=== PATIENT | female | born 1955 | race Caucasian/White ===

== ENCOUNTER 2019-10-03 23:58 | Inpatient (IN) | payer OTHER, SELFPAY ==
[2019-10-04] MEDS ORDERED: NA CHLORIDE 0.9% 1,000 ML ONE ×2 (00:26→01:47)
[2019-10-04 00:40] LABS: Absolute Lymphocytes (CBC) 2.6 K/uL (0.7-4.9); Basophils % 0.9 % (0-1.3); Hematocrit 42.3 % (36.0-45.0); Lymphocytes % 32.1 % (15.3-44.8); MPV 10.4 fL (7.6-11.3); RBC Red Blood Cell Count 4.58 M/uL (3.86-4.86)
[2019-10-04 00:43] LABS: Urine Glucose NEGATIVE (NEG); Urine Specific Gravity >1.030 (1.005-1.030)
[2019-10-04 00:44] LABS: Urine Blood NEGATIVE (NEG); Urine Protein TRACE (NEG)
[2019-10-04 00:52] LABS: Albumin 4.2 g/dL (3.4-5.0); Bilirubin Direct 0.1 mg/dL (0-0.2); Bilirubin Total 0.4 mg/dL (0.2-1.0); Potassium 3.7 mmol/L (3.5-5.1); Protein, Total 7.9 g/dL (6.4-8.2)
[2019-10-04] MEDS ORDERED: NACHLORIDE 0.45% 0 ML IV ONE (01:44)
[2019-10-04] MEDS ORDERED: CIPROFLOXACIN 400mg IV 400 MG/200 ML BAG IV ONE (01:45)
[2019-10-04] MEDS ORDERED: METRONIDAZOLE 500mg IVPB 500 MG/100 ML BAG IV ONE (01:45)
[2019-10-04] MEDS ORDERED: DIPHENHYDRAMINE 50 MG/ML VIAL ONE (01:47)
--- NOTE | 2019-10-04 02:06 | ER ---
Nurse's Notes [facility] Name: Claribel Clayton Age: 63 yrs Sex: Female : 1955 Arrival Date: 10/04/2019 Time: 00:00 Bed 19 Private MD: Diagnosis: Unspecified intestinal obstruction-secondary to mass Presentation: 10/04 00:10 Presenting complaint: Patient states: C/O abdominal pain and cramping for a week now wh associated with nausea and vomiting. Pt states she has an appointment with PCP next week but came to ER because she cant take the pain anymore. Transition of care: patient was not received from another setting of care. Onset of symptoms was October 04, 2019. Risk Assessment: Do you want to hurt yourself or someone else? Patient reports no desire to harm self or others. Initial Sepsis Screen: Does the patient meet any 2 criteria? No. Patient's initial sepsis screen is negative. Does the patient have a suspected source of infection? Yes: Acute abdominal pain. Care prior to arrival: None. 00:10 Method Of Arrival: Ambulatory 00:10 Acuity: MARIANNE 3 Historical: - Allergies: 00:42 Codeine; 00:42 PENICILLINS; wh - Home Meds: 00:42 lisinopril 20 mg Oral tab 1 tab twice a day [Active]; levothyroxine 25 mcg tab 1 tab wh once daily [Active]; - PMHx: 00:42 CVA; Hypertension; Hypothyroidism; wh - Immunization history:: Adult Immunizations not up to date. - Social history:: Smoking status: Patient uses tobacco products, denies chronic smoking, but will smoke occasionally. - Ebola Screening: : Patient negative for fever greater than or equal to 101.5 degrees Fahrenheit, and additional compatible Ebola Virus Disease symptoms Patient denies exposure to infectious person. Screenin:40 Abuse screen: Denies threats or abuse. Denies injuries from another. Nutritional screening: No deficits noted. Tuberculosis screening: No symptoms or risk factors identified. Fall Risk None identified. Assessment: 00:42 General: Appears in no apparent distress. Behavior is calm, cooperative, appropriate wh for age. Pain: Complains of pain in right lower quadrant and left lower quadrant Pain does not radiate. Pain currently is 5 out of 10 on a pain scale. Quality of pain is described as crampy, Pain began a week ago. Pain: Is intermittent. Neuro: Level of Consciousness is awake, alert, obeys commands, Oriented to person, place, time, situation, Appropriate for age. Cardiovascular: Heart tones S1 S2. Respiratory: Airway is patent Respiratory effort is even, unlabored, Respiratory pattern is regular, symmetrical, Breath sounds are clear bilaterally. GI: Abdomen is flat, non-distended, Bowel sounds present X 4 quads. Abd is soft and non tender X 4 quads. Reports cramping, nausea, vomiting. : No signs and/or symptoms were reported regarding the genitourinary system. EENT: No signs and/or symptoms were reported regarding the EENT system. Derm: Skin is intact, is healthy with good turgor, Skin is pink, warm \T\ dry. normal. Musculoskeletal: Circulation, motion, and sensation intact. 00:46 Reassessment: PT BP elevated notified Provider, Pt requesting to take her own BP pill wh from home meds, Provider agreaable. 02:05 Reassessment: Patient appears in no apparent distress at this time. No changes from previously documented assessment. Patient and/or family updated on plan of care and expected duration. Pain level reassessed. Patient is alert, oriented x 3, equal unlabored respirations, skin warm/dry/pink. 03:17 Reassessment: Patient appears in no apparent distress at this time. No changes from previously documented assessment. Patient and/or family updated on plan of care and expected duration. Pain level reassessed. Patient is alert, oriented x 3, equal unlabored respirations, skin warm/dry/pink. Vital Signs: 00:44 BP 192 / 98; Pulse 76; Resp 18; Temp 98.2; Pulse Ox 100% ; Weight 61.23 kg; Height 5 wh ft. 4 in. (162.56 cm); 01:30 BP 172 / 92; Pulse 76; Resp 18; Pulse Ox 97% on R/A; oe 03:00 BP 184 / 93; Pulse 89; Resp 18; Pulse Ox 99% on R/A; oe 00:44 Body Mass Index 23.17 (61.23 kg, 162.56 cm) ED Course: 00:00 Patient arrived in ED. cf2 00:07 Carolyne Montanez FNP-C is PHCP. kb 00:07 Braulio Bellamy MD is Attending Physician. kb 00:27 eFrmin Paiz is Primary Nurse. wh 00:40 Triage completed. wh 00:42 Patient has correct armband on for positive identification. Placed in gown. Bed in low wh position. Call light in reach. Side rails up X 1. Pulse ox on. NIBP on. 00:44 Arm band placed on. wh 00:44 Inserted saline lock: 22 gauge in right forearm, using aseptic technique. Blood wh collected. By Eduardo Landa RN. 00:45 Radiology exam delayed due to lab results not completed at this time. (BUN/Creatinine). kw1 01:17 Abdomen In Process Unspecified. EDMS 02:04 Gustavo Carson MD is Hospitalizing Provider. kb 03:17 No provider procedures requiring assistance completed. Patient admitted, IV remains in wh place. Administered Medications: 00:27 Drug: NS 0.9% 1000 ml Route: IV; Rate: 1000 ml; Site: right forearm; 02:02 Follow up: Response: No adverse reaction; IV Status: Completed infusion wh 01:44 CANCELLED (Other Intervention Used): NS 0.45 % 1000 ml IV at 125 ml/hr continuous kb 01:55 Drug: NS 0.9% 1000 ml Route: IV; Rate: 125 ml/hr; Site: right forearm; 03:05 Follow up: Response: No adverse reaction; IV Status: Infusion continued upon admission wh 01:58 Drug: Benadryl 12.5 mg Route: IVP; Site: right forearm; 02:23 Follow up: Response: No adverse reaction 02:00 Drug: Flagyl 500 mg Volume: 100 ml; Route: IVPB; Rate: 200 ml/hr; Infused Over: 30 wh mins; Site: right forearm; 02:23 Follow up: Response: No adverse reaction; IV Status: Completed infusion 02:18 Drug: Zofran 4 mg Route: IVP; Site: right forearm; 03:04 Follow up: Response: No adverse reaction; Nausea is decreased 02:20 Drug: fentaNYL (PF) 25 mcg {Note: RASS 0.} Route: IVP; Site: right forearm; 03:04 Follow up: Response: No adverse reaction; Pain is decreased; RASS: Alert and Calm (0) 02:22 Drug: Cipro 400 mg Volume: 200 ml; Route: IVPB; Infused Over: 60 mins; Site: right wh forearm; 03:05 Follow up: Response: No adverse reaction; IV Status: Completed infusion 03:03 Drug: hydrALAZINE 5 mg Route: IV; Rate: calculated rate; Site: right forearm; 03:19 Follow up: Response: No adverse reaction; IV Status: Completed infusion Outcome: 02:04 Decision to Hospitalize by Provider. kb 03:17 Admitted to Med/surg accompanied by tech, via wheelchair, room 206. 03:17 Admitted to Med/surg Report called to Reuben Trejo RN 03:17 Condition: stable 03:17 Instructed on the need for admit. 03:20 Patient left the ED. Signatures: Dispatcher [employer] EDCarolyne Gomez, REGLA-Marty SALES ACTIVITY MANAGER-CkEduardo Aguayo Winsy Nina Emanuel kw1 Yuli Waggoner2
--- NOTE | 2019-10-04 02:06 | EDPHYS ---
Physician Documentation [facility] Name: Claribel Clayton Age: 63 yrs Sex: Female : 1955 Arrival Date: 10/04/2019 Time: 00:00 Bed 19 Private MD: ED Physician Braulio Bellamy HPI: 10/04 01:04 This 63 yrs old Female presents to ER via Ambulatory with complaints of kb Abdominal Pain. 01:04 The patient presents with abdominal pain in the left lower quadrant. Onset: The kb symptoms/episode began/occurred 7 day(s) ago. The symptoms do not radiate. Associated signs and symptoms: Pertinent positives: nausea and vomiting. The symptoms are described as crampy, intermittent. Modifying factors: The symptoms are alleviated by nothing, the symptoms are aggravated by eating or drinking anything. Severity of pain: At its worst the pain was moderate in the emergency department the pain has resolved. The patient has not experienced similar symptoms in the past. The patient has not recently seen a physician. Pt reports LLQ cramps that are intermittent, abd bloating and nausea/vomiting. Reports cramps and bloating started 7 days ago and seems to be getting worse. Reports nausea and vomiting last night. States a lot of her coworkers are out with the stomach bug. Historical: - Allergies: 00:42 Codeine; wh 00:42 PENICILLINS; wh - Home Meds: 00:42 lisinopril 20 mg Oral tab 1 tab twice a day [Active]; levothyroxine 25 mcg tab 1 tab wh once daily [Active]; - PMHx: 00:42 CVA; Hypertension; Hypothyroidism; wh - Immunization history:: Adult Immunizations not up to date. - Social history:: Smoking status: Patient uses tobacco products, denies chronic smoking, but will smoke occasionally. - Ebola Screening: : Patient negative for fever greater than or equal to 101.5 degrees Fahrenheit, and additional compatible Ebola Virus Disease symptoms Patient denies exposure to infectious person. ROS: 01:04 Constitutional: Negative for fever, chills, and weight loss, ENT: Negative for injury, kb pain, and discharge, Neck: Negative for injury, pain, and swelling, Cardiovascular: Negative for chest pain, palpitations, and edema, Respiratory: Negative for shortness of breath, cough, wheezing, and pleuritic chest pain, Back: Negative for injury and pain, : Negative for injury, bleeding, discharge, and swelling, MS/Extremity: Negative for injury and deformity, Skin: Negative for injury, rash, and discoloration, Neuro: Negative for headache, weakness, numbness, tingling, and seizure. 01:04 Abdomen/GI: Positive for abdominal pain, nausea and vomiting. Exam: 01:04 Constitutional: This is a well developed, well nourished patient who is awake, alert, kb and in no acute distress. Head/Face: Normocephalic, atraumatic. ENT: Nares patent. No nasal discharge, no septal abnormalities noted. Tympanic membranes are normal and external auditory canals are clear. Oropharynx with no redness, swelling, or masses, exudates, or evidence of obstruction, uvula midline. Mucous membranes moist. Neck: Trachea midline, no thyromegaly or masses palpated, and no cervical lymphadenopathy. Supple, full range of motion without nuchal rigidity, or vertebral point tenderness. No Meningismus. Chest/axilla: Normal chest wall appearance and motion. Nontender with no deformity. No lesions are appreciated. Cardiovascular: Regular rate and rhythm with a normal S1 and S2. No gallops, murmurs, or rubs. Normal PMI, no JVD. No pulse deficits. Respiratory: Lungs have equal breath sounds bilaterally, clear to auscultation and percussion. No rales, rhonchi or wheezes noted. No increased work of breathing, no retractions or nasal flaring. Back: No spinal tenderness. No costovertebral tenderness. Full range of motion. Skin: Warm, dry with normal turgor. Normal color with no rashes, no lesions, and no evidence of cellulitis. MS/ Extremity: Pulses equal, no cyanosis. Neurovascular intact. Full, normal range of motion. Neuro: Awake and alert, GCS 15, oriented to person, place, time, and situation. Cranial nerves II-XII grossly intact. Motor strength 5/5 in all extremities. Sensory grossly intact. Cerebellar exam normal. Normal gait. 01:04 Abdomen/GI: Inspection: abdomen appears normal, Bowel sounds: normal, in all quadrants, Palpation: soft, in all quadrants, mild abdominal tenderness, in the left lower quadrant. Vital Signs: 00:44 BP 192 / 98; Pulse 76; Resp 18; Temp 98.2; Pulse Ox 100% ; Weight 61.23 kg; Height 5 wh ft. 4 in. (162.56 cm); 01:30 BP 172 / 92; Pulse 76; Resp 18; Pulse Ox 97% on R/A; oe 03:00 BP 184 / 93; Pulse 89; Resp 18; Pulse Ox 99% on R/A; oe 00:44 Body Mass Index 23.17 (61.23 kg, 162.56 cm) wh MDM: 00:07 Patient medically screened. kb 01:06 Data reviewed: vital signs, nurses notes. Data interpreted: Pulse oximetry: on room air kb is 100 %. Interpretation: normal. 01:44 Counseling: I had a detailed discussion with the patient and/or guardian regarding: the kb historical points, exam findings, and any diagnostic results supporting the discharge/admit diagnosis, lab results, radiology results, the need for further work-up and treatment in the hospital. 01:46 Physician consultation: Gustavo Carson MD was contacted at 01:49, regarding admission, kb to the medical/surgical unit. patient's condition, wants Dr Houston consulted first to make sure GI is not needed in this case. . 02:02 Physician consultation: Boris Houston MD was contacted at 02:02, regarding consult, patient's condition, and will see patient later today. 02:02 Physician consultation: Gustavo Carson MD was contacted at 02:02, regarding admission, patient's condition, and will see patient shortly. 10/04 00:16 Order name: Basic Metabolic Panel kb 10/04 00:16 Order name: CBC with Diff kb 10/04 00:16 Order name: Hepatic Function; Complete Time: 00:53 kb 10/04 00:16 Order name: Lipase; Complete Time: 00:53 kb 10/04 00:17 Order name: Basic Metabolic Panel; Complete Time: 00:53 EDMS 10/04 00:17 Order name: CBC with Automated Diff; Complete Time: 00:43 EDMS 10/04 00:25 Order name: Urine Dipstick--Ancillary (enter results); Complete Time: 00:53 ar5 10/04 02:50 Order name: CBC with Automated Diff EDMS 10/04 02:50 Order name: CBC with Automated Diff EDMS 10/04 02:50 Order name: Carcinoembryonic Antigen EDLA 10/04 02:50 Order name: Carcinoembryonic Antigen EDLA 10/04 02:50 Order name: Comprehensive Metabolic Panel EDLA 10/04 02:50 Order name: Comprehensive Metabolic Panel EDLA 10/04 02:50 Order name: Magnesium EDMS 10/04 00:57 Order name: Abdomen EDMS 10/04 02:50 Order name: Magnesium EDMS 10/04 02:50 Order name: Phosphorus EDMS 10/04 02:50 Order name: Phosphorus EDMS 10/04 02:50 Order name: Protime (+INR) EDMS 10/04 02:50 Order name: Protime (+INR) EDLA 10/04 02:50 Order name: PTT, Activated Partial Thromb EDLA 10/04 02:50 Order name: PTT, Activated Partial Thromb EDLA 10/04 00:16 Order name: IV Saline Lock; Complete Time: 00:27 kb 10/04 00:16 Order name: Labs collected and sent; Complete Time: 00:27 kb 10/04 00:16 Order name: Urine Dipstick-Ancillary (obtain specimen); Complete Time: 00:27 kb 10/04 02:49 Order name: CONS Physician Consult [facility] 10/04 02:49 Order name: NPO EDLA Administered Medications: 00:27 Drug: NS 0.9% 1000 ml Route: IV; Rate: 1000 ml; Site: right forearm; 02:02 Follow up: Response: No adverse reaction; IV Status: Completed infusion 01:44 CANCELLED (Other Intervention Used): NS 0.45 % 1000 ml IV at 125 ml/hr continuous kb 01:55 Drug: NS 0.9% 1000 ml Route: IV; Rate: 125 ml/hr; Site: right forearm; 03:05 Follow up: Response: No adverse reaction; IV Status: Infusion continued upon admission wh 01:58 Drug: Benadryl 12.5 mg Route: IVP; Site: right forearm; 02:23 Follow up: Response: No adverse reaction 02:00 Drug: Flagyl 500 mg Volume: 100 ml; Route: IVPB; Rate: 200 ml/hr; Infused Over: 30 wh mins; Site: right forearm; 02:23 Follow up: Response: No adverse reaction; IV Status: Completed infusion 02:18 Drug: Zofran 4 mg Route: IVP; Site: right forearm; 03:04 Follow up: Response: No adverse reaction; Nausea is decreased 02:20 Drug: fentaNYL (PF) 25 mcg {Note: RASS 0.} Route: IVP; Site: right forearm; 03:04 Follow up: Response: No adverse reaction; Pain is decreased; RASS: Alert and Calm (0) 02:22 Drug: Cipro 400 mg Volume: 200 ml; Route: IVPB; Infused Over: 60 mins; Site: right forearm; 03:05 Follow up: Response: No adverse reaction; IV Status: Completed infusion 03:03 Drug: hydrALAZINE 5 mg Route: IV; Rate: calculated rate; Site: right forearm; 03:19 Follow up: Response: No adverse reaction; IV Status: Completed infusion Disposition: 09:00 Co-signature as Attending Physician, Braulio Bellamy MD I agree with the assessment and emigdio plan of care. Disposition: 10/04/19 02:04 Hospitalization ordered by Gustavo Carson for Inpatient Admission. Preliminary diagnosis is Unspecified intestinal obstruction - secondary to mass. - Bed requested for Telemetry/MedSurg (Inpatient). - Status is Inpatient Admission. - Condition is Stable. - Problem is new. - Symptoms are unchanged. UTI on Admission? No Signatures: Dispatcher [employer] Carolyne Larson, LOOM OPERATOR APPRENTICE-C LOOM OPERATOR APPRENTICE-Ckb Braulio Bellamy MD MD cha Ballard, Brenda, RN RN Fermin Rodriguez Corrections: (The following items were deleted from the chart) 00:57 00:17 Abdomen Pelvis W Con+CT.RAD.BRZ ordered. EDLA EDLA 01:44 01:37 NS 0.45 % 1000 ml IV at 125 ml/hr continuous ordered. kb kb 02:33 02:04 Hospitalization Ordered by Gustavo Carson MD for Inpatient Admission. Preliminary bb diagnosis is Unspecified intestinal obstruction - secondary to mass. Bed requested for Telemetry/MedSurg (Inpatient). Status is Inpatient Admission. Condition is Stable. Problem is new. Symptoms are unchanged. UTI on Admission? No. kb 03:20 02:33 10/04/2019 02:04 Hospitalization Ordered by Gustavo Carson MD for Inpatient Admission. Preliminary diagnosis is Unspecified intestinal obstruction - secondary to mass. Bed requested for Telemetry/MedSurg (Inpatient). Status is Inpatient Admission. Condition is Stable. Problem is new. Symptoms are unchanged. UTI on Admission? No. bb
[2019-10-04] MEDS ORDERED: FENTANYL CITR 100 MCG/2 ML ONE ×2 (02:18→13:08)
[2019-10-04] MEDS ORDERED: ONDANSETRON 4 MG/2 ML VIAL ONE ×2 (02:18→13:09)
[2019-10-04] MEDS ORDERED: ACETAMINOPHEN 650MG/RECT SUPP RECT PRN (02:44)
[2019-10-04] MEDS ORDERED: NA CHLORIDE 0.9% 1,000 ML IV SCH ×2 (03:00→13:00)
[2019-10-04] MEDS ORDERED: HYDRALAZINE HCL 20 MG/ML VIAL ONE (03:01)
[2019-10-04] MEDS ORDERED: Levofloxacin500mg IV 500 MG/100 ML BAG IV ONE (04:00)
[2019-10-04] MEDS: HYDROMORPHONE HCL 1 MG/ML INJ IV PRN ×3 (04:53→23:33)
[2019-10-04] MEDS: ONDANSETRON 4 MG/2 ML VIAL IV PRN ×3 (04:53→12:35)
[2019-10-04] MEDS: METRONIDAZOLE 500mg IVPB 500 MG/100 ML BAG IV SCH ×4 (06:11→23:26)
[2019-10-04] MEDS ORDERED: ONDANSETRON 4 MG/2 ML VIAL IV ONE (06:32)
[2019-10-04] MEDS ORDERED: METOPROLOL TARTRATE 5 MG/5 ML INJ IV STA (07:17)
--- NOTE | 2019-10-04 07:59 | P.HP ---
Certification for Inpatient Patient admitted to: Inpatient With expected LOS: >2 Midnights Patient will require the following post-hospital care: None Practitioner: I am a practitioner with admitting privileges, knowledge of patient current condition, hospital course, and medical plan of care. Services: Services provided to patient in accordance with Admission requirements found in Title 42 Section 412.3 of the Code of Federal Regulations Patient History Date of Service: 10/04/19 Reason for admission: Abdominal pain; intractable nausea and vomiting; sigmoid colon mass History of Present Illness: Patient is 63-year-old female came to the hospital with severe abdominal pain. This is been going on for the last 5 days and has progressively worsened. Patient was trying to stay working at the [employer] but the pain became so severe. She started having intractable nausea and vomiting. She came into the ER for further evaluation. In the emergency room patient was found have moderate amount of stool in her left colon. She also had a sigmoid colon mass that was 5.5 cm x 4.4cm. Spoke to ER mid level and they spoke with General surgery. They wanted to admit the patient to our hospital and proceed with further workup while she is an inpatient. Will admit her and get her medically stable for surgical intervention. He will probably need a partial colectomy. Surgery to further evaluate later today. Allergies Penicillins Allergy (Intermediate, Verified 10/04/19 03:45) Hives/Rash codeine [Codeine] Adverse Reaction (Mild, Verified 10/04/19 03:45) Nausea/Vomiting Home Medications: Levothyroxine Sodium 25 mcg PO DAILY 10/04/19 Lisinopril 1 tab PO BID 10/04/19 - Past Medical/Surgical History Has patient received pneumonia vaccine in the past: No Diabetic: No -: CVA -: HTN -: Hypothyroidism Past Surgical History: Patient denies surgical history - Family History Father Family History: Reviewed- Non-Contributory - Social History Smoking Status: Never smoker Alcohol use: Yes CD- Drugs: No Caffeine use: Yes Place of Residence: Home Review of Systems 10-point ROS is otherwise unremarkable Physical Examination - Vital Signs Temperature: 97.9 F Blood Pressure: 181/95 Pulse: 115 Respirations: 18 Pulse Ox (%): 97 - Physical Exam General: Alert, In no apparent distress HEENT: Atraumatic, PERRLA, Mucous membr. moist/pink, EOMI, Sclerae nonicteric Neck: Supple, 2+ carotid pulse no bruit, No LAD, Without JVD or thyroid abnormality Respiratory: Clear to auscultation bilaterally, Normal air movement Cardiovascular: Regular rate/rhythm, Normal S1 S2, No murmurs Gastrointestinal: Normal bowel sounds, Soft and benign, Non-distended, Tenderness (Mild tenderness in left lower quadrant) Musculoskeletal: No clubbing, No swelling, No tenderness Integumentary: No rashes Neurological: Normal gait, Normal speech, Normal strength at 5/5 x4 extr, Normal tone, Sensation intact, Cranial nerves 3-12 intact, Normal affect Lymphatics: No axilla or inguinal lymphadenopathy - Studies Laboratory Data (last 24 hrs) 10/04/19 00:26: WBC 8.0, Hgb 14.4, Hct 42.3, Plt Count 196 10/04/19 00:26: Sodium 139, Potassium 3.7, BUN 34 H, Creatinine 1.62 H, Glucose 109 H, Total Bilirubin 0.4, AST 20, ALT 26, Alkaline Phosphatase 92, Lipase 74 Assessment & Plan - Problems (Diagnosis) (1) Colonic mass Current Visit: Yes Status: Acute (2) Uncontrolled hypertension Current Visit: Yes Status: Acute (3) Large bowel obstruction Current Visit: Yes Status: Acute - Plan 1. Continue with IV hydration 2. Continue with IV antibiotics 3. Continue with pain control 4. NPO 5. General surgery consultation; 6. Serial H&H, and we will monitor CBC, BMP, LFTs and lipase along with electrolytes. 7. Strict blood pressure control 8. Patient with a history of stroke. However, over the last few years she has had no chest pain or shortness of breath. She is hemodynamically stable. She is low risk for cardiopulmonary complications for surgery. The benefits of her surgery outweigh the risk at this time so would recommend proceeding with surgical intervention if patient has treatable colon cancer that could be curative with partial colectomy. 9. GI and DVT prophylaxis Discharge Plan: Home Plan to discharge in: Greater than 2 days - Advance Directives Does patient have a Living Will: No Does patient have a Durable POA for Healthcare: No - Code Status/Comfort Care Code Status Assessed: Yes Code Status: Full Code Critical Care: No Time Spent Managing PTS Care (In Minutes): 45
[2019-10-04] MEDS ORDERED: METOPROLOL TARTRATE 5 MG/5 ML INJ IV PRN (09:15)
[2019-10-04] MEDS ORDERED: KCL 20 MEQ/100 mL IVPB 20 MEQ/100 ML BAG IV SCH (10:00)
[2019-10-04 10:38] LABS: Magnesium 2.1 mg/dL (1.8-2.4); Uric Acid 4.6 mg/dL (2.6-6.0)
--- NOTE | 2019-10-04 11:34 | P.PN ---
Subjective Date of Service: 10/04/19 Primary Care Provider: Dr. May Chief Complaint: Abdominal pain; intractable nausea and vomiting; sigmoid colon mass Subjective: Other (Patient stable this time. NG tube in place. Pain to the abdomen improved) Physical Examination - Vital Signs Temperature: 97.9 F Blood Pressure: 181/95 Pulse: 115 Respirations: 18 Pulse Ox (%): 97 - Physical Exam General: Alert, In no apparent distress, Cooperative HEENT: Atraumatic, Other (NG tube in place) Neck: Supple Respiratory: Clear to auscultation bilaterally, Normal air movement Cardiovascular: Abnormal pulses (Sinus tachycardia) Gastrointestinal: Hypoactive, Distended, Tenderness (No significant tenderness noted. Abdominal distention noted) Musculoskeletal: No erythema, No tenderness, No warmth Integumentary: No erythema, No warmth, No cyanosis Neurological: Normal speech, Normal strength at 5/5 x4 extr, Normal tone, Normal affect - Studies Laboratory Data (last 24 hrs) 10/04/19 00:26: WBC 8.0, Hgb 14.4, Hct 42.3, Plt Count 196 10/04/19 00:26: Sodium 139, Potassium 3.7, BUN 34 H, Creatinine 1.62 H, Glucose 109 H, Total Bilirubin 0.4, AST 20, ALT 26, Alkaline Phosphatase 92, Lipase 74 Medications List Reviewed: Yes Assessment & Plan Discharge Plan: Home Plan to discharge in: Greater than 2 days Physician Review Additional Text: Impression: Nausea, vomiting and abdominal pain secondary to large bowel obstruction complicated with 5 x 4 cm sigmoid mass Hypertension, uncontrolled Acute renal injury likely chronic disease Hypothyroidism Chronic seasonal allergies Plan: Nausea, vomiting and abdominal pain secondary to large bowel obstruction complicated with 5 x 4 cm sigmoid mass: Patient remains NPO at this time. NG tube in place. Await surgery recommendations. Patient will likely require surgical intervention. Will need to discuss with surgery if patient will require GI evaluation prior to surgery. Hypertension, uncontrolled: Will provide medication IV. Acute renal injury likely chronic disease: Continue IV fluids. Will consult Nephrology to further evaluate. Will have pharmacy adjust antibiotic therapy per renal function. Hypothyroidism: Will start medication IV Chronic seasonal allergies: Will provide nasal spray. Time Spent Managing Pts Care (In Minutes): 55
[2019-10-04] MEDS: METOPROLOL TARTRATE 5 MG/5 ML INJ IV SCH ×4 (12:00→23:26)
[2019-10-04] MEDS: NA CHLORIDE 0.9% 1,000 ML IV SCH ×2 (12:02→19:06)
[2019-10-04] MEDS: FLUTICASONE 50MCG NASAL SPRAY NAS SCH ×2 (12:24→20:10)
[2019-10-04] MEDS: LEVOTHYROXINE SODIUM 100 MCG VIAL IV SCH (12:35)
[2019-10-04] MEDS ORDERED: CLONIDINE 0.1 MG/PATCH TD SCH (13:00)
[2019-10-04] MEDS ORDERED: GLYCOPYRROLATE 0.2 MG/ML SYR ONE (13:08)
[2019-10-04] MEDS ORDERED: PROPOFOL 200 MG/20 ML VIAL IV ONE (13:08)
[2019-10-04] MEDS ORDERED: MIDAZOLAM HCL 2 MG/2 ML INJ ONE (13:08)
[2019-10-04] MEDS ORDERED: LIDOCAINE 1% MPF 5 ML VIAL ONE (13:10)
[2019-10-04] MEDS ORDERED: ROCURONIUM 50 MG/5 ML VIAL IV ONE ×2 (13:10→15:21)
[2019-10-04] MEDS ORDERED: KETOROLAC 30 MG/ML INJ ONE (13:10)
[2019-10-04] MEDS ORDERED: NEOSTIGMINE 1 MG/ML -5 ML ONE (13:10)
[2019-10-04] MEDS ORDERED: Ringers Lactate 1,000 ML IV ONE ×2 (13:18→15:07)
--- NOTE | 2019-10-04 13:29 | P.CNS ---
Primary Care Provider: Dr. May Chief Complaint: Abdominal pain; intractable nausea and vomiting; sigmoid colon mass Allergies Penicillins Allergy (Intermediate, Verified 10/04/19 03:45) Hives/Rash codeine [Codeine] Adverse Reaction (Mild, Verified 10/04/19 03:45) Nausea/Vomiting Home Medications: Levothyroxine Sodium 25 mcg PO DAILY 10/04/19 Lisinopril 1 tab PO BID 10/04/19 - Past Medical/Surgical History Diabetic: No -: CVA -: HTN -: Hypothyroidism - Family History Father Family History: Reviewed- Non-Contributory - Social History Smoking Status: Current some day smoker Alcohol use: Yes CD- Drugs: No Caffeine use: Yes Place of Residence: Home Physical Examination Temp Pulse Resp BP Pulse Ox 97.9 F 99 H 18 140/90 97 10/04/19 11:34 10/04/19 12:00 10/04/19 11:34 10/04/19 12:40 10/04/19 11:34 Laboratory Data (last 24 hrs) 10/04/19 00:26: WBC 8.0, Hgb 14.4, Hct 42.3, Plt Count 196 10/04/19 00:26: Sodium 139, Potassium 3.7, BUN 34 H, Creatinine 1.62 H, Glucose 109 H, Total Bilirubin 0.4, AST 20, ALT 26, Alkaline Phosphatase 92, Lipase 74
--- NOTE | 2019-10-04 13:32 | P.CNS ---
Date of Consult: 10/04/19 PC: This 63-year-old female presents emergency room with severe abdominal pain for diagnosis and treatment. HPC: Patient has noticed her abdomen is getting bigger over the last few days. Starting having pain in discomfort. Was trending is scheduled to be seen by her primary care physician and has an appointment for next week. However her discomfort became too great and she had to come to the emergency room. PMH: CVA, thyroid PSHx: Negative SOC: Allergic to penicillin codeine SYS REVIEW: No cough, wheeze, shortness of breath. No urinary complaints. States that she did not notice any real change in her bowel habit. However since this pain she has passed minimal gas per rectum. O/E awake alert uncomfortable vital signs however stable HEENT: Not jaundiced, NG tube in place Chest: Clear ABD: Markedly distended and tympanic LOCO: Intact DATA: CT scan demonstrates obstruction in the sigmoid colon IMPRESSION: Bowel obstruction PLAN: I will take to the operating room for exploratory laparotomy with probable colostomy. The risks of this procedure have been discussed. The possibility of bleeding, infection, injury to bowel blood vessels ureters were explained. She understands and wants us to proceed. She understands that this will not be a curative procedure and that she will require possible surgeries in the future.
[2019-10-04] MEDS ORDERED: MORPHINE 10 MG/ML VIAL ONE (13:34)
[2019-10-04] MEDS ORDERED: NA CHLORIDE 0.9% 250 ML ONE (15:14)
[2019-10-04] MEDS ORDERED: Mastisol Adhesive Liq ONE (16:08)
[2019-10-04] MEDS: HYDROMORPHONE HCL 1 MG/ML INJ ONE ×7 (16:36→17:07)
[2019-10-04] MEDS ORDERED: PROMETHAZINE 25 MG/ML VIAL ONE (16:56)
--- NOTE | 2019-10-04 16:59 | P.OP ---
Preoperative diagnosis: Bowel obstruction Postoperative diagnosis: Obstructing lesion of the sigmoid colon Primary procedure: Sigmoid resection Secondary procedure: And colostomy Estimated blood loss: Less than 30 cc Specimen: Sigmoid colon Operative Technique: The patient brought the operating room placed supine on the table. After the induction of adequate general endotracheal anesthesia, the area of the abdomen was prepped with a DuraPrep solution, and she was draped in usual aseptic manner. A generous midline incision was made. This was started approximately 3 fingers breath above the emboli kiss and brought down to just above the pubic symphysis. The underlying tissue was divided. The fascia was opened in the upper midline and this was now extended all way down to the bottom of our incision. The peritoneal cavity having been opened we were able to inspect its contents. We could see a tremendously dilated cecum transverse colon and descending colon. On tracing this was dilation of the bowel distally we could see that extended just over the pelvic brim and appeared to originate from just anterior to the sacral prominence. The Bookwalter retractor was put into position. We were now able to maneuver around the sigmoid colon on the left side. The peritoneum was opened in the bowel was mobilize medially. It was wrapped in the broad ligament of the ovary. It was removed from this and traced more medially. It appeared to be quite fixed into the true pelvis. There was a piece of small bowel that was adherent to it this was freed and allowed to returned to its normal domicile. We opened the peritoneum on the lateral left side. We were finally able to trace this down below this obstructing tumor to soft colon just above the peritoneal reflection. This maneuver was repeated on the right side in order to come down the posterior portion and take down the mesentery the bowel was divided using the VJ AE. We were now able to dissect posteriorly at takedown baby's of colon to this portion of the sigmoid. The edgar Stapler was finally placed across the bowel where it was soft enough to allow us to do so. The issue was fired and the specimen detached. The pelvis now inspected to insure adequate hemostasis. The was some venous bleeding. This was controlled with electro cautery. A Tarik- Desai drain was placed down into the true pelvis and brought out through the right lateral lower quadrant. At this point in the bowel was run. No other lesions were seen in this area. He was returned to its normal anatomical position. The colostomy site which had been marked preoperatively was now form. A circular plug of tissue was removed from the anterior abdominal wall. This is brought down to the fascia which was opened in a cruciate manner. 2 fingers were now placed into the lateral portion of the rectus sheath. The bowel was delivered up through this. The preliminary count was correct as we close the fascia. The skin was then stapled. The mom was placed over the suture line. Attention was turned towards the colostomy site itself. It was with opened and matured by his fixing it to the skin with interrupted sutures of chromic. A colostomy appliance to place on top. At the end of the procedure the patient was in a stable condition when sent to the recovery room. The final needle sponge count were correct. 1 Tarik-Desai drain had been placed. She was in a stable condition with an estimated blood loss were approximately 40 cc. Complications: None Drain(s): AGGIE drain Transferred to: Recovery Room Condition: Good
[2019-10-04] MEDS: ENOXAPARIN 40 MG/0.4 ML SQ SCH (17:00)
[2019-10-04] MEDS ORDERED: ONDANSETRON 4 MG/2 ML VIAL IV PRN (17:01)
[2019-10-04] MEDS ORDERED: MORPHINE 4 MG/ML SYR IV PRN (17:01)
--- NOTE | 2019-10-04 17:31 | CON ---
Date of Consultation: 10/04/2019 Reason For Consultation: Elevated BUN and creatinine. History Of Present Illness: This is a pleasant 63-year-old female with significant past medical hist ory of hypothyroidism, hypertension, patient came to the hospital complaining of abdominal pain for t he last couple of weeks to try to get to her primary care and because of overbook, she could not get to him. Patient denied taking any nonsteroidal. Upon admission workup, CT did not show any obstruct ion, but show possible colon mass. Patient was started on IV hydration. Original lab workup showed elevation in BUN and creatinine. For that reason, we have been consulted. Creatinine 1.6. Patient denied any knowledge of any kidney disease before reviewing the record for the patient back in 2016, creatinine 1. GFR of 54. Patient denied taking any nonsteroidal, no IV contrast. Patient denied any change in her medication recently. Patient still have nausea and vomiting. Past Medical History: 1.Hypertension. 2.Hypothyroidism. Allergies: TO PENICILLIN AND CODEINE. Home Medications: Include lisinopril and levothyroxine. Past Surgical History: Negative. Family History: Positive for hypertension. Social History: Denies smoking. Occasional alcohol. Denies drug abuse. Review of Systems: Head and Neck: No red eye. No ear pain. GI: Has nausea and vomiting. : No polyuria, no dysuria, no hematuria. Radiation Protection Technician: No vaginal discharge. Respiratory: No shortness of breath. Cardiovascular: No chest pain. Endocrine: No polydipsia. Skin: No rash. Neuro: No neuropathy. Musculoskeletal: No joint pain. Physical Examination: Vital signs: Blood pressure 181/95, pulse of 115. Head and Neck: No red eye. Lungs: Clear to auscultation. Heart: S1, S2. Tachycardic. Abdomen: Mild tenderness. EXTREMITIES: No edema. Neurologic: Alert and oriented x3. No focal. Current Medications: The patient is on: 1.Levaquin 250 q.24 hours. 2.Flagyl 500 t.i.d. 3.Lovenox. 4.Metoprolol p.r.n. 5.Tylenol. 6.Zofran. 7.Levothyroxine. 8.IV fluid, normal saline at 100 per hour. 9.Lovenox. 10.KCl. Laboratory Data: Sodium 139, potassium 3.7, bicarb 27, BUN 34, creatinine 1.6, GFR of 32, calcium 9. 4. WBC 8, H and H 14.4/42.3, platelet 196. Urinalysis; specific gravity of 1.030. Assessment And Plan: 1.Acute kidney injury secondary to prerenal, secondary to dehydration look to me still on the dry si de. I am going to bolus the patient with 1 L of normal saline. We will increase IV fluid to 125 and we will follow up the patient. 2.Hypertension, not controlled. Given the patient cannot take anything p.o., I am going to place th e patient on clonidine patch. Hold lisinopril given the acute kidney injury. 3.Hypokalemia. We will supplement. 4.Alkalosis secondary to contraction alkalosis. We will hydrate the patient. 5.Colon mass. We will follow up with Surgery. EMILY Voice ID: [id number] Report ID: [id number]
[2019-10-05 05:16] LABS: Absolute Lymphocytes (CBC) 1.5 K/uL (0.7-4.9); Basophils % 0.4 % (0-1.3); Hematocrit 33.1 % (36.0-45.0); Lymphocytes % 9.7 % (15.3-44.8); MPV 11.2 fL (7.6-11.3); RBC Red Blood Cell Count 3.47 M/uL (3.86-4.86)
[2019-10-05 05:18] LABS: Protime INR 1.05
[2019-10-05] MEDS: NA CHLORIDE 0.9% 1,000 ML IV SCH ×2 (05:20→12:02)
[2019-10-05] MEDS: METRONIDAZOLE 500mg IVPB 500 MG/100 ML BAG IV SCH ×3 (05:21→17:20)
[2019-10-05] MEDS: LEVOTHYROXINE SODIUM 100 MCG VIAL IV SCH (05:21)
[2019-10-05 05:38] LABS: Albumin 2.9 g/dL (3.4-5.0); Bilirubin Total 0.5 mg/dL (0.2-1.0); Carcinoembryonic Antigen 3.4 ng/mL (0-5.0); Magnesium 2.1 mg/dL (1.8-2.4); Phosphorus 3.1 mg/dL (2.5-4.9); Potassium 4.7 mmol/L (3.5-5.1); Protein, Total 5.7 g/dL (6.4-8.2)
[2019-10-05] MEDS: METOPROLOL TARTRATE 5 MG/5 ML INJ IV SCH ×3 (05:42→17:35)
[2019-10-05 05:46] VITALS: BMI 24.3
[2019-10-05] MEDS: Levofloxacin 250mg IV 250 MG/50 ML BAG IV SCH (06:03)
[2019-10-05] MEDS: HYDROMORPHONE HCL 1 MG/ML INJ IV PRN ×4 (06:39→20:06)
[2019-10-05] MEDS: ONDANSETRON 4 MG/2 ML VIAL IV PRN ×4 (07:58→20:19)
--- NOTE | 2019-10-05 08:51 | P.PN ---
Subjective Date of Service: 10/05/19 Primary Care Provider: Dr. May Chief Complaint: Abdominal pain; intractable nausea and vomiting; sigmoid colon mass Subjective: Improving, Other (Postop pain well controlled.) Physical Examination - Vital Signs Temperature: 98.9 F Blood Pressure: 126/66 Pulse: 84 Respirations: 19 Pulse Ox (%): 96 - Physical Exam General: Alert, In no apparent distress, Oriented x3, Cooperative HEENT: Atraumatic Neck: Supple Respiratory: Clear to auscultation bilaterally, Normal air movement Cardiovascular: Normal pulses, Regular rate/rhythm Gastrointestinal: Hypoactive, Non-distended, Other (Colostomy bag in place. Postsurgical changes noted) Musculoskeletal: No tenderness, No warmth Integumentary: No erythema, No warmth, No cyanosis Neurological: Normal speech, Normal strength at 5/5 x4 extr, Normal tone, Normal affect - Studies Medications List Reviewed: Yes Assessment & Plan Discharge Plan: Home Plan to discharge in: Greater than 2 days Physician Review Additional Text: Impression: Nausea, vomiting and abdominal pain secondary to large bowel obstruction complicated with 5 x 4 cm sigmoid mass status post sigmoid resection and colostomy postop day 1 Hypertension, uncontrolled Acute renal injury likely chronic disease Hypothyroidism Chronic seasonal allergies Post operative anemia Plan: Nausea, vomiting and abdominal pain secondary to large bowel obstruction complicated with 5 x 4 cm sigmoid mass status post sigmoid resection and colostomy postop day 1: Patient remains NPO at this time. NG tube in place. Patient did well post operatively. Patient without significant pain. Encourage incentive spirometer. Continue IV fluids and antibiotic therapy. Await further recommendations from surgery. Patient likely can be transferred to the medical or today. If so will encourage ambulation. Will continue to monitor closely. Anticipate discharge likely at the end of the week. Hypertension, uncontrolled: Overall stable. Will provide medication IV. Acute renal injury likely chronic disease: This has improved with IV fluids. Continue IV fluids at this time. Await Nephrology to make changes. Hypothyroidism: Will continue with medication IV Chronic seasonal allergies: Provide medication. Encourage incentive spirometer. Postoperative anemia: Will continue to monitor closely. Time Spent Managing Pts Care (In Minutes): 55
[2019-10-05] MEDS: FLUTICASONE 50MCG NASAL SPRAY NAS SCH ×2 (09:26→20:06)
[2019-10-05 10:00] LABS: T4,Total 11.9 ug/dL (4.8-13.9); Thyroid Stimulating Hormone 0.416 uIU/mL (0.360-3.740)
[2019-10-05 11:07] LABS: Urine Appearance CLEAR; Urine Bilirubin NEGATIVE (NEG); Urine Blood 1+ (NEG); Urine Color YELLOW; Urine Glucose NEGATIVE (NEG); Urine Protein NEGATIVE (NEG); Urine Specific Gravity 1.025 (1.005-1.030); Urine Urobilinogen 0.2 mg/dL (0.2-1.0); Urine pH 5.5 (5.0-7.0)
[2019-10-05 11:15] LABS: Urine Protein/Creatinine Ratio 0.18 ratio (<0.15)
[2019-10-05 11:27] LABS: Urine Microscopic Reflex ORDER UMIC
[2019-10-05 11:52] LABS: Urine Bacteria <20 /HPF (<20); Urine Culture Reflex Order REFLEXED; Urine Mucus 1+ /HPF (NONE SEEN)
[2019-10-05] MEDS: POLYVINYL ALCOHOL 1.4% 15 ML EACH EYE SCH (12:50)
--- NOTE | 2019-10-05 13:49 | P.PN ---
Date of Service: 10/05/19 S: The patient has no specific complaints apart from the tube in her nose. Asking about her surgery. Details were given. O: Vital signs are stable, adequate urine output. Colostomy is viable. Abdomen is softer than preoperative yesterday. Minimal out through AGGIE drain. A: Surgically stable P: I will discontinue the patient's NG tube. She may have clear liquids as tolerated. She will be transferred to the floor. We will mobilize her and work with her on colostomy care over the next 24-48 hr. The Du catheter will remain until tomorrow morning. She is to be encourage with her incentive spirometer. She also needs to ambulate
[2019-10-05] MEDS ORDERED: MINERAL OIL 30 ML UCUP FT ONE (14:00)
--- NOTE | 2019-10-05 16:59 | PN ---
Date of Progress Note: 10/05/2019 Subjective: Patient is status post surgery today with colostomy. Patient had colon mass, status pos t removal. Physical Examination: Vital Signs: Blood pressure 115/62, pulse of 62, afebrile. Patient had good urine output of 700. Chest: Clear to auscultation. Heart: S1, S2. Regular. Abdomen: Colostomy. Extremities: No edema. Laboratory Data: WBC 14.9, H and H 11/33.1, and platelets 161. Sodium 142, potassium 4.7, bicarb 27 , BUN 25, creatinine down to 1, GFR up to 52, calcium 7.9, phosphorus 3.2, magnesium 2.1. PTH 109. TSH is 0.4. Urinalysis, P-C ratio 0.1. Assessment And Plan: 1.Acute kidney injury secondary to prerenal superimposed with MORRIS inhibitor, complicated with hypoka lemia. No hyperkalemia with alkalosis. No acidosis. Obstructive uropathy has been ruled out with C T finding. Patient recovered very well after hydration. Kidney function close to normalize. I am g oing to go ahead and arrange to switch IV fluid to PPN as the patient is going to be n.p.o. for the n ext couple of days giving fresh surgery currently. 2.Hypokalemia, resolved. 3.Hypomagnesemia, resolved. 4.Alkalosis secondary to contraction alkalosis on recovery. Continue hydration. 5.Secondary hyperparathyroidism. No need for vitamin D. Currently, calcium on normal side. PTH un acceptable range. We will monitor. 6.Colon mass, status post colostomy, small bowel obstruction. We will follow up with Surgery as I mentioned we will switch the patient to PPN and we will follow up. EMILY Voice ID: [id number] Report ID: [id number]
[2019-10-05] MEDS: AA 4.25%/D10W/ELECTROLYTES 2,000 ML, Lipids 20% 250 ML with MULTIVITAMINS INJ 10 ML IV SCH ×3 (17:13)
[2019-10-05] MEDS: ENOXAPARIN 40 MG/0.4 ML SQ SCH (17:18)
[2019-10-05] MEDS ORDERED: GLUCAGON 1 MG/VIAL IM PRN (18:38)
[2019-10-05] MEDS ORDERED: D50W 25 GM/50 ML SYRINGE/VIAL IV PRN (18:38)
[2019-10-05] MEDS ORDERED: LANO/MINERAL OIL/PETRO 3.5 GM EACH EYE SCH (21:00)
[2019-10-06] MEDS: HYDROMORPHONE HCL 1 MG/ML INJ IV PRN ×5 (00:46→18:24)
[2019-10-06] MEDS: ONDANSETRON 4 MG/2 ML VIAL IV PRN ×5 (00:46→17:03)
[2019-10-06] MEDS: METRONIDAZOLE 500mg IVPB 500 MG/100 ML BAG IV SCH ×4 (00:46→17:02)
[2019-10-06] MEDS: METOPROLOL TARTRATE 5 MG/5 ML INJ IV SCH ×4 (00:47→17:02)
[2019-10-06 05:35] LABS: Potassium 4.3 mmol/L (3.5-5.1)
[2019-10-06] MEDS: INSULIN -REGULAR HUMAN 50 UNIT/0.5 ML ML SQ SCH ×4 (06:00→18:00)
[2019-10-06] MEDS: Levofloxacin 250mg IV 250 MG/50 ML BAG IV SCH (06:00)
[2019-10-06] MEDS: LEVOTHYROXINE SODIUM 100 MCG VIAL IV SCH (12:13)
[2019-10-06] MEDS: FLUTICASONE 50MCG NASAL SPRAY NAS SCH ×2 (12:14→22:15)
--- NOTE | 2019-10-06 13:41 | P.PN ---
Subjective Date of Service: 10/06/19 Primary Care Provider: Dr. May Chief Complaint: Abdominal pain; intractable nausea and vomiting; sigmoid colon mass Subjective: Other (Patient continues to do well.) Physical Examination - Vital Signs Temperature: 99.1 F Blood Pressure: 156/69 Pulse: 86 Respirations: 18 Pulse Ox (%): 95 - Physical Exam General: Alert, In no apparent distress, Oriented x3, Cooperative HEENT: Atraumatic Neck: Supple Respiratory: Clear to auscultation bilaterally, Normal air movement Cardiovascular: Normal pulses, Regular rate/rhythm Gastrointestinal: Normal bowel sounds, Other (Postsurgical changes in place. Colostomy bag in place.) Integumentary: No warmth, No cyanosis Neurological: Normal speech, Normal strength at 5/5 x4 extr, Normal tone, Normal affect - Studies Medications List Reviewed: Yes Assessment & Plan Discharge Plan: Home Plan to discharge in: 72 Hours Physician Review Additional Text: Impression: Nausea, vomiting and abdominal pain secondary to large bowel obstruction complicated with 5 x 4 cm sigmoid mass status post sigmoid resection and colostomy postop day 2 Hypertension, uncontrolled Acute renal injury likely chronic disease Hypothyroidism Chronic seasonal allergies Post operative anemia Plan: Nausea, vomiting and abdominal pain secondary to large bowel obstruction complicated with 5 x 4 cm sigmoid mass status post sigmoid resection and colostomy postop day 2: Patient currently on clear liquid diet. NG tube removed yesterday. Patient doing well post operatively. Encourage incentive spirometer. Encourage ambulation. Continue IV fluids and antibiotic therapy. Anticipate discharge likely within 3-5 days pending clinical improvement. I will turn the service over to Dr. Ortiz tomorrow. I will go over the plan of care with her. Hypertension, uncontrolled: Overall stable. Will provide medication IV. Will transition to oral medication once able to take oral intake well. Acute renal injury likely chronic disease: Will discontinued IV fluids. Await Nephrology to make changes. Hypothyroidism: Will continue with medication IV. Will transition to oral medication once patient taking good oral intake. Chronic seasonal allergies: Provide medication. Encourage incentive spirometer. Postoperative anemia: Will continue to monitor closely. Time Spent Managing Pts Care (In Minutes): 55
--- NOTE | 2019-10-06 14:03 | RAD REPORT ---
EXAM DESCRIPTION: Abdomen Pelvis Wo Contrast ADDENDUM #1 THIS REPORT CONTAINS FINDINGS THAT MAY BE CRITICAL TO PATIENT CARE: The findings were verbally discussed via telephone conference with Dr. Montanez by Dr. Sumanth Castillo on 10/04/2019 1:31 AM [facility] .The results were acknowledged and understood. Electronically signed by: Lora Castillo MD 10/04/2019 1:31 AM [facility] End of Addendum EXAM DESCRIPTION: CT Abdomen and Pelvis Without Intravenous Contrast CLINICAL HISTORY: The patient is 63 years old and is Female; ABD PAIN TECHNIQUE: Axial computed tomography images of the abdomen and pelvis without intravenous contrast. Sagittal and coronal reformatted images were created and reviewed. This CT exam was performed usi ng one or more of the following dose reduction techniques: automated exposure control, adjustment o f the mA and/or kV according to patient size, and/or use of iterative reconstruction technique. COMPARISON: No relevant prior studies available. FINDINGS: LUNG BASES: Unremarkable. No mass. No consolidation. ABDOMEN: LIVER: Homogeneous without focal mass. GALLBLADDER AND BILE DUCTS: The gallbladder is physiologically distended. No calcified gallstone s are seen. The pancreas is atrophic. PANCREAS: Unremarkable. No ductal dilation. SPLEEN: Unremarkable. ADRENALS: Unremarkable. No mass. KIDNEYS AND URETERS: No obstructing stones. No hydronephrosis. No perinephric fluid. STOMACH AND BOWEL: The stomach is minimally distended with food contents. The small bowel is rel atively normal in caliber. A large amount of stool is present throughout majority the colon. A few sc attered colonic diverticula are present. There is masslike soft tissue density/narrowing at the level of the sigmoid colon measuring 5.7 x 4.4 cm. PELVIS: APPENDIX: The appendix is normal in caliber without surrounding inflammation. BLADDER: The bladder is not well distended. REPRODUCTIVE: Calcified uterine fibroid is present. ABDOMEN and PELVIS: INTRAPERITONEAL SPACE: Unremarkable. No free air. No significant fluid collection. BONES/JOINTS: There are degenerative changes of the bones. SOFT TISSUES: The soft tissues are normal. VASCULATURE: Atherosclerosis of the vasculature is present. No abdominal aortic aneurysm. LYMPH NODES: Unremarkable. No enlarged lymph nodes. IMPRESSION: Large amount of stool throughout majority the colon with focal area of masslike thickeni ng involving the sigmoid colon. Findings are concerning for obstructive mass/malignancy. Further eval uation is warranted. Electronically signed by: Lora Castillo MD 10/04/2019 1:28 AM [facility] ADDENDUM #1 THIS REPORT CONTAINS FINDINGS THAT MAY BE CRITICAL TO PATIENT CARE: The findings were verbally discussed via telephone conference with Dr. Montanez by Dr. Sumanth Castillo on 10/04/2019 1:31 AM [facility] .The results were acknowledged and understood. Electronically signed by: Lora Castillo MD 10/04/2019 1:31 AM [facility] ADDENDUM #2 THIS REPORT CONTAINS FINDINGS THAT MAY BE CRITICAL TO PATIENT CARE: The findings were verbally discussed via telephone conference with REGLA Montanez by Dr. Sumanth Castillo on 10/04 1:37 AM [facility] .The results were acknowledged and understood. Electronically signed by: Lora Castillo MD 10/04/2019 1:38 AM [facility] End of Addendum ADDENDUM #1 THIS REPORT CONTAINS FINDINGS THAT MAY BE CRITICAL TO PATIENT CARE: The findings were verbally discussed via telephone conference with Dr. Montanez by Dr. Sumanth Castillo on 10/04/2019 1:31 AM [facility] .The results were acknowledged and understood. Electronically signed by: Lora Castillo MD 10/04/2019 1:31 AM [facility] End of Addendum EXAM DESCRIPTION: CT Abdomen and Pelvis Without Intravenous Contrast CLINICAL HISTORY: The patient is 63 years old and is Female; ABD PAIN TECHNIQUE: Axial computed tomography images of the abdomen and pelvis without intravenous contrast. Sagittal and coronal reformatted images were created and reviewed. This CT exam was performed usi ng one or more of the following dose reduction techniques: automated exposure control, adjustment o f the mA and/or kV according to patient size, and/or use of iterative reconstruction technique. COMPARISON: No relevant prior studies available. FINDINGS: LUNG BASES: Unremarkable. No mass. No consolidation. ABDOMEN: LIVER: Homogeneous without focal mass. GALLBLADDER AND BILE DUCTS: The gallbladder is physiologically distended. No calcified gallstone s are seen. The pancreas is atrophic. PANCREAS: Unremarkable. No ductal dilation. SPLEEN: Unremarkable. ADRENALS: Unremarkable. No mass. KIDNEYS AND URETERS: No obstructing stones. No hydronephrosis. No perinephric fluid. STOMACH AND BOWEL: The stomach is minimally distended with food contents. The small bowel is rel atively normal in caliber. A large amount of stool is present throughout majority the colon. A few sc attered colonic diverticula are present. There is masslike soft tissue density/narrowing at the level of the sigmoid colon measuring 5.7 x 4.4 cm. PELVIS: APPENDIX: The appendix is normal in caliber without surrounding inflammation. BLADDER: The bladder is not well distended. REPRODUCTIVE: Calcified uterine fibroid is present. ABDOMEN and PELVIS: INTRAPERITONEAL SPACE: Unremarkable. No free air. No significant fluid collection. BONES/JOINTS: There are degenerative changes of the bones. SOFT TISSUES: The soft tissues are normal. VASCULATURE: Atherosclerosis of the vasculature is present. No abdominal aortic aneurysm. LYMPH NODES: Unremarkable. No enlarged lymph nodes. IMPRESSION: Large amount of stool throughout majority the colon with focal area of masslike thickeni ng involving the sigmoid colon. Findings are concerning for obstructive mass/malignancy. Further eval uation is warranted. Electronically signed by: Lora Castillo MD 10/04/2019 1:28 AM [facility] Due to temporary technical issues with the PACS/Fluency reporting system, reports are being signed by the in house radiologist as a courtesy to ensure prompt reporting. The interpreting radiologist is f ully responsible for the content of the report.
[2019-10-06] MEDS: ENOXAPARIN 40 MG/0.4 ML SQ SCH (17:01)
[2019-10-06] MEDS: AA 4.25%/D10W/ELECTROLYTES 2,000 ML, Lipids 20% 250 ML with MULTIVITAMINS INJ 10 ML IV SCH ×3 (18:23)
--- NOTE | 2019-10-06 18:52 | P.PN ---
Date of Service: 10/06/19 S: Patient feels well, just tired. No specific complaints. Pain medicine appears to be adequate. O: Vital signs remain stable, incisions clean, ostomy viable A: Surgically stable P: Continue current therapy, anticipate removing Du catheter tomorrow, discontinuing the Tarik-Desai drain, and ambulating patient. Patient has a friend who owns a skilled nursing and she is interested in perhaps going there for a short rehab and colostomy teaching.
[2019-10-06] MEDS: POLYVINYL ALCOHOL 1.4% 15 ML EACH EYE SCH (22:15)
[2019-10-07] MEDS: METRONIDAZOLE 500mg IVPB 500 MG/100 ML BAG IV SCH ×4 (00:18→17:05)
[2019-10-07] MEDS: METOPROLOL TARTRATE 5 MG/5 ML INJ IV SCH ×4 (00:18→17:04)
[2019-10-07] MEDS: HYDROMORPHONE HCL 1 MG/ML INJ IV PRN ×4 (00:19→21:07)
[2019-10-07] MEDS: ONDANSETRON 4 MG/2 ML VIAL IV PRN ×5 (00:19→21:07)
--- NOTE | 2019-10-07 01:53 | PN ---
Date of Progress Note: 10/06/2019 Chief Complaint: Acute kidney injury secondary to prerenal azotemia, superimposed with MORRIS inhibitor. Complicated with hypokalemia. No acidosis present. Obstructive uropathy was ruled out on CT scan findings. CT scan was done without contrast. Patient underwent colostomy. She had a colon mass and underwent a colon mass removal. Review of Systems: Denies new complaints. Denies PND, orthopnea. Physical Examination: Lungs: Clear to auscultation bilaterally. Heart: S1, S2. Abdomen: Soft, benign. Extremities: No edema. Laboratory Data: Bicarbonate 27, sodium 142, potassium 4.7, BUN 25, creatinine 1.0, phosphorus 3.2, magnesium 2.1. Impression And Plan: 1. Acute on chronic kidney injury with prerenal azotemia. Continue IV hydration. Monitor electrolytes. Avoid nephrotoxic medication. BUN is 22, creatinine 0.8. There is no evidence of metabolic acidosis. Potassium level improved from 3.7 to 4.3. Monitor electrolytes. 2. Hypertension. Blood pressure controlled. Continue current treatment. KARMA/IMANI Voice ID: [id number] Report ID: [id number] [id number]
[2019-10-07] MEDS: INSULIN -REGULAR HUMAN 50 UNIT/0.5 ML ML SQ SCH ×4 (05:56→18:00)
[2019-10-07 06:02] LABS: Absolute Lymphocytes (CBC) 1.6 K/uL (0.7-4.9); Basophils % 0.9 % (0-1.3); Hematocrit 28.5 % (36.0-45.0); Lymphocytes % 15.9 % (15.3-44.8); MPV 11.2 fL (7.6-11.3); RBC Red Blood Cell Count 3.02 M/uL (3.86-4.86)
[2019-10-07] MEDS: LEVOTHYROXINE SODIUM 100 MCG VIAL IV SCH (06:02)
[2019-10-07] MEDS: Levofloxacin 250mg IV 250 MG/50 ML BAG IV SCH (06:02)
[2019-10-07 06:11] LABS: Magnesium 2.2 mg/dL (1.8-2.4); Potassium 4.1 mmol/L (3.5-5.1)
[2019-10-07] MEDS: FLUTICASONE 50MCG NASAL SPRAY NAS SCH ×2 (08:19→21:06)
--- NOTE | 2019-10-07 15:45 | P.PN ---
Subjective Date of Service: 10/07/19 Primary Care Provider: Dr. May Chief Complaint: Abdominal pain; intractable nausea and vomiting; sigmoid colon mass Patient seen and examined at bedside with RN. Chart reviewed. Case discussed with consultants. Patient continues to have nausea vomiting at this time. No other complaints to offer. Educated extensively regarding need to mobilize here in the hospital Review of Systems 10-point ROS is otherwise unremarkable Physical Examination - Vital Signs Temperature: 98.9 F Blood Pressure: 135/85 Pulse: 85 Respirations: 18 Pulse Ox (%): 92 - Physical Exam General: Alert, Cache[place] Neck: Supple, JVD not distended Respiratory: Normal air movement, Expiratory wheezes, Inspiratory wheezes Cardiovascular: Regular rate/rhythm, Normal S1 S2 Gastrointestinal: Normal bowel sounds, No tenderness Musculoskeletal: No tenderness Integumentary: No rashes Neurological: Normal speech, Normal tone, Normal affect Lymphatics: No axilla or inguinal lymphadenopathy - Studies Medications List Reviewed: Yes Assessment And Plan - Plan Assessment and plan Large bowel obstruction -most likely secondary to 5 x4 cm sigmoid mass -now status post sigmoid resection and colostomy POD 3 -currently patient is on clear liquid diet. -Not able to tolerate well. Continues to have nausea vomiting however controlled the Zofran -NG tube removed yesterday. If patient continues to have worsening of her nausea vomiting will consider getting a KUB -encourage incentive spirometer and ambulation at this time -will continue with IV fluids and antibiotic therapy here in the hospital -general surgery has been consulted. Recommendations noted Hypertension, uncontrolled: -Overall stable. Will provide medication IV. Will transition to oral medication once able to take oral intake well. Acute renal injury likely chronic disease: -improving today. -will continue monitor patient closely -nephrology has been consulted Hypothyroidism: -Will continue with medication IV. -Will transition to oral medication once patient taking good oral intake. Chronic seasonal allergies: -Provide medication. Encourage incentive spirometer. Postoperative anemia: -Will continue to monitor closely. Disposition: Pending clinical improvement at this time Discharge Plan: Home Plan to discharge in: Greater than 2 days - Code Status/Comfort Care Code Status Assessed: Yes Critical Care: No
--- NOTE | 2019-10-07 17:04 | P.PN ---
Date of Service: 10/07/19 S: Patient having a so so day. Just tired, fat up, not much of an appetite. Rather frustrated. O: Incisions are clean, colostomy is working A: Surgically stable P: Encourage p.o. diet, continue with colostomy care.
[2019-10-07] MEDS: ENOXAPARIN 40 MG/0.4 ML SQ SCH (17:05)
--- NOTE | 2019-10-07 18:38 | PN ---
Date of Progress Note: 10/07/2019 Subjective: Patient was admitted with acute kidney injury secondary to prerenal, secondary to dehydr ation, secondary to GI loss with significant hypokalemia. It was superimposed with MORRIS inhibitor. P atcornelius found to have a colon mass, status post resection today. Physical Examination: Vital Signs: Blood pressure 135/85, pulse of 85, afebrile. Patient had good urine output. Chest: Clear to auscultation. Heart: S1, S2. Regular. Abdomen: Colostomy. Extremities: No edema. Laboratory Data: WBC 10, H and H 9.6/28.5, platelet 129. Sodium 139, potassium 4.1, bicarb 30, BUN 20, creatinine 0.7, calcium 8, magnesium 2.2. Current Medications: The patient on include: 1.Levaquin. 2.Flagyl 500 t.i.d. 3.Clonidine. 4.Metoprolol. 5.Tylenol. Assessment And Plan: 1.Acute kidney injury secondary to prerenal, superimposed with the MORRIS inhibitor, recovered, resolve d. I am going to discontinue IV fluids, discontinue TPN. We will follow up. 2.Colitis. I will increase Levaquin to 500 as kidney function completely recovered. 3.Hypertension, control optimal. We will continue current treatment. 4.Colitis, as above. 5.Colon mass. Follow up with surgery. EMILY Voice ID: [id number] Report ID: [id number]
[2019-10-07] MEDS ORDERED: PNEUMOCOCCAL VACCINE 0.5 ML IMVAC ONE (21:00)
[2019-10-07] MEDS: POLYVINYL ALCOHOL 1.4% 15 ML EACH EYE SCH (21:06)
[2019-10-08] MEDS: METOPROLOL TARTRATE 5 MG/5 ML INJ IV SCH ×3 (00:49→12:00)
[2019-10-08] MEDS: METRONIDAZOLE 500mg IVPB 500 MG/100 ML BAG IV SCH ×6 (00:49→23:27)
[2019-10-08] MEDS ORDERED: Nicardipine in Saline, Iso-Osm 20 MG/200 ML IV.SOLN. IV PRN (02:36)
[2019-10-08 02:37] LABS: Troponin I < 0.02 ng/mL (0.0-0.045)
[2019-10-08] MEDS ORDERED: DILTIAZEM INJ 125 MG in NA CHLORIDE 0.9% 100 ML IVPB PRN (02:42)
[2019-10-08] MEDS ORDERED: dilTIAZem HCL 25 MG/5 ML VIAL IV ONE (02:46)
[2019-10-08] MEDS ORDERED: NA CHLORIDE 0.9% 100 ML ONE (02:46)
[2019-10-08] MEDS: ONDANSETRON 4 MG/2 ML VIAL IV PRN ×5 (04:29→23:27)
[2019-10-08 05:04] LABS: Absolute Lymphocytes (CBC) 1.5 K/uL (0.7-4.9); Basophils % 0.7 % (0-1.3); Hematocrit 31.9 % (36.0-45.0); Lymphocytes % 13.1 % (15.3-44.8); MPV 11.6 fL (7.6-11.3); RBC Red Blood Cell Count 3.38 M/uL (3.86-4.86)
[2019-10-08 05:18] LABS: Potassium 3.8 mmol/L (3.5-5.1)
[2019-10-08] MEDS: LEVOTHYROXINE SODIUM 100 MCG VIAL IV SCH (05:54)
[2019-10-08] MEDS: INSULIN -REGULAR HUMAN 50 UNIT/0.5 ML ML SQ SCH ×3 (05:55→12:00)
[2019-10-08] MEDS ORDERED: Levofloxacin500mg IV 500 MG/100 ML BAG IV SCH (06:00)
[2019-10-08] MEDS: FLUTICASONE 50MCG NASAL SPRAY NAS SCH ×2 (09:00→20:24)
[2019-10-08] MEDS: levoFLOXacin 500 MG TAB PO SCH (09:54)
--- NOTE | 2019-10-08 12:05 | EKG ---
Test Date: 2019-10-08 Test Time: 01:49:45 Medical Geneticist: CRISTIAN MEASUREMENT RESULTS: Intervals: Rate: 149 CT: QRSD: 76 QT: 286 QTc: 450 [place]: P: CT: QRS: 57 T: 43 INTERPRETIVE STATEMENTS: Atrial fibrillation with rapid ventricular response ST depression, consider subendocardial injury or digitalis effect Abnormal ECG Compared to ECG 05/21/2016 23:08:26 ST (T wave) deviation now present Sinus rhythm no longer present Electronically Signed On 10-08-19 12:03:29 RADIOLOGIC TECH by Dax Esqueda
[2019-10-08] MEDS: HYDROMORPHONE HCL 1 MG/ML INJ IV PRN ×3 (12:34→23:27)
[2019-10-08] MEDS ORDERED: SODIUM CHLORIDE 0.9% 10ML INJ IV PRN (14:04)
--- NOTE | 2019-10-08 14:22 | PN ---
Date of Progress Note: 10/08/2019 Subjective: Patient had atrial fibrillation with RVR yesterday, transferred to the ICU, placed on Ca rdizem drip. Currently back to sinus. Physical Examination: Vital Signs: Blood pressure 121/83, pulse of 76. The patient had good urine output. Chest: Clear to auscultation. Heart: S1, S2. Regular. Abdomen: Soft, nontender. Extremities: No edema. Laboratory Data: WBC 11.5, H and H of 10.6/31.9, platelets 160. Sodium 138, potassium 3.8, bicarb 2 7, BUN 19, creatinine 0.7, calcium 8.1, magnesium of 2. Current Medications: The patient on Cardizem drip, Levaquin 500 daily, metronidazole 500 t.i.d., Ministerio enox, clonidine 0.1 patch, metoprolol, levothyroxine. Assessment And Plan: 1.Acute kidney injury secondary to prerenal/contrast-induced nephropathy, recovered, resolved. 2.Hypertension with the presence of the atrial fibrillation. I am going to start the patient on met oprolol. We will decrease clonidine. 3.Atrial fibrillation with rapid ventricular response, recovered, resolved. As I mentioned above, w e will start the patient on metoprolol for rate control. Will follow up with the primary. 4.Small bowel obstruction, status post surgery, recovered. EMILY Voice ID: [id number] Report ID: [id number]
[2019-10-08] MEDS: PANTOPRAZOLE 40 MG INJ IVP SCH (14:26)
--- NOTE | 2019-10-08 14:41 | P.PN ---
Date of Service: 10/08/19 S: The patient was transferred to the ICU after having a rind of SVT. She is on a Cardizem drip. However she feels okay. O: Mental out through AGGIE drain. Colostomy looks viable. A: Surgically the patient is stable P: Continue current therapy, diet may be advanced as tolerated
--- NOTE | 2019-10-08 14:55 | P.PN ---
Subjective Date of Service: 10/08/19 Primary Care Provider: Dr. May Chief Complaint: Abdominal pain; intractable nausea and vomiting; sigmoid colon mass Patient seen and examined at bedside with RN. Chart reviewed. Case discussed with consultants. Patient overnight had atrial fibrillation with RVR. Was started on Cardizem drip and was transferred to the ICU. This morning patient is back to normal sinus rhythm. Currently on Cardizem drip getting titrated off. Was switched to p.o. metoprolol. Denies having any nausea today. Did have an episode of vomiting this morning. Review of Systems 10-point ROS is otherwise unremarkable Physical Examination - Vital Signs Temperature: 98.6 F Blood Pressure: 112/63 Pulse: 68 Respirations: 17 Pulse Ox (%): 95 - Physical Exam General: Alert, In no apparent distress HEENT: Atraumatic, PERRLA, EOMI Neck: Supple, JVD not distended Respiratory: Clear to auscultation bilaterally, Normal air movement Cardiovascular: Regular rate/rhythm, Normal S1 S2 Gastrointestinal: Normal bowel sounds, No tenderness Musculoskeletal: No tenderness Integumentary: No rashes Neurological: Normal speech, Normal tone, Normal affect Lymphatics: No axilla or inguinal lymphadenopathy - Studies Medications List Reviewed: Yes Assessment And Plan - Plan Assessment and plan Large bowel obstruction -most likely secondary to 5x4 cm sigmoid mass -now status post sigmoid resection and colostomy POD 4 -currently patient is on clear liquid diet. -Not able to tolerate well. Continues to have nausea vomiting however controlled the Zofran -NG tube removed. If patient continues to have worsening of her nausea vomiting will consider getting a KUB -encourage incentive spirometer and ambulation at this time -will continue with IV fluids and antibiotic therapy here in the hospital -general surgery has been consulted. Recommendations noted Atrial fibrillation -most likely secondary to electrolyte abnormality -currently on Cardizem drip. Will wean off as tolerated -will get echocardiogram done here in the hospital. -also on Lovenox 40 mg at this time Hypertension, uncontrolled: -Overall stable. Will provide medication IV. Will transition to oral medication once able to take oral intake well. Acute renal injury likely chronic disease: -improving today. -will continue monitor patient closely -nephrology has been consulted Hypothyroidism: -Will continue with medication IV. -Will transition to oral medication once patient taking good oral intake. Chronic seasonal allergies: -Provide medication. Encourage incentive spirometer. Postoperative anemia: -Will continue to monitor closely. Disposition: Pending clinical improvement at this time Discharge Plan: Other Plan to discharge in: Greater than 2 days - Code Status/Comfort Care Code Status Assessed: Yes Critical Care: No
--- NOTE | 2019-10-08 15:36 | RAD REPORT ---
EXAM DESCRIPTION: RAD - Abdomen 1 View (KUB) - 10/08/2019 3:31 pm CLINICAL HISTORY: s/p abdominal sx nausea/vomitting Pain COMPARISON: <Comparisons> FINDINGS: Moderate stool is seen in the colon. Non-organized distention of bowel loops is present santoyo ggesting adynamic ileus. Surgical drain and midline conrad are noted.
[2019-10-08] MEDS: METOPROLOL TAR 25 MG TAB PO SCH (17:32)
[2019-10-08] MEDS: ENOXAPARIN 40 MG/0.4 ML SQ SCH (17:33)
[2019-10-08] MEDS: cloNIDine HCL 0.1 MG TAB PO SCH (20:24)
[2019-10-08] MEDS: POLYVINYL ALCOHOL 1.4% 15 ML EACH EYE SCH (20:24)
[2019-10-09 04:51] LABS: Absolute Lymphocytes (CBC) 1.2 K/uL (0.7-4.9); Basophils % 0.8 % (0-1.3); Hematocrit 30.8 % (36.0-45.0); Lymphocytes % 13.2 % (15.3-44.8); MPV 11.3 fL (7.6-11.3); RBC Red Blood Cell Count 3.33 M/uL (3.86-4.86)
[2019-10-09 05:06] LABS: Magnesium 2.1 mg/dL (1.8-2.4); Potassium 3.7 mmol/L (3.5-5.1)
[2019-10-09] MEDS: METRONIDAZOLE 500mg IVPB 500 MG/100 ML BAG IV SCH ×4 (05:16→23:40)
[2019-10-09] MEDS: LEVOTHYROXINE SODIUM 100 MCG VIAL IV SCH (05:45)
[2019-10-09] MEDS: METOPROLOL TAR 25 MG TAB PO SCH (05:45)
[2019-10-09] MEDS: ONDANSETRON 4 MG/2 ML VIAL IV PRN ×4 (05:48→19:51)
[2019-10-09] MEDS: HYDROMORPHONE HCL 1 MG/ML INJ IV PRN ×4 (05:48→19:51)
[2019-10-09] MEDS: levoFLOXacin 500 MG TAB PO SCH (08:00)
[2019-10-09] MEDS: PANTOPRAZOLE 40 MG INJ IVP SCH (08:00)
[2019-10-09] MEDS: cloNIDine HCL 0.1 MG TAB PO SCH ×2 (08:00→19:52)
[2019-10-09] MEDS: FLUTICASONE 50MCG NASAL SPRAY NAS SCH ×2 (08:01→19:51)
--- NOTE | 2019-10-09 11:22 | CON ---
Identification: 63-year-old woman. History Of Present Illness: Ms. Clayton has been in the hospital for almost a week. She had a bow el obstruction. There was a sigmoid mass, nonmalignant, that was obstructing. She had an extensive surgery. She has a colostomy now, and while recovering, she is having trouble with ileus, trouble wi th keeping foods down, trouble with nausea and vomiting after pain medicines. Went into atrial fibri llation. She was on a Cardizem drip. She is off that now and presently she is getting metoprolol an d staying in sinus rhythm. She does not have a previous history of AFib, but we are concerned she ma y have had AFib. She had a right hemispheric stroke a couple of years ago. No cause for the stroke was seen, so a so-called cryptogenic stroke. The patient smokes but has almost managed to quit, of c ourse has not had any cigarettes for about 6 days. She has had palpitations and they went away when her physician started her on levothyroxine. Outpatient Medications: Lisinopril 20 b.i.d., levothyroxine 25 mcg daily. Physical Examination: General: She is 5 feet 4 inches, 154 pounds. Alert, oriented, pleasant, not in distress. Lungs: Clear. Heart: Shows a regular rate and rhythm. Abdomen: Soft. Extremities: Normal. No cyanosis, clubbing, or edema. Distal pulses are palpable. Plan: I think the patient should have a repeat EKG and rather than give her metoprolol, we will swit ch her to Betapace to have a better chance of maintaining sinus rhythm. We can continue to give her enoxaparin now in that if she has any more AFib, we will increase the dose of enoxaparin. MAGUI Voice ID: [id number] Report ID: [id number]
[2019-10-09] MEDS ORDERED: POTASSIUM 25 MEQ EFFERV TAB PO ONE (11:56)
--- NOTE | 2019-10-09 11:56 | P.PN ---
Subjective Date of Service: 10/09/19 Primary Care Provider: Dr. May Chief Complaint: Abdominal pain; intractable nausea and vomiting; sigmoid colon mass Subjective: Improving, Doing well Physical Examination - Vital Signs Temperature: 98.6 F Blood Pressure: 131/79 Pulse: 60 Respirations: 12 Pulse Ox (%): 96 - Physical Exam General: Alert, In no apparent distress, Oriented x3, Cooperative HEENT: Atraumatic Neck: Supple Respiratory: Clear to auscultation bilaterally, Normal air movement Cardiovascular: Normal pulses, Regular rate/rhythm Gastrointestinal: Hypoactive, Non-distended, No tenderness (No significant tenderness.), Other (Colostomy in place. Postsurgical changes noted.) Integumentary: No erythema, No warmth, No cyanosis Neurological: Normal speech, Normal strength at 5/5 x4 extr, Normal tone, Normal affect - Studies Medications List Reviewed: Yes Assessment & Plan Discharge Plan: Home Plan to discharge in: Greater than 2 days Physician Review Additional Text: Impression: Nausea, vomiting and abdominal pain secondary to large bowel obstruction complicated with 5 x 4 cm sigmoid mass status post sigmoid resection and colostomy postop day 2 related to diverticulitis per pathology Atrial fibrillation Hypertension, uncontrolled Acute renal injury likely chronic disease Hypothyroidism Chronic seasonal allergies Post operative anemia History of CVA Plan: Nausea, vomiting and abdominal pain secondary to large bowel obstruction complicated with 5 x 4 cm sigmoid mass status post sigmoid resection and colostomy postop day 2 related to diverticulitis per pathology: Patient has done well. Continue clear liquid diet. Patient was transferred to ICU the other day due to atrial fibrillation. Patient now in sinus rhythm. Continue to monitor closely. Encourage incentive spirometer. Continue physical therapy. Will discuss with surgery. Pathology shows no malignancy. Will transfer patient to the floor. Anticipate discharge in the next 3-5 days. Atrial fibrillation: Cardiology has evaluated patient. Patient with history of CVA. Cardiology has discontinued metoprolol and added Betapace. Lovenox adjusted. Hypertension, uncontrolled: Overall stable. Will provide medication IV. Will transition to oral medication once able to take oral intake well. Acute renal injury likely chronic disease: Will discuss with nephrology. Hypothyroidism: Continue with medication. Chronic seasonal allergies: Provide medication. Encourage incentive spirometer. Postoperative anemia: Will continue to monitor closely. History of CVA: Continue as recommended above. Time Spent Managing Pts Care (In Minutes): 55
--- NOTE | 2019-10-09 12:43 | PN ---
Date of Progress Note: 10/09/2019 Subjective: Patient is doing well. Atrial fibrillation has been controlled. Physical Examination: Vital Signs: When I saw the patient, blood pressure 131/79, pulse of 60. Chest: Clear to auscultation. Heart: S1, S2 regular. Abdomen: Soft. Mild tenderness. Colostomy. Extremities: No edema. Laboratory Data: H and H 10.6/30.8. Sodium 139, potassium 3.7, bicarb 28, BUN 21, creatinine 0.7, calcium 8.2, magnesium 2.1. Current Medications: Current medications the patient on include Levaquin, Flagyl, Lovenox, clonidine 0.1 b.i.d., sotalol 40 b.i.d., Zofran. Assessment And Plan: 1. Acute kidney injury secondary to prerenal superimposed with MORRIS inhibitor, recovered, resolved. 2. hypo K will continue supplement. 3. Hypertension with recent acute kidney injury. Keep holding MORRIS inhibitor. Continue beta yaritza as the patient has atrial fibrillation. We will continue to taper slowly the clonidine. Hopefully, we can discontinue. 4. Colitis. Continue current antibiotic. Follow up with primary. NICOLA/IMANI Voice ID: [id number] Report ID: [id number] LENKA
[2019-10-09] MEDS: ENOXAPARIN 40 MG/0.4 ML SQ SCH (17:00)
[2019-10-09] MEDS: SOTALOL HCL 80 MG TAB PO SCH (18:00)
[2019-10-09] MEDS: POLYVINYL ALCOHOL 1.4% 15 ML EACH EYE SCH (19:51)
--- NOTE | 2019-10-09 22:56 | EKG ---
Test Date: 2019-10-08 Test Time: 12:10:32 Wool Dyer: LAMAR MEASUREMENT RESULTS: Intervals: Rate: 74 [place]: 144 QRSD: 70 QT: 388 QTc: 430 [place]: P: 26 [place]: 144 QRS: 58 T: 60 INTERPRETIVE STATEMENTS: Sinus rhythm Normal ECG Compared to ECG 10/08/2019 01:49:45 Atrial fibrillation no longer present ST (T wave) deviation no longer present Electronically Signed On 10-09-19 22:55:39 DIET CLERK by Andrzej Delaney
[2019-10-10] MEDS: ONDANSETRON 4 MG/2 ML VIAL IV PRN ×5 (00:08→18:22)
[2019-10-10] MEDS: HYDROMORPHONE HCL 1 MG/ML INJ IV PRN ×5 (00:09→18:23)
[2019-10-10] MEDS: SOTALOL HCL 80 MG TAB PO SCH ×2 (05:11→17:00)
[2019-10-10] MEDS: LEVOTHYROXINE SODIUM 100 MCG VIAL IV SCH (05:12)
[2019-10-10] MEDS: METRONIDAZOLE 500mg IVPB 500 MG/100 ML BAG IV SCH ×3 (05:12→17:00)
[2019-10-10] MEDS: levoFLOXacin 500 MG TAB PO SCH (07:35)
[2019-10-10] MEDS: cloNIDine HCL 0.1 MG TAB PO SCH ×2 (07:35→20:51)
[2019-10-10] MEDS: PANTOPRAZOLE 40 MG INJ IVP SCH (07:36)
[2019-10-10] MEDS: FLUTICASONE 50MCG NASAL SPRAY NAS SCH ×2 (07:37→20:52)
[2019-10-10] MEDS: ALPRAZOLAM 0.25 MG TABLET PO PRN ×2 (07:55→17:01)
--- NOTE | 2019-10-10 11:08 | P.PN ---
Subjective Date of Service: 10/10/19 Primary Care Provider: Dr. May Chief Complaint: Abdominal pain; intractable nausea and vomiting; sigmoid colon mass Subjective: Improving, Doing well Physical Examination - Vital Signs Temperature: 97.4 F Blood Pressure: 140/77 Pulse: 60 Respirations: 16 Pulse Ox (%): 98 - Physical Exam General: Alert, In no apparent distress, Oriented x3, Cooperative HEENT: Atraumatic Neck: Supple Respiratory: Clear to auscultation bilaterally, Normal air movement Cardiovascular: Normal pulses, Regular rate/rhythm Gastrointestinal: Other (Postsurgical changes noted. Colostomy in place.) Musculoskeletal: No erythema, No tenderness, No warmth Integumentary: No erythema, No warmth, No cyanosis Neurological: Normal speech, Normal strength at 5/5 x4 extr, Normal tone, Normal affect - Studies Medications List Reviewed: Yes Assessment & Plan Discharge Plan: Home Plan to discharge in: 72 Hours Physician Review Additional Text: Impression: Nausea, vomiting and abdominal pain secondary to large bowel obstruction complicated with 5 x 4 cm sigmoid mass status post sigmoid resection and colostomy postop day 3 related to diverticulitis per pathology Atrial fibrillation Hypertension, uncontrolled Acute renal injury likely chronic disease Hypothyroidism Chronic seasonal allergies Post operative anemia History of CVA Plan: Nausea, vomiting and abdominal pain secondary to large bowel obstruction complicated with 5 x 4 cm sigmoid mass status post sigmoid resection and colostomy postop day 3 related to diverticulitis per pathology: Patient has done well. Continue clear liquid diet and advance as tolerated. Encourage ambulation. Patient remains in sinus rhythm. Will discuss with surgery about plan of care. Patient will need to be taught colostomy care. Pathology shows no malignancy. Encourage incentive spirometer. I will turn the service over to the hospitalist team tomorrow. I will go over the plan of care with them. Anticipate possible discharge in the next 2-3 days with clinical improvement. Atrial fibrillation: Patient remains in sinus rhythm on Betapace. Patient on DVT prophylaxis only. Patient will likely require chronic anti coagulation therapy at discharge. Will discuss further. Case discussed with cardiology. Hypertension, uncontrolled: Overall stable. Will provide medication IV. Will transition to oral medication once able to take oral intake well. Acute renal injury likely chronic disease: Will discuss with nephrology. Hypothyroidism: Continue with medication. Chronic seasonal allergies: Provide medication. Encourage incentive spirometer. Postoperative anemia: Will continue to monitor closely. History of CVA: Continue as recommended above. Time Spent Managing Pts Care (In Minutes): 55
--- NOTE | 2019-10-10 12:13 | P.PN ---
Date of Service: 10/10/19 S: Patient is back on the floor. Says she feels somewhat better today. Nausea appears to be improved O: Incisions are clean, minimal out through AGGIE drain. A: Surgically stable P: Advanced diet, anticipate discharge soon.
--- NOTE | 2019-10-10 13:23 | PN ---
She is remaining in sinus rhythm. BP elevated slightly. Her heart rate is good. Looking at her LISET DS-VASc score, she would be a candidate for chronic anticoagulation. She has 3 points on the CHADS-V ASc survey, making it a clear indication that anticoagulation will reduce her risk of stroke. We marion l discuss that at the time of discharge. For now, keeping her on the dose of Lovenox to prevent deep vein thrombosis is appropriate. YVETTE/IMANI Voice ID: [id number] Report ID: [id number]
[2019-10-10] MEDS: KCL 20 MEQ/100 mL IVPB 20 MEQ/100 ML BAG IV ONE ×2 (15:00→15:43)
[2019-10-10] MEDS ORDERED: POTASSIUM 25 MEQ EFFERV TAB PO ONE (16:04)
[2019-10-10] MEDS: ENOXAPARIN 40 MG/0.4 ML SQ SCH (16:20)
[2019-10-10 16:38] LABS: Potassium 3.5 mmol/L (3.5-5.1)
--- NOTE | 2019-10-10 18:48 | PN ---
Date of Progress Note: 10/10/2019 History: The patient admitted with colitis, abdominal mass, status post colostomy. Patient had acute kidney injury secondary to prerenal and MORRIS inhibitor, recovered. Physical Examination: Vital Signs: When I saw the patient, blood pressure 140/77, pulse of 69. Chest: Clear to auscultation. Heart: S1, S2. Regular. Abdomen: Soft, nontender. Extremities: No edema. Laboratory Data: WBC 8.9, H and H 10.6/30.8, platelets 174. Sodium 139, potassium 3.7, bicarb 28, BUN 21, creatinine 0.7, calcium 8.2, magnesium 2.1. Current Medications: Include metronidazole, Levaquin, Lovenox, clonidine 0.1, Tylenol, Zofran, hydromorphone. Assessment And Plan: 1. Acute kidney injury secondary to nonsteroidal, prerenal, angiotensin- converting enzyme inhibitor, recovered, resolved. 2. Hypokalemia. I going to go ahead and supplement. 3. Hypertension, controlled, not optimal. I am going to continue current medication. Follow up with Cardiology. 4. Atrial fibrillation as by Cardiology. NICOLA/IMANI Voice ID: [id number] Report ID: [id number] MTDJesus
[2019-10-10] MEDS: POLYVINYL ALCOHOL 1.4% 15 ML EACH EYE SCH (20:52)
[2019-10-10] MEDS: ENSURE PUDDING 4 OZ CUP PO SCH (20:54)
[2019-10-10] MEDS ORDERED: ENSURE PUDDING 4 OZ CUP PO SCH (21:00)
[2019-10-11] MEDS: METRONIDAZOLE 500mg IVPB 500 MG/100 ML BAG IV SCH ×2 (00:42→05:52)
[2019-10-11] MEDS: HYDROMORPHONE HCL 1 MG/ML INJ IV PRN (02:45)
[2019-10-11] MEDS: ONDANSETRON 4 MG/2 ML VIAL IV PRN (02:45)
[2019-10-11] MEDS: SOTALOL HCL 80 MG TAB PO SCH ×2 (05:53→16:31)
[2019-10-11 06:32] LABS: Potassium 3.7 mmol/L (3.5-5.1)
[2019-10-11] MEDS: levoFLOXacin 500 MG TAB PO SCH (08:33)
[2019-10-11] MEDS: cloNIDine HCL 0.1 MG TAB PO SCH ×2 (08:33→20:10)
[2019-10-11] MEDS: PANTOPRAZOLE 40 MG INJ IVP SCH (08:34)
[2019-10-11] MEDS: FLUTICASONE 50MCG NASAL SPRAY NAS SCH ×2 (08:35→20:06)
[2019-10-11] MEDS: ENSURE PUDDING 4 OZ CUP PO SCH ×2 (08:38→20:10)
[2019-10-11] MEDS: LEVOTHYROXINE SODIUM 100 MCG VIAL IV SCH (09:00)
--- NOTE | 2019-10-11 10:46 | P.PN ---
Subjective Date of Service: 10/11/19 Primary Care Provider: Dr. May Chief Complaint: Status post sigmoid resection with colostomy Subjective: Improving (Denies any complaints patient is not tolerating a liquid diet) Review of Systems General: Weakness Physical Examination - Vital Signs Temperature: 97.7 F Blood Pressure: 171/80 Pulse: 60 Respirations: 16 Pulse Ox (%): 98 - Physical Exam General: Alert, In no apparent distress, Oriented x3 Respiratory: Clear to auscultation bilaterally Cardiovascular: No edema, Regular rate/rhythm Gastrointestinal: Normal bowel sounds, Soft and benign - Studies Medications List Reviewed: Yes Assessment & Plan - Problems (Diagnosis) (1) Colonic mass Current Visit: Yes Status: Acute Plan: Patient is status post colon resection with a colostomy is doing well tolerating a diet still requiring pain medications on a p.r.n. basis no evidence of sepsis will plan to Dc antibiotics patient had E coli in the urine white count is now normal Physician Review Additional Text: I
[2019-10-11] MEDS ORDERED: POTASSIUM 25 MEQ EFFERV TAB PO ONE (10:59)
[2019-10-11] MEDS ORDERED: KCL 20 MEQ/100 mL IVPB 20 MEQ/100 ML BAG IV SCH (11:00)
[2019-10-11] MEDS: HYDROCODONE/APAP 10/325 TAB PO PRN ×2 (12:26→22:09)
--- NOTE | 2019-10-11 13:48 | PN ---
Date of Progress Note: 10/11/2019 Subjective: Patient doing well. Patient was admitted with colitis, found to have abdominal mass, un derwent colostomy. Patient had acute kidney injury secondary to prerenal and superimposed with MORRIS i nhibitor. Patient developed AFib with RVR. Physical Examination: Vital Signs: Blood pressure 170/80, pulse of 60, afebrile. The patient had good urine output. Chest: Clear to auscultation. Heart: S1, S2. Regular. Abdomen: Soft. Colostomy on the right side. Extremities: No edema. Laboratory Data: WBC 8.9, H and H 10.6/30.8, platelets 174. Sodium 139, potassium 3.7, bicarb 26, B UN 16, creatinine 0.7, calcium 7.8. Current Medications: Include: 1.Tylenol. 2.Sotalol. 3.Clonidine 0.1 b.i.d. 4.Alprazolam. 5.Ensure. 6.Zofran. 7.Hydromorphone. 8.KCl. Assessment And Plan: 1.Acute kidney injury secondary to prerenal, recovered, resolved. Given the persistent hypokalemia, I will challenge the patient with ftzbyhtvrap-lwvkkhalpj-hljahz inhibitor and we will follow up the patient. 2.Hypokalemia. We will supplement. Patient is going to be started on zwhiqdbjchn-nfmkceahwg-tvjtok inhibitor. 3.Alkalosis, resolved. 4.Colitis. Abdominal mass. Follow up with Surgery and Primary. NICOLA/IMANI Voice ID: [id number] Report ID: [id number]
[2019-10-11] MEDS: ENOXAPARIN 40 MG/0.4 ML SQ SCH (16:30)
[2019-10-11] MEDS: POLYVINYL ALCOHOL 1.4% 15 ML EACH EYE SCH (20:06)
[2019-10-11] MEDS: lisinopriL 10 MG TAB PO SCH (20:09)
[2019-10-12] MEDS: SOTALOL HCL 80 MG TAB PO SCH ×2 (05:32→17:00)
[2019-10-12] MEDS: LEVOTHYROXINE SODIUM 100 MCG VIAL IV SCH (05:33)
[2019-10-12] MEDS: PANTOPRAZOLE 40 MG INJ IVP SCH (08:01)
[2019-10-12] MEDS: FLUTICASONE 50MCG NASAL SPRAY NAS SCH ×2 (08:01→20:22)
[2019-10-12] MEDS: cloNIDine HCL 0.1 MG TAB PO SCH ×2 (08:01→20:22)
[2019-10-12] MEDS: ENSURE PUDDING 4 OZ CUP PO SCH ×2 (08:02→20:00)
--- NOTE | 2019-10-12 10:17 | P.PN ---
Subjective Date of Service: 10/12/19 Primary Care Provider: Dr. May Chief Complaint: Status post sigmoid resection with colostomy Subjective: Improving (He is doing really well her pain has decreased taking pain pills oral eating and drinking) Review of Systems Unremarkable General: Weakness Physical Examination - Vital Signs Temperature: 98.4 F Blood Pressure: 157/80 Pulse: 56 Respirations: 16 Pulse Ox (%): 96 - Physical Exam General: Alert, In no apparent distress, Oriented x3 Neck: Supple Respiratory: Clear to auscultation bilaterally Cardiovascular: No edema, Regular rate/rhythm Gastrointestinal: Normal bowel sounds, Soft and benign - Studies Medications List Reviewed: Yes Assessment & Plan - Problems (Diagnosis) (1) Colonic mass Current Visit: Yes Status: Acute Plan: Patient is doing much better she is eating drinking tolerating a diet minimal pain vital signs stable oxygenation normal delayed possible discharge antibiotics discontinued colostomy functioning home when okay with Dr. Lynne Discharge Plan: Home Physician Review Additional Text: I
[2019-10-12] MEDS ORDERED: POTASSIUM 25 MEQ EFFERV TAB PO ONE (10:51)
--- NOTE | 2019-10-12 14:11 | ECHO ---
HEIGHT: 5 ft 4 in WEIGHT: 145 lb 1.6 oz DATE OF STUDY: 10/08/[address]: Sultana Ortiz MD 2-DIMENSIONAL: YES M.MODE: YES DOPPLER: YES COLOR FLOW: YES TDS: YES PORTABLE: DEFINITY: BUBBLE STUDY: DIAGNOSIS: ATRIAL FIBRILLATION WITH RAPID VENTRICULAR RESPONSE CARDIAC HISTORY: CATHERIZATION: NO SURGERY: NO PROSTHETIC VALVE: NO PACEMAKER: NO MEASUREMENTS (cm) DIASTOLIC (NORMALS) SYSTOLIC (NORMALS) IVSd 0.8 (0.6-1.2) LA Diam 3.3 (1.9-4.0) LVEF 51% LVIDd 3.7 (3.5-5.7) LVIDs 2.8 (2.0-3.5) %FS 25% LVPWd 0.9 (0.6-1.2) Ao Diam 2.6 (2.0-3.7) 2 DIMENSIONAL ASSESSMENT: RIGHT ATRIUM: NORMAL LEFT ATRIUM: NORMAL RIGHT VENTRICLE: NORMAL LEFT VENTRICLE: NORMAL TRICUSPID VALVE: NORMAL MITRAL VALVE: NORMAL PULMONIC VALVE: NORMAL AORTIC VALVE: NORMAL PERICARDIAL EFFUSION: NONE AORTIC ROOT: NORMAL LEFT VENTRICULAR WALL MOTION: NORMAL DOPPLER/COLOR FLOW: TRACE TRICUSPID REGURGITATION. NORMAL RIGHT VENTRICULAR SYSTOLIC PRESSURE. COMMENTS: NORMAL 2-DIMENSIONAL ECHOCARDIOGRAM. TRACE TRICUSPID REGURGITATION. TECHNOLOGIST: DANIEL CURIEL
--- NOTE | 2019-10-12 16:54 | PN ---
Date of Progress Note: 10/12/2019 Subjective: Patient was admitted with colitis, found to have abdominal mass, status post colostomy. Patient had AFib with RVR, rate controlled right now. Physical Examination: Vital Signs: Blood pressure 157/80, pulse of 56. Patient had good urine output. Chest: Clear to auscultation. Heart: S1, S2. Regular. Abdomen: Soft. Colostomy. Extremities: No edema. Laboratory Data: H and H 10.6/30.8. Sodium 139, potassium 3.7 bicarb 26, BUN 16, creatinine 0.7, ca lcium 7.8. Assessment And Plan: 1.Acute kidney injury secondary to prerenal/hbvjnprijdw-mhpdxwadlk-lskmya inhibitor, recovered, reso lved. 2.Hypertension, controlled, not optimal. We just add MORRIS inhibitor yesterday. We will follow up re sponse. 3.Hypokalemia. We will supplement and we will follow up after adding MORRIS inhibitor. 4.Colitis with abdominal mass. Follow up with Surgery. EMILY Voice ID: [id number] Report ID: [id number]
[2019-10-12] MEDS: ENOXAPARIN 40 MG/0.4 ML SQ SCH (16:59)
[2019-10-12] MEDS: HYDROCODONE/APAP 10/325 TAB PO PRN (20:08)
[2019-10-12] MEDS: lisinopriL 10 MG TAB PO SCH (20:22)
[2019-10-12] MEDS: POLYVINYL ALCOHOL 1.4% 15 ML EACH EYE SCH (20:22)
[2019-10-13] MEDS: LEVOTHYROXINE SODIUM 100 MCG VIAL IV SCH (06:00)
[2019-10-13] MEDS: SOTALOL HCL 80 MG TAB PO SCH (06:00)
[2019-10-13] MEDS: cloNIDine HCL 0.1 MG TAB PO SCH (09:00)
[2019-10-13] MEDS: PANTOPRAZOLE 40 MG INJ IVP SCH (09:00)
[2019-10-13] MEDS: ENSURE PUDDING 4 OZ CUP PO SCH (09:00)
[2019-10-13] MEDS: FLUTICASONE 50MCG NASAL SPRAY NAS SCH (09:02)
[2019-10-13 14:00] VITALS: O2SAT 96
--- NOTE | 2019-10-13 14:08 | P.PN ---
Date of Service: 10/13/19 S: Patient has no complaints, comfortable changing her colostomy. Incision is clean. O: Vital signs are stable, colostomy working A: Surgically stable P: Discharge home see me on . Any questions or problems, go to the emergency room, or contact me.
[2019-10-13 18:13] VITALS: BP 146/76; TEMP 98.1
--- NOTE | 2019-10-14 15:53 | PN ---
Date of Progress Note: 10/13/2019 Chief Complaint: Acute kidney injury. History Of Present Illness: Patient developed severe renal hypoperfusion. Patient was found to have abdominal mass. She underwent colostomy. She has history of atrial fibrillation with rapid ventricular response. She developed acute kidney injury secondary to prerenal azotemia with acute tubular necrosis and nonoliguric urine output. Patient is stabilized with IV fluids. Renal function is at baseline. BUN is 16, creatinine 0.7. Review of Systems: Denies fever, chills. Physical Examination: Lungs: Diminished breath sounds at bases. Heart: S1, S2. Abdomen: Soft, benign. Extremities: No edema. Laboratory Data: Potassium 3.7, bicarbonate 26, BUN 16, creatinine 0.7, sodium 139, calcium 7.8. Impression And Plan: 1. Acute kidney injury secondary to prerenal azotemia complicated by jfwsrmnguty-hwxrlkbwlx-gtpzaq inhibitor effect, leading to acute tubular necrosis with nonoliguric urine function. Electrolytes stable. Renal function improved to baseline. 2. Hypokalemia. Patient received supplementation. Monitor potassium level. 3. Colitis. Abdominal mass. Follow up with surgical team. 4. Hypertension. Continue blood pressure medication. Patient is resume on MORRIS inhibitor. Patient has stable renal function. Patient needs to follow up with Nephrology. I spent 36 min including 25 min to coordinate care plan. KARMA/IMANI Voice ID: [id number] Report ID: [id number] MTDD
== END 2019-10-13 17:00 | disposition home or self-care (01) | DRG 330 ==
LOC: ER 23:58 → 2ND 10-04 02:59 → 3RD-ICU 10-04 17:35 → 4TH 10-05 15:35 → 3RD-ICU 10-08 02:15 → 4TH 10-09 12:45
PROVIDERS: ADMIT Hospitalist; ATTEND Family Medicine
PROC: 0D1E0Z4 Bypass Large Intestine to Cutaneous, Open Approach (ICD-10-PCS; 2019-10-04)
PROC: 0DTN0ZZ Resection of Sigmoid Colon, Open Approach (ICD-10-PCS; principal; 2019-10-04 13:30)
DX: K56.609 Unspecified intestinal obstruction, unspecified as to partial versus complete obstruction (principal); N17.9 Acute kidney failure, unspecified; E87.3 Alkalosis; N25.81 Secondary hyperparathyroidism of renal origin; K52.9 Noninfective gastroenteritis and colitis, unspecified; E87.6 Hypokalemia; I10 Essential (primary) hypertension; E03.9 Hypothyroidism, unspecified; E83.42 Hypomagnesemia; D64.89 Other specified anemias; I48.91 Unspecified atrial fibrillation; J30.2 Other seasonal allergic rhinitis; Z86.73 Personal history of transient ischemic attack (TIA), and cerebral infarction without residual deficits
CPT/HCPCS: 36415; 74018; 74176; 80048; 80053; 80076; 81003; 81015; 82378; 82550; 82570; 82947; 83690; 83735; 83970; 84100; 84156; 84436; 84443; 84478; 84480; 84484; 84550; 85025; 85610; 85730; 87086; 87088; 88307; 93005; 93306; 96361; 96365; 96367; 96375; 97110; 97116; 97161; 97530; 99285; C9113; J0360; J0744; J1170; J1200; J1650; J2250; J2405; J2550; J2704; J2710; J3010; J7030; J7120; Q9967

== ENCOUNTER 2019-10-17 18:02 | Emergency (ER) | payer OTHER ==
--- OUTSIDE RECORDS SUMMARY | 2019-10-17 18:05 | XMS REPORT ---
:1955 [facility] [address] [place] [id number] Care Team Providers Name Role Phone Unavailable Unavailable Unavailable Problems This patient has no known problems. Allergies, Adverse Reactions, Alerts This patient has no known allergies or adverse reactions. Medications This patient has no known medications.
--- NOTE | 2019-10-17 20:02 | ER ---
Nurse's Notes [facility] Name: Claribel Clayton Age: 63 yrs Sex: Female : 1955 Arrival Date: 10/17/2019 Time: 18:05 Bed 27 Private MD: Mendez May H Diagnosis: Colostomy status;Colostomy complication, unspecified;Urinary tract infection, site not specified Presentation: 10/17 18:13 Presenting complaint: Patient states: New colostomy is gurgling and feels like I need dm5 to have a bowel movement but nothing happens and I also feel like I need to urinate. Called Dr. Houston's office and he called in a RX for Bactrim but pt has not been able to get over to pick it up. started today. Transition of care: patient was not received from another setting of care. Onset of symptoms was October 17, 2019. Risk Assessment: Do you want to hurt yourself or someone else? Patient reports no desire to harm self or others. Initial Sepsis Screen: Does the patient meet any 2 criteria? HR > 90 bpm. No. Patient's initial sepsis screen is negative. Does the patient have a suspected source of infection? Yes: Other: new colostomy. Care prior to arrival: None. 18:13 Method Of Arrival: Ambulatory dm5 18:13 Acuity: MARIANNE 3 dm5 Triage Assessment: 18:23 General: Appears in no apparent distress. comfortable, Behavior is cooperative, bp appropriate for age, anxious. Pain: Denies pain. EENT: No deficits noted. Neuro: No deficits noted. Cardiovascular: No deficits noted. Respiratory: No deficits noted. GI: Colostomy site is reddened. is intact. : No signs and/or symptoms were reported regarding the genitourinary system. Derm: No deficits noted. Musculoskeletal: No deficits noted. Historical: - Allergies: 18:17 Codeine; dm5 18:17 PENICILLINS; dm5 - Home Meds: 18:17 levothyroxine 25 mcg tab 1 tab once daily [Active]; lisinopril 20 mg Oral tab 1 tab dm5 twice a day [Active]; 18:27 Eliquis 5 mg oral tab 1 tab 2 times per day [Active]; clonidine HCl 0.1 mg Oral tab 1 bp tab 2 times per day [Active]; sotalol 80 mg Oral tab 0.5 tab 2 times per day [Active]; - PMHx: 18:27 CVA; Hypertension; Hypothyroidism; bp - PSHx: 18:27 Colostomy; bp - Immunization history:: Adult Immunizations up to date. - Social history:: Smoking status: unknown. - Ebola Screening: : No symptoms or risks identified at this time. - Family history:: not pertinent. Screenin:27 Abuse screen: Denies threats or abuse. Denies injuries from another. Nutritional bp screening: No deficits noted. Tuberculosis screening: No symptoms or risk factors identified. Fall Risk None identified. Assessment: 18:27 General: SEE TRIAGE NOTE. bp 20:16 Reassessment: Patient appears in no apparent distress at this time. Patient and/or ss family updated on plan of care and expected duration. Pain level reassessed. Patient is alert, oriented x 3, equal unlabored respirations, skin warm/dry/pink. Pt states she does not want CT and or blood work at this time. Dr. Bellamy notified and states okay to discharge home to follow up with PCP at this time. Pt verbalizes understanding importance of coming back to ED with worsening of symptoms Patient denies pain at this time. Vital Signs: 18:17 BP 131 / 93; Pulse 104; Resp 18; Temp 98.2; Pulse Ox 100% on R/A; Weight 63.5 kg; dm5 Height 5 ft. 4 in. (162.56 cm); Pain 0/10; 18:17 Body Mass Index 24.03 (63.50 kg, 162.56 cm) dm5 ED Course: 18:05 Patient arrived in ED. mr 18:06 Mendez May DO is Private Physician. mr 18:16 Triage completed. dm5 18:17 Arm band placed on right wrist. Patient placed in an exam room. dm5 18:22 Modesto Davis, RN is Primary Nurse. sg 18:22 Primary Nurse role handed off by Modesto Davis, JONA bp 18:22 Braxton Brooks, JONA is Primary Nurse. bp 18:27 Patient has correct armband on for positive identification. Placed in gown. Bed in low bp position. Call light in reach. Side rails up X2. 19:25 Braulio Bellamy MD is Attending Physician. [facility] 20:01 Boris Houston MD is Referral Physician. [facility] 20:15 No provider procedures requiring assistance completed. Patient did not have IV access ss during this emergency room visit. Administered Medications: 20:01 CANCELLED (Duplicate Order): Cipro 400 mg 200 ml IVPB once over 60 mins emigdio 20:14 Drug: Cipro 500 mg Route: PO; ss 20:15 Follow up: Response: Medication administered at discharge. 20:15 Not Given (Patient Refused; Dr. Bellamy notified): NS 0.9% 1000 ml IV at 1 bolus Per protocol; 1000 mL bolus Outcome: 20:02 Discharge ordered by . [facility] 20:15 Discharged to home ambulatory. 20:15 Condition: good 20:15 Discharge instructions given to patient, Instructed on discharge instructions, follow up and referral plans. medication usage, Demonstrated understanding of instructions, follow-up care, medications, Prescriptions given X 1. 20:17 Patient left the ED. Signatures: Digna Rowe, RN RN dm5 Modesto Davis, RN Braulio Longoria MD MD cha Rivera, Mary mr Smirch, Shelby, RN RN ss Peltier, Brian, RN RN bp
--- NOTE | 2019-10-17 20:03 | EDPHYS ---
Physician Documentation [facility] Name: Claribel Clayton Age: 63 yrs Sex: Female : 1955 Arrival Date: 10/17/2019 Time: 18:05 Bed 27 Private MD: Mendez May H ED Physician Braulio Bellamy HPI: 10/17 19:53 This 63 yrs old Female presents to ER via Ambulatory with complaints of emigdio Urinary Problem, Colostomy bag problem. 19:53 The patient presents with abdominal pain. Onset: The symptoms/episode began/occurred 2 emigdio day(s) ago. The symptoms do not radiate. Associated signs and symptoms: none. The symptoms are described as constant, crampy. Severity of pain: At its worst the pain was mild in the emergency department the pain is unchanged. The patient has not experienced similar symptoms in the past, colostomy last month 10/06. Historical: - Allergies: 18:17 Codeine; dm5 18:17 PENICILLINS; dm5 - Home Meds: 18:17 levothyroxine 25 mcg tab 1 tab once daily [Active]; lisinopril 20 mg Oral tab 1 tab dm5 twice a day [Active]; 18:27 Eliquis 5 mg oral tab 1 tab 2 times per day [Active]; clonidine HCl 0.1 mg Oral tab 1 bp tab 2 times per day [Active]; sotalol 80 mg Oral tab 0.5 tab 2 times per day [Active]; - PMHx: 18:27 CVA; Hypertension; Hypothyroidism; bp - PSHx: 18:27 Colostomy; bp - Immunization history:: Adult Immunizations up to date. - Social history:: Smoking status: unknown. - Ebola Screening: : No symptoms or risks identified at this time. - Family history:: not pertinent. ROS: 19:53 Constitutional: Negative for fever, chills, and weight loss, Eyes: Negative for injury, emigdio pain, redness, and discharge, ENT: Negative for injury, pain, and discharge, Neck: Negative for injury, pain, and swelling, Cardiovascular: Negative for chest pain, palpitations, and edema, Respiratory: Negative for shortness of breath, cough, wheezing, and pleuritic chest pain, Back: Negative for injury and pain, : Negative for injury, bleeding, discharge, and swelling, MS/Extremity: Negative for injury and deformity, Skin: Negative for injury, rash, and discoloration, Neuro: Negative for headache, weakness, numbness, tingling, and seizure, Psych: Negative for depression, anxiety, suicide ideation, homicidal ideation, and hallucinations, Allergy/Immunology: Negative for hives, rash, and allergies, Endocrine: Negative for neck swelling, polydipsia, polyuria, polyphagia, and marked weight changes, Hematologic/Lymphatic: Negative for swollen nodes, abnormal bleeding, and unusual bruising. 19:53 Abdomen/GI: Positive for abdominal cramps, of the left lower quadrant. Exam: 19:53 Constitutional: This is a well developed, well nourished patient who is awake, alert, emigdio and in no acute distress. Head/Face: Normocephalic, atraumatic. Eyes: Pupils equal round and reactive to light, extra-ocular motions intact. Lids and lashes normal. Conjunctiva and sclera are non-icteric and not injected. Cornea within normal limits. Periorbital areas with no swelling, redness, or edema. ENT: Nares patent. No nasal discharge, no septal abnormalities noted. Tympanic membranes are normal and external auditory canals are clear. Oropharynx with no redness, swelling, or masses, exudates, or evidence of obstruction, uvula midline. Mucous membranes moist. Neck: Trachea midline, no thyromegaly or masses palpated, and no cervical lymphadenopathy. Supple, full range of motion without nuchal rigidity, or vertebral point tenderness. No Meningismus. Chest/axilla: Normal chest wall appearance and motion. Nontender with no deformity. No lesions are appreciated. Cardiovascular: Regular rate and rhythm with a normal S1 and S2. No gallops, murmurs, or rubs. Normal PMI, no JVD. No pulse deficits. Respiratory: Lungs have equal breath sounds bilaterally, clear to auscultation and percussion. No rales, rhonchi or wheezes noted. No increased work of breathing, no retractions or nasal flaring. Back: No spinal tenderness. No costovertebral tenderness. Full range of motion. Skin: Warm, dry with normal turgor. Normal color with no rashes, no lesions, and no evidence of cellulitis. MS/ Extremity: Pulses equal, no cyanosis. Neurovascular intact. Full, normal range of motion. Neuro: Awake and alert, GCS 15, oriented to person, place, time, and situation. Cranial nerves II-XII grossly intact. Motor strength 5/5 in all extremities. Sensory grossly intact. Cerebellar exam normal. Normal gait. Psych: Awake, alert, with orientation to person, place and time. Behavior, mood, and affect are within normal limits. 19:53 Abdomen/GI: Inspection: abdomen appears normal, Bowel sounds: hyperactive, Liver: no appreciated palpable abnormalities, Hernia: not appreciated. Vital Signs: 18:17 BP 131 / 93; Pulse 104; Resp 18; Temp 98.2; Pulse Ox 100% on R/A; Weight 63.5 kg; dm5 Height 5 ft. 4 in. (162.56 cm); Pain 0/10; 18:17 Body Mass Index 24.03 (63.50 kg, 162.56 cm) dm5 MDM: 19:25 Patient medically screened. [facility] 19:56 Data reviewed: vital signs, nurses notes, lab test result(s), EKG, radiologic studies, [facility] CT scan. 10/17 19:53 Order name: Urine Culture [facility] 10/17 19:53 Order name: Urine Dipstick-Ancillary (obtain specimen); Complete Time: 20:15 [facility] 10/17 20:05 Order name: Urine Dipstick--Ancillary (enter results) ar5 Administered Medications: 20:01 CANCELLED (Duplicate Order): Cipro 400 mg 200 ml IVPB once over 60 mins [facility] 20:14 Drug: Cipro 500 mg Route: PO; 20:15 Follow up: Response: Medication administered at discharge. 20:15 Not Given (Patient Refused; Dr. Bellamy notified): NS 0.9% 1000 ml IV at 1 bolus Per protocol; 1000 mL bolus Disposition: 10/17/19 20:02 Discharged to Home. Impression: Colostomy status, Colostomy complication, unspecified, Urinary tract infection, site not specified. - Condition is Stable. - Discharge Instructions: Abdominal Pain, Adult, Dysuria, Colostomy Home Guide, Adult, Abdominal Pain, Adult, [id number], Colostomy, Adult, Care After. - Prescriptions for Cipro 250 mg Oral Tablet - take 1 tablet by ORAL route every 12 hours; 14 tablet. - Medication Reconciliation Form, Thank You Letter, Antibiotic Education, Prescription Opioid Use form. - Follow up: Boris Houston; When: 2 - 3 days; Reason: Recheck today's complaints, Continuance of care, Re-evaluation by your physician. - Problem is new. - Symptoms have improved. Signatures: Dispatcher [employer] [facility] Digna Rowe, RN RN dmBraulio Goldman MD MD cha Smirch, Shelby, JONA RN Braxton Green RN RN bp Corrections: (The following items were deleted from the chart) 20:01 19:58 Cipro 400 mg 200 ml IVPB once over 60 mins ordered. [facility] 20:15 19:53 IV Saline Lock ordered. [facility] 20:15 19:53 Labs collected and sent ordered. [facility] 20:15 19:55 Abdomen Pelvis W Con+CT.RAD.BRZ ordered. [facility] 20:17 20:02 10/17/2019 20:02 Discharged to Home. Impression: Colostomy status; Colostomy ss complication, unspecified; Urinary tract infection, site not specified. Condition is Stable. Discharge Instructions: Abdominal Pain, Adult, Colostomy Home Guide, Adult, Abdominal Pain, Adult, [id number], Colostomy, Adult, Care After, Dysuria. Forms are Medication Reconciliation Form, Thank You Letter, Antibiotic Education, Prescription Opioid Use. Follow up: Boris Houston; When: 2 - 3 days; Reason: Recheck today's complaints, Continuance of care, Re-evaluation by your physician. Problem is new. Symptoms have improved. emigdio
[2019-10-17 20:10] LABS: Urine Blood NEGATIVE (NEG); Urine Glucose NEGATIVE (NEG); Urine Protein NEGATIVE (NEG); Urine Specific Gravity 1.015 (1.005-1.030)
[2019-10-17] MEDS ORDERED: CIPROFLOXACIN HCL 500 MG TAB ONE (20:15)
[2019-10-17 21:34] VITALS: BP 131/93; TEMP 98.2; O2SAT 100
== END 2019-10-17 20:17 | disposition home or self-care (01) ==
LOC: ER 18:02
DX: N39.0 Urinary tract infection, site not specified (principal); I10 Essential (primary) hypertension; E03.9 Hypothyroidism, unspecified; Z79.01 Long term (current) use of anticoagulants; Z88.0 Allergy status to penicillin; Z88.5 Allergy status to narcotic agent
CPT/HCPCS: 81003; 87086; 87088; 99283

== ENCOUNTER 2021-09-26 08:40 | Inpatient (IN) | payer OTHER ==
--- NOTE | 2021-09-22 12:32 | RAD REPORT ---
EXAM DESCRIPTION: RAD - Chest Pa And Lat (2 Views) - 09/22/2021 12:24 pm CLINICAL HISTORY: Pre Op COMPARISON: Abdomen 1 View (KUB) dated 10/08/2019; CHEST SINGLE VIEW dated 05/22/2015; CHEST PA AND L AT 2 VIEW dated 10/08/2012; CHEST PA AND LAT 2 VIEW dated 12/19/2010; Abdomen Pelvis Wo Contrast date d 10/04/2019 FINDINGS: Lines: None. Lungs: No evidence of edema or pneumonia. Pleural: No significant pleural effusions or pneumothorax. Cardiac: The heart size is within normal limits. Bones: No acute fractures. Other: IMPRESSION: No acute cardiopulmonary disease.
[2021-09-22 12:38] LABS: Absolute Lymphocytes (CBC) 1.7 K/uL (0.7-4.9); Basophils % 0.9 % (0-1.3); Hematocrit 42.7 % (36.0-45.0); Lymphocytes % 22.2 % (15.3-44.8); MPV 9.6 fL (7.6-11.3); RBC Red Blood Cell Count 4.57 M/uL (3.86-4.86)
[2021-09-22 12:53] LABS: Potassium 4.3 mmol/L (3.5-5.1)
--- NOTE | 2021-09-23 20:39 | EKG ---
Test Date: 2021-09-22 Test Time: 12:15:45 Training And Quality Manager: KJ MEASUREMENT RESULTS: Intervals: Rate: 71 AR: 146 QRSD: 72 QT: 382 QTc: 415 [place]: P: 40 AR: 146 QRS: 75 T: 76 INTERPRETIVE STATEMENTS: Normal sinus rhythm ST abnormality, possible digitalis effect Abnormal ECG Compared to ECG 06/27/2021 13:26:40 Atrial abnormality no longer present ST (T wave) deviation still present Electronically Signed On 09-23-21 20:35:18 [employer]TER [employer]INE by Dax Esqueda
[2021-09-26] MEDS ORDERED: LIDOCAINE 2% MPF 5 ML VIAL ONE (08:56)
[2021-09-26] MEDS ORDERED: propofoL 200 MG/20 ML VIAL IV ONE (08:56)
[2021-09-26] MEDS ORDERED: GLYCOPYRROLATE 0.2 MG/ML SYR ONE (08:56)
[2021-09-26] MEDS ORDERED: MIDAZOLAM HCL 2 MG/2 ML INJ ONE (08:56)
[2021-09-26] MEDS ORDERED: FENTANYL CITR 250 MCG/5 ML ONE (08:57)
[2021-09-26] MEDS ORDERED: ROCURONIUM 50 MG/5 ML VIAL IV ONE ×2 (09:04→09:06)
[2021-09-26] MEDS ORDERED: ONDANSETRON 4 MG/2 ML VIAL ONE ×2 (09:05→14:42)
[2021-09-26] MEDS ORDERED: Ringers Lactate 1,000 ML IV ONE ×3 (09:27→13:03)
[2021-09-26] MEDS ORDERED: CEFOXITIN/NS 1gm 0 GM/0 ML BAG ONE (09:28)
[2021-09-26] MEDS ORDERED: CIPROFLOXACIN 400mg IV 400 MG/200 ML BAG IV ONE (10:07)
[2021-09-26] MEDS ORDERED: METRONIDAZOLE 500mg IVPB 500 MG/100 ML BAG IV ONE (10:10)
[2021-09-26] MEDS ORDERED: EPHEDRINE SULF 50 MG/ML VIAL ONE (10:28)
[2021-09-26] MEDS ORDERED: dexAMETHasone 10 MG/ML VIAL ONE (10:37)
[2021-09-26] MEDS ORDERED: Phenylephrine HCl 10 MG/ML 1 ML VIAL ONE (10:53)
[2021-09-26] MEDS ORDERED: FENTANYL CITR 100 MCG/2 ML ONE (12:52)
--- NOTE | 2021-09-26 14:27 | P.HP ---
Date of Service: 09/26/21 PC: This 65-year-old female presented for elective colostomy takedown. HPC: 2 years ago this patient had severe diverticular disease with a large abscess after having been at home for 7 days with pelvic pain. She presented at that time to our hospital. She was brought to the operating room where she underwent an emergency exploratory laparotomy with colostomy. She was hospitalized but responded well to IV antibiotics. Over the last few months after further discussion she has decided that she wants his colostomy taken down. She has seen by cardiology and was cleared. She is also had a endoscopy that showed no evidence of any tumors or other areas of concern apart from scattered diverticuli. PSHx: Colostomy with Traylor's pouch PMHx: Negative Social Hx: Allergic to penicillin, codeine, and morphine Sys R: No cough, wheeze, shortness of breath. No chest pain or palpitations. No urinary complaints O/E: Awake alert vital signs are stable HEENT: Within normal limits Chest: Air entry equal bilaterally Abd: Abdomen mildly distended, appears to have a small parastomal hernia as well [place]: Intact Data: Colonoscopy has been done, cardiology consult was obtained., Impression: This patient presents for an elective colostomy takedown. Plan: I will taken to the operating room for a colostomy takedown. The risks of this procedure have been discussed. The possibility of bleeding, infection, injury to bowel blood vessels and other structures was outlined. The possible need for an open and/or further surgeries and procedures was discussed. I have explained that we will probably do a laparoscopic approach initially. Once we have clear the midline, and exploratory laparotomy will be done. There is a possibility that she could develop an abscess, have a leak for anastomosis, and end up again with a colostomy. Injury to blood vessels ureters and other surrounding structures was explained. The need for possible surgeries and procedures in the future was outlined. She understands and wants to proceed.
[2021-09-26] MEDS: HYDROMORPHONE HCL 1 MG/ML INJ ONE ×2 (14:47→14:55)
--- NOTE | 2021-09-26 14:50 | P.OP ---
Nutrition Manager: GRISEL MCRAE Preoperative diagnosis: Colostomy and Traylor's pouch Postoperative diagnosis: The same with marked pelvic adhesions Primary procedure: Exploratory laparotomy and colostomy takedown Secondary procedure: Lysis of extensive intra-abdominal adhesions Other procedure(s): Colorectal anastomosis, ileocolic anastomosis Anesthesia: General Estimated blood loss: Less than 50 cc Specimen: Resected ileocecal valve and appendix, distal ileum, donuts from anastomosi Operative Technique: The patient brought the operating room and placed supine on the table. After the induction of adequate general endotracheal anesthesia, the area of the abdomen was prepped with a DuraPrep solution, a Du catheter was inserted, and she was draped in usual aseptic manner. Attention was turned towards the left lateral side of the abdomen. A skin incision was made. This was brought down to the skin and subcutaneous tissue. The Visiport was used to enter the peritoneal cavity and created pneumoperitoneum to approximately 12 mmHg. We were able to visualize the peritoneal cavity. We could see that there was a marked amount of adhesions around the area where the colostomy had been. The midline however was clear. In the pelvis there were some adhesions to the anterior abdominal wall, however we could have a safe entry to the anterior and upper abdominal wall through a midline incision. It was apparent that the pelvis contained a lot of dense adhesions, and this would not be a laparoscopic case. Generous midline incision was made. This brought down the skin and subcutaneous tissue. The fascia was identified in the midline. It was opened for the portion of the upper abdomen. At this point an opening was made into the peritoneal cavity and we elongated our sutures down to just above the pubis. The abdomen was now inspected. There were marked amount of adhesions in the area of our colostomy. 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 The omentum was mobilized off the anterior abdominal wall and from away from our colostomy. Course it is downwards it was found to also be markedly adherent deep into the pelvis. This was around the pelvis and also enveloped the uterus which contains a large fibroid. The omentum was finally mobilized off of the structures and out of the right lower quadrant. We were now able to identify the colon as it emerged from the anterior abdominal wall. A VJ was fired just at the level of the skin. The distal colon was now mobilized up the white line of Toldt, and around the left side at its junction with the transverse colon. Essentially we took down the splenic flexure. Having my realize the colon, we were now able to turn our attention to the true pelvis. Anteriorly we could see the bladder. However behind this the uterus was markedly adherent into a large area of scar tissue that involved distal ileum, the ileocecal valve, the appendix, and a distal portion of the ileum. We gently mobilized this up out of the true pelvis. At 1 [address] we had to place considerable amount of traction to try and this determine the junction between the bowel and the rectal stump. At this point a small tear was identified. We finally were able to mobilize the ileum up out of the true pelvis. We also continue to sweep laterally to the right lower quadrant where we were able to bring up both the ileocecal valve and the appendix. The cecum having been immobilized it became apparent that the best repair for this patient would be to do an ileocolic anastomosis, resecting the ileocecal valve and the appendix as the strictured, ruptured area was approximately 8 inches from the ileocecal valve itself. This was done by prepping the distal ileum with a pursestring, and another #25 anvil. An opening was made into the cecum through which we were able to pass our EEA. An ileocolic anastomosis was now performed. The remaining portion of the distal colon, ileocecal valve, and appendix was resected using a linear stapler. A good anastomosis having been performed, the defect in the mesentery was closed using a running suture of chromic. Attention was now turned towards the true pelvis. At this point I invited Dr. Fenton to come for an intraoperative consult to ensure we had a good staple firing. After he was able to introduce the stapler and up into the true pelvis, the stapling device was opened. The prep penetrated through the seal portion of the rectal stump. We were able to drop the anvil with no tension down on top of it. He was able to close the device, and indicates to me the stable height that I desired. At the present point the instrument was fired. The instrument was withdrawn, and Dr. Fenton was able to confirm for me that I had to again donuts. At this point he was excused and his help was much appreciated. Attention was turned back towards the abdomen. At this point a Tarik-Desai drain was placed down into the true pelvis and brought out through a separate stab wound incision in the left lower quadrant. The nasogastric tube was checked for good position in the stomach. The intestines were now run from the ligament of Treitz down to the ileocecal valve. Having the return sure there approximate intraabdominal position, the omentum was then laid over the intestines. The colostomy plug at the level of the left abdominal wall was now excised using the electrocautery. The bowel was identified in the subcutaneous space, traced down to the abdomen, and fully excised. The peritoneal defect and the fascial defect of the anterior abdominal wall was closed with a running suture of Prolene. The anterior layer layer of the sheet was approximated with interrupted sutures of Prolene as well. At this point the needle sponge instrument count were correct. The midline incision was closed using a running suture of Prolene. Cb were applied to the skin. [place] were also applied to the old colostomy site loosely approximating the skin edges. [place] were also placed over our laparoscopically incision site. At the end of the procedure a pelvic exam was done. There was no evidence of an y pinching or impingement on the vaginal canal. The patient was now transferred to the recovery room in stable condition. Needle sponge instrument count were correct. Specimens as mentioned were sent. 1 Tarik-Desai and a nasogastric tube as well as a Du catheter were placed. Complications: None Drain(s): Nasogastric, Urinary catheter, AGGIE drain Fluids & blood products: less than 50 Transferred to: Recovery Room Condition: Good
[2021-09-26] MEDS ORDERED: KETOROLAC 30 MG/ML INJ ONE (14:59)
--- OUTSIDE RECORDS SUMMARY | 2021-09-26 15:15 | XMS REPORT | Continuity of Care Document ---
:1955 Author Organization [facility] t Address [facility] Maverick Gurrola [address] [place] [id number] Care Team Providers Name Role Phone Marty GARCIA Attending Clinician Unavailable Marty Garcia MD Attending Clinician Only, Test Attending Clinician Unavailable Marty GARCIA Admitting Clinician Unavailable Marty Garcia MD Admitting Clinician Payers Payer Name Policy Type Policy Number Effective Date Expiration Date S ource [place]ICAID [place] [id number] 2020 00:00:00 MEDICARE PART A [id number] 2018 00:00:00 Problems Condition Condition Condition Status Onset Resolution Last Treating Co mments Source Name Details Category Date Date Treatment Clinician Date No known No known Disease Unive rs active active ity of problems problems [facility] Allergies, Adverse Reactions, Alerts Allergy Allergy Status Severity Reaction(s) Onset Inactive Treating Comm ents Source Name Type Date Date Clinician Codeine Propensi Active Nausea 2016-11 Univers ty to and/or 11-14 ity of adverse Vomiting 00:00: [place] reaction 00 Medical s Branch Penicill Propensi Active Rash 2016-11 Univer s in ty to 11-14 ity of adverse 00:00: [place] reaction 00 [facility] s [place] CODEINE DRUG Active N/V 2016-11 Univers INGREDI 11-14 ity of 00:00: [place] 00 Medical [place] PENICILL DRUG Active Rash 2016-11 Univers IN INGREDI 11-14 ity of 00:00: [place] 00 [facility] Social History Social Habit Start Date Stop Date Quantity Comments Source Sex Assigned At [facility] Medical Branch Exposure to Not sure [facility] SARS-CoV-2 (event) Medica l Branch Tobacco use and 2020-08-24 2020-08-24 Never used [facility] exposure 00:00:00 00:00:00 Medical Branch Smoking Status Start Date Stop Date Source Current every day smoker 2020-08-24 00:00:00 Uni versity of [facility] Medications Ordered Filled Start Stop Current Ordering Indication Dosage Frequency Signature Comments Components Source Medication Medication Date Date Medication? Clinician (SIG) Name Name lisinopriL 2019-11 Yes 30mg Take 30 mg U nivers 30 mg 0-15 by mouth ity of tablet 14:52: daily. [address] Levothyroxi 2019-11 Yes Take by Un meliza ne 25 mcg 0-15 mouth. ity of capsule 14:52: [address] azelastine 2019-11 Yes 1[drp] Place 1 Un meliza 0.05 % 0-15 Drop in ity of ophthalmic 14:52: both eyes [place] solution 05 2 (two) Medical times [place] daily. lactated 2019-11 Yes 1000mL at 75 Univer s ringers IV 0-15 mL/hr, ity of infusion 14:45: 1,000 mL[place] 1[place]000 [place] 00 IV Medical Infusion, Branch CONTINUOUS , Starting Skyla 08/26/20 at 0945, Until Discontinu ed, Routine, PACU water for 2019-11 Yes PRN, Univers irrigation 0-15 Starting ity o f irrigation 13:36: Skyla [place] solution 00 08/26/20 Medical at 0836, Branch Until Discontinu ed, Routine, Intra-op simethicone 2019-11 Yes PRN, Univer s (GAS RELIEF 0-15 Starting ity of (SIMETHICON 13:36: Skyla [place] E)) 40 00 08/26/20 Medical mg/0.6 mL at 0836, Branch drops Until Discontinu ed, Routine, Intra-op lactated 2019-11 2020- No 1000mL at 42 Unive rs ringers IV 0-15 10-15 mL/hr, ity of infusion 13:15: 13:21 1,000 mL, [place] as 1,000 mL 00 :00 IV Medical Infusion, Branch ONCE, 1 dose, Skyla 08/26/20 at 0815, Routine, DSU Pre-op lisinopriL 2019-11 Yes 30mg Take 30 mg U nivers 30 mg 0-13 by mouth ity of tablet 19:43: daily. [address] Levothyroxi 2019-11 Yes Take by Un meliza ne 25 mcg 0-13 mouth. ity of capsule 19:43: [place] 58 Medical Branch azelastine 2019-11 Yes 1[drp] Place 1 Un meliza 0.05 % 0-13 Drop in ity of ophthalmic 19:43: both eyes [place] solution 58 2 (two) Medical times Branch daily. sulfamethox Yes [id number] 1{tbl} Take 1 Univers azole-trime 4-13 tablet by ity of thoprim 00:00: mouth [place] 800-160 mg 00 every 12 Medic al per tablet (twelve) Branc h hours. fluconazole Yes [id number] Take one Univers 150 mg 4-13 tablet PO ity of tablet 00:00: today, 00 then one Medical tablet PO Branch in 10 days, at the end of antibiotic treatment. sulfamethox Yes [id number] 1{tbl} Take 1 Univers azole-trime 4-13 tablet by ity of thoprim 00:00: mouth [place] 800-160 mg 00 every 12 Medic al per tablet (twelve) Branc h hours. fluconazole Yes [id number] Take one Univers 150 mg 4-13 tablet PO ity of tablet 00:00: today, 00 then one Medical tablet PO Branch in 10 days, at the end of antibiotic treatment. cloniDINE 2016-11 Yes .1mg Take 1 Univer s 0.1 mg 1-03 tablet by ity of tablet 00:00: mouth 2 [place] 00 (two) Medical times Branch daily. cloniDINE 2016-11 Yes .1mg Take 1 Univer s 0.1 mg 1-03 tablet by ity of tablet 00:00: mouth 2 00 (two) Medical times Branch daily. Vital Signs Vital Name Observation Time Observation Value Comments Source Systolic blood 2020-08-26 14:30:00 119 mm[Hg] Univer sity of pressure [facility] Diastolic blood 2020-08-26 14:30:00 83 mm[Hg] Unive rsity of pressure [facility] Heart rate 2020-08-26 14:30:00 87 /min Universi ty [facility] Respiratory rate 2020-08-26 14:30:00 15 /min Univ ersity [facility] Oxygen saturation in 2020-08-26 14:30:00 95 /min [facility] Arterial blood by [facility] Pulse oximetry Branch Body temperature 2020-08-26 14:15:00 36.17 [facility] 2020-08-26 13:16:00 27.28 kg/m2 [facility] Body weight 2020-08-26 13:16:00 72.122 kg [facility] Body height 2020-08-25 18:23:00 162.6 cm [facility] Procedures Procedure Date / Time Performing Clinician Source Performed COLONOSCOPY (ENDO) 2020-08-26 12:05:21 Mendez May [facility] PATIENT FINANCIAL 2020-08-25 18:42:58 Doctor Unassigned, [facility] POLICY [facility] NO SHOW OR MISSED 2020-08-25 17:55:08 Doctor Unassigned, [facility] APPOINTMENT POLICY [facility] ACKNOWLEDGEMENT CONSENT/REFUSAL FOR 2020-08-25 17:54:49 Doctor Unassdipti, [facility] DIAGNOSIS AND TREATMENT [facility] ASSIGNMENT OF BENEFITS 2020-08-25 17:54:30 Doctor Unassigned, [facility] CONSENT/REFUSAL FOR 2020-08-25 17:54:14 Doctor Unassigned, [facility] DIAGNOSIS AND TREATMENT [facility] ASSIGNMENT OF BENEFITS 2020-08-25 17:54:01 Doctor Unassigned, [facility] DSU PRE-OP 2020-08-20 05:01:00 Doctor Unassdipti, [facility] [place] Encounters Start End Encounter Admission Attending Care Care Encounter Source Date/Time Date/Time Type Type Clinicians Facility Department ID 2021-09-09 Outpatient R [facility] RACHEL [id number] [facility] 22:56:[address] [facility] 2020-08-26 2020-08-26 [facility] [id number] [facility] 08:03:00 09:45:00 Encounter eLidia [id number] itCharmainebury [id number] [place] [facility] [id number] [facility] 071 Branch 2020-08-25 2020-08-25 [id number] Univers 13:15:00 13:15:00 LIDIA Golden [facility] 2020-08-25 2020-08-25 Laboratory Only, Adc Test [facility] [id number] Univers 12:52:17 13:07:17 Only Lidia Garcia [id number] 3.10 ity regan Ariza [id number] [facility] [id number] [place] [address] Branch Results This patient has no known results.
[2021-09-26] MEDS: HYDROMORPHONE HCL 1 MG/ML INJ IV PRN ×2 (16:02→22:42)
[2021-09-26] MEDS: Ringers Lactate 1,000 ML IV SCH ×2 (16:03→20:34)
[2021-09-26] MEDS: METRONIDAZOLE 500mg IVPB 500 MG/100 ML BAG IV SCH (16:04)
[2021-09-26] MEDS: Ciprofloxacin 200mg IV 200 MG/100 ML IV.SOLN. IV SCH (20:34)
[2021-09-26] MEDS: ONDANSETRON 4 MG/2 ML VIAL IV PRN (20:49)
[2021-09-27] MEDS: METRONIDAZOLE 500mg IVPB 500 MG/100 ML BAG IV SCH ×3 (01:26→17:01)
[2021-09-27] MEDS: HYDROMORPHONE HCL 1 MG/ML INJ IV PRN ×5 (02:35→20:36)
[2021-09-27] MEDS: ONDANSETRON 4 MG/2 ML VIAL IV PRN (08:53)
[2021-09-27] MEDS: Ringers Lactate 1,000 ML IV SCH ×2 (08:54→20:28)
[2021-09-27] MEDS: Ciprofloxacin 200mg IV 200 MG/100 ML IV.SOLN. IV SCH ×2 (08:56→20:27)
[2021-09-27] MEDS ORDERED: MINERAL OIL 30 ML UCUP PO ONE (15:07)
[2021-09-27] MEDS: DIAZEPAM 5 MG TABLET PO ONE ×2 (15:09→19:03)
--- NOTE | 2021-09-27 20:19 | P.PN ---
Date of Service: 09/27/21 S: Patient is pain does not appear to be adequately controlled today. Complaining of some sore throat from her NG tube, and has not been able to void with her catheter out. O: Vital signs are stable, adequate urine output while her Du was in. Abdomen is mildly distended. Minimal out through nasogastric tube. A: Surgically stable we will work to get pain under better control and get patient to ambulate. Moderate effort on incentive spirometry. Continue current therapy.
[2021-09-28] MEDS: HYDROMORPHONE HCL 1 MG/ML INJ IV PRN ×3 (00:38→04:50)
[2021-09-28] MEDS: METRONIDAZOLE 500mg IVPB 500 MG/100 ML BAG IV SCH ×3 (01:30→15:34)
[2021-09-28] MEDS: Ringers Lactate 1,000 ML IV SCH ×2 (04:58→15:34)
[2021-09-28] MEDS: Ciprofloxacin 200mg IV 200 MG/100 ML IV.SOLN. IV SCH ×2 (09:04→20:48)
[2021-09-28] MEDS: HYDROCODONE/APAP 7.5/325 MG TAB PO PRN ×3 (10:17→20:46)
--- NOTE | 2021-09-28 15:47 | P.PN ---
Date of Service: 09/28/21 S: Patient doing much better today, saddle nature for quite a bit, was able to get up and walk to the restroom and back. Pain appears to be getting under better control. Has been taking some [place] on a more regular basis. States she can feel her stomach starting to rumble, and may want to try some real food tomorrow. Prefers to leave the Du catheter in place [was unable to void after he had been removed yesterday and it needed to be replaced] O: Vital signs are stable, IV site looks clean adequate intake on incentive spir ometry. Wounds are clean. A: Appears to be progressing status post colostomy takedown with bowel resections PE: Continue current therapy, will try and get patient to eat tomorrow. Will require some nutritional input soon. Patient also has permission to take her own thyroxine medicine should she desire.
[2021-09-28] MEDS: lisinopriL 20 MG TAB PO SCH (20:45)
[2021-09-28] MEDS: ONDANSETRON 4 MG/2 ML VIAL IV PRN (22:24)
[2021-09-29] MEDS: METRONIDAZOLE 500mg IVPB 500 MG/100 ML BAG IV SCH ×3 (00:22→18:29)
[2021-09-29] MEDS: Ringers Lactate 1,000 ML IV SCH ×4 (02:37→21:30)
[2021-09-29] MEDS: HYDROMORPHONE HCL 1 MG/ML INJ IV PRN ×3 (05:00→21:31)
[2021-09-29] MEDS: lisinopriL 20 MG TAB PO SCH ×2 (09:25→21:29)
[2021-09-29] MEDS: Ciprofloxacin 200mg IV 200 MG/100 ML IV.SOLN. IV SCH ×2 (11:07→21:28)
--- NOTE | 2021-09-29 13:53 | P.PN ---
Date of Service: 09/29/21 S: Patient is again sitting up in a chair today. Clinically looks much improved. Is having some dry heaves however. States that her pain is controlled with the medication she is on, however still has a considerable amount of nausea. O: Patient is afebrile, vital signs are stable, BP under good control. Still has a quiet abdomen. No flatus yet. Du catheter was removed and patient is voiding on her own. Incisions are clean. A: Patient appears to have postoperative ileus P: Continue to mobilize patient, encourage incentive spirometry. I will order physical therapy to help her ambulate in the hallway. Anticipate another 24 to 48 hours. We will repeat her labs in the morning.
[2021-09-29] MEDS ORDERED: DIAZEPAM 5 MG TABLET PO PRN (13:54)
[2021-09-29] MEDS: HYDROCODONE/APAP 7.5/325 MG TAB PO PRN (18:28)
[2021-09-29] MEDS: METOPROLOL TARTRATE 5 MG/5 ML INJ IV ONE ×4 (22:23→23:36)
[2021-09-29] MEDS: METOPROLOL TARTRATE 5 MG/5 ML INJ IV STA ×2 (22:36→23:45)
[2021-09-29] MEDS ORDERED: METOPROLOL TARTRATE 5 MG/5 ML INJ IV STA (23:06)
[2021-09-29 23:18] LABS: Albumin 2.3 g/dL (3.4-5.0); Bilirubin Total 0.4 mg/dL (0.2-1.0); Magnesium 2.1 mg/dL (1.8-2.4); Potassium 3.9 mmol/L (3.5-5.1); Thyroid Stimulating Hormone 1.49 uIU/mL (0.360-3.740)
--- NOTE | 2021-09-29 23:33 | P.CNS ---
Date of Consult: 09/29/21 Requesting Physician: Boris Houston Chief Complaint: Colostomy reversal History of Present Illness: 65-year-old female with history of hypothyroidism, hypertension was admitted to hospital by her general surgeon on 09/26/2021 for colostomy reversa l. Patient had colostomy placed a couple years ago after developing severe diverticulitis with abscess. Patient developed postoperative ileus, at some point during the day today patient was noted to be mildly tachycardic, general surgery asked for hospitalist to be consulted for medical management. I was contacted late this evening notified of consult and also that patient was in A. fib RVR with a rate of around 160-170. Patient reports that she has been off of her thyroid medication and blood pressure medication lisinopril since admission, is currently on ice chip diet. Blood pressure stable at this time. I also obtain stat labs including chemistry, magnesium and thyroid panel thyroid panel normal with TSH 1.49 and free T4 1.26 magnesium normal at 2.1 and potassium normal at 3.9. Patient was given metoprolol 5 mg IV. Allergies Penicillins Allergy (Intermediate, Verified 09/26/21 10:21) Hives/Rash codeine [Codeine] Adverse Reaction (Mild, Verified 09/26/21 10:21) Nausea/Vomiting morphine Adverse Reaction (Verified 09/26/21 10:21) HALLUCINATIONS Home Medications: Levothyroxine Sodium 25 mcg PO DAILY 10/04/19 Azelastine HCl 1 gtt EACH EYE BID 07/06/21 Lisinopril [Zestril] 30 mg PO BID 07/06/21 - Past Medical/Surgical History Diabetic: No -: HYPERTENSION -: HYPOTHYROID -: GALLSTONES, NO SURGERY -: COLOSTOMY 2018 -: Colostomy reversal 2020 Psychosocial/ Personal History: Patient lives at home, alone - Family History Mother Medical History: Cancer Father Notes: HEMOCHROMATOSIS - Social History Smoking Status: Former smoker Alcohol use: No CD- Drugs: No Caffeine use: Yes Place of Residence: Home Review of Systems 10-point ROS is otherwise unremarkable General: Weakness Cardiovascular: Palpitations Gastrointestinal: Nausea, Vomiting, Abdominal Pain Physical Examination Temp Pulse Resp BP Pulse Ox 100 F 105 H 18 140/59 L 20 L 09/29/21 20:00 09/29/21 21:29 09/29/21 21:31 09/29/21 21:29 09/29/21 21:31 General: Alert, In no apparent distress, Oriented x3 HEENT: Atraumatic, PERRLA, Mucous membr. moist/pink, EOMI, Sclerae nonicteric Neck: Supple, 2+ carotid pulse no bruit, No LAD, Without JVD or thyroid abnormality Respiratory: Clear to auscultation bilaterally, Normal air movement Cardiovascular: Irregular heart rate/rhythm (A. fib RVR rate 160) Gastrointestinal: Hypoactive, Tenderness (Mild generalized abdominal tenderness) Musculoskeletal: No tenderness Integumentary: No rashes Neurological: Normal speech, Normal tone, Normal affect Lymphatics: No axilla or inguinal lymphadenopathy Laboratory Data (last 24 hrs) 09/29/21 22:44: Magnesium Cancelled 09/29/21 22:42: Sodium 139, Potassium 3.9, BUN 22 H, Creatinine 0.83, Glucose 11 3 H, Magnesium 2.1, Total Bilirubin 0.4, AST 23, ALT 21, Alkaline Phosphatase 72 Conclusions/Impression: Assessment: New onset atrial fibrillation with rapid ventricular response Status post colostomy reversal Hypertension Hypothyroidism Plan: New onset atrial fibrillation with rapid ventricular response: Patient currently in A. fib RVR with rate around 160-170, patient has received now 2 doses of metoprolol 5 mg IV, will continue with third dose as blood pressure tolerates. Patient right may require further intervention with digoxin/possibly amiodarone. Will consider cardioversion if patient becomes unstable. Cardiology will be consulted echocardiogram to be ordered. Patient's [id number] score is 3, shena darling will require anticoagulation is likely from discussed with general surgery as well. Status post colostomy reversal: Stable, patient suspected to develop postoperative ileus as this suspected by general surgery. Continue with plan of care from general surgery Hypertension: Patient on lisinopril daily at home, will hold until patient is tolerating p.o. Provide medication as needed. Hypothyroidism: Patient on levothyroxine 25 mcg daily, thyroid studies normal tonight, will start when patient is tolerating p.o. DVT PPX: Per surgery Code status: Full Critical Care: No Time Spent Managing Pts care (In Minutes): 55
[2021-09-29] MEDS: NA CHLORIDE 0.9% 500 ML IV ONE ×2 (23:35→23:40)
[2021-09-29] MEDS ORDERED: DIGOXIN 0.25 MG/ML AMP IV ONE (23:43)
[2021-09-30] MEDS ORDERED: METOPROLOL TARTRATE 5 MG/5 ML INJ IV STA (00:56)
[2021-09-30] MEDS: METRONIDAZOLE 500mg IVPB 500 MG/100 ML BAG IV SCH ×2 (01:00→08:33)
[2021-09-30] MEDS: ENOXAPARIN 80 MG/0.8 ML SQ SCH ×3 (02:00→20:45)
[2021-09-30] MEDS ORDERED: AMIODARONE HCL 150 MG in D5W 100 ML IV STA (02:19)
[2021-09-30] MEDS ORDERED: AMIODARONE HCL 900 MG in Dextrose 5%-Water 482 ML IV SCH (03:00)
[2021-09-30 06:14] LABS: Absolute Lymphocytes (CBC) 0.8 K/uL (0.7-4.9); Basophils % 0.2 % (0-1.3); Hematocrit 33.2 % (36.0-45.0); Lymphocytes % 6.1 % (15.3-44.8); MPV 9.7 fL (7.6-11.3); RBC Red Blood Cell Count 3.54 M/uL (3.86-4.86)
[2021-09-30 06:23] LABS: Albumin 2.4 g/dL (3.4-5.0); Bilirubin Total 0.4 mg/dL (0.2-1.0); Potassium 3.9 mmol/L (3.5-5.1)
[2021-09-30] MEDS: METOPROLOL TAR 25 MG TAB PO SCH ×2 (08:32→18:37)
[2021-09-30] MEDS: lisinopriL 20 MG TAB PO SCH ×2 (08:32→20:46)
[2021-09-30] MEDS: HYDROMORPHONE HCL 1 MG/ML INJ IV PRN ×3 (08:33→22:57)
[2021-09-30] MEDS: Ciprofloxacin 200mg IV 200 MG/100 ML IV.SOLN. IV SCH (08:34)
[2021-09-30] MEDS: ONDANSETRON 4 MG/2 ML VIAL IV PRN ×2 (08:52→18:44)
[2021-09-30 09:01] LABS: Blood Morphology Comment NOT SEEN (NOT SEEN); Platelet Estimate ADEQ
[2021-09-30] MEDS ORDERED: METOPROLOL TARTRATE 5 MG/5 ML INJ IV ONE (11:41)
--- NOTE | 2021-09-30 13:02 | P.PN ---
Subjective Date of Service: 09/30/21 Chief Complaint: Colostomy reversal Patient was groggy during my examination. She had received IV hydromorphone. Patient stated she had a bowel movement this morning. She denies any abdominal pain. Patient converted to sinus rhythm last night and has remained in sinus rhythm since then. Blood pressure has been elevated. Physical Examination - Vital Signs Temperature: 98.9 F Blood Pressure: 199/86 Pulse: 91 Respirations: 17 Pulse Ox (%): 94 - Physical Exam General: Alert, In no apparent distress, Oriented x3 HEENT: Mucous membr. moist/pink Neck: JVD not distended Respiratory: Clear to auscultation bilaterally, Normal air movement Cardiovascular: No edema, Regular rate/rhythm, Normal S1 S2 Gastrointestinal: Soft and benign, Non-distended Musculoskeletal: No swelling Integumentary: No rashes Neurological: Normal strength at 5/5 x4 extr - Studies Laboratory Data (last 24 hrs) 09/30/21 05:38: Sodium 141, Potassium 3.9, BUN 23 H, Creatinine 0.78, Glucose 107 H, Total Bilirubin 0.4, AST 28, ALT 24, Alkaline Phosphatase 73 09/30/21 05:38: WBC 12.60 H D, Hgb 10.7 L D, Hct 33.2 L D, Plt Count 190 09/29/21 22:44: Magnesium Cancelled 09/29/21 22:42: Sodium 139, Potassium 3.9, BUN 22 H, Creatinine 0.83, Glucose 113 H, Magnesium 2.1, Total Bilirubin 0.4, AST 23, ALT 21, Alkaline Phosphatase 72 Assessment And Plan - Current Problems (Diagnosis) (1) Rapid atrial fibrillation Current Visit: Yes Status: Acute (2) Uncontrolled hypertension Current Visit: No Status: Acute (3) Hypothyroidism Current Visit: Yes Status: Acute - Plan Patient with colostomy reversal. Currently in sinus rhythm. Blood pressure is elevated. Continue metoprolol twice daily. Home antihypertensives resumed. Labetalol as needed for BP spikes. TSH within normal limits. Will hold Synthroid until his heart rate improve. Pain management as needed. Patient currently on ice chips and water. Diet per Dr. Houston. Monitor and optimize electrolytes. Keep potassium greater than 4 and magnesium greater than 2.
--- NOTE | 2021-09-30 13:17 | EKG ---
Test Date: 2021-09-29 Test Time: 22:39:32 Test Puller: AF MEASUREMENT RESULTS: Intervals: Rate: 155 [place]: QRSD: 68 QT: 282 QTc: 453 [place]: P: [place]: QRS: 50 T: 13 INTERPRETIVE STATEMENTS: Atrial fibrillation with rapid ventricular response Nonspecific ST abnormality, probably digitalis effect Abnormal ECG Compared to ECG 09/22/2021 12:15:45 Sinus rhythm no longer present ST (T wave) deviation still present Electronically Signed On 09-30-21 13:16:09 TRANSPORT TRUCK DRIVER by Dax Esqueda
--- NOTE | 2021-09-30 13:17 | EKG ---
Test Date: 2021-09-29 Test Time: 22:40:18 Dope Dry House Operator: AF MEASUREMENT RESULTS: Intervals: Rate: 143 [place]: QRSD: 62 QT: 302 QTc: 466 [place]: P: [place]: QRS: 54 T: 38 INTERPRETIVE STATEMENTS: Atrial fibrillation with rapid ventricular response Nonspecific ST and T wave abnormality, probably digitalis effect Abnormal ECG Compared to ECG 09/29/2021 22:39:32 No significant changes Electronically Signed On 09-30-21 13:16:07 HEAT TREAT SUPERVISOR by Dax Esqueda
--- NOTE | 2021-09-30 13:21 | ECHO ---
HEIGHT: 5 ft 4 in WEIGHT: 160 lb 0 oz DATE OF STUDY: 09/30/[address]: Heri Urias NP 2-DIMENSIONAL: YES M.MODE: YES DOPPLER: YES COLOR FLOW: YES TDS: YES PORTABLE: DEFINITY: BUBBLE STUDY: DIAGNOSIS: NEW ONSET OF ATRIAL FIBRILLATION CARDIAC HISTORY: CATHERIZATION: SURGERY: PROSTHETIC VALVE: PACEMAKER: MEASUREMENTS (cm) DIASTOLIC (NORMALS) SYSTOLIC (NORMALS) IVSd 0.9 (0.6-1.2) LA Diam 3.4 (1.9-4.0) LVEF 69% LVIDd 4.2 (3.5-5.7) LVIDs 2.6 (2.0-3.5) %FS 39% LVPWd 1.0 (0.6-1.2) Ao Diam 2.7 (2.0-3.7) 2 DIMENSIONAL ASSESSMENT: RIGHT ATRIUM: NORMAL LEFT ATRIUM: NORMAL RIGHT VENTRICLE: NORMAL LEFT VENTRICLE: NORMAL TRICUSPID VALVE: NORMAL MITRAL VALVE: NORMAL PULMONIC VALVE: NORMAL AORTIC VALVE: NORMAL PERICARDIAL EFFUSION: NONE AORTIC ROOT: NORMAL LEFT VENTRICULAR WALL MOTION: NORMAL DOPPLER/COLOR FLOW: NORMAL COMMENTS: NORMAL 2-DIMENSIONAL ECHOCARDIOGRAM WITH DOPPLER. NORMAL WALL MOTION ABNORMALITY. NO EFFUSION. NORMAL LEFT ATRIAL SIZE. TECHNOLOGIST: DANIEL CURIEL
[2021-09-30] MEDS: Ringers Lactate 1,000 ML IV SCH (14:03)
[2021-09-30] MEDS: AMLODIPINE 5 MG TAB PO SCH (14:05)
--- NOTE | 2021-09-30 14:17 | P.PN ---
Date of Service: 09/30/21 S: Patient has no specific complaints, just ask about what blood pressure medication she is on. Last night went into A. fib. Consult was sought, and she is now back in normal sinus rhythm. O: Vital signs are stable, heart rate normal sinus rhythm. Chest movement equal bilaterally. Abdomen remains soft. Minimal after AGGIE drain. Patient is having some bowel movements. A: Surgically stable. Will DC her antibiotics. Start her on some Pepcid. She has been placed on a blood thinner. Good effort on incentive spirometry. We wi ll try and advance her diet. P: Continue current therapy, continue to mobilize, advance diet, encourage incentive spirometry. We will most likely DC AGGIE drain in the a.m.
[2021-09-30] MEDS: FAMOTIDINE 20 MG/2 ML VIAL IV SCH (14:38)
[2021-09-30] MEDS: NICOTINE 21 MG/PAT TD SCH (14:39)
[2021-09-30] MEDS ORDERED: ENSURE ENLIVE 237 ML CAN PO SCH (15:00)
[2021-09-30] MEDS: LABETALOL 20 MG/4ML SYRINGE IV PRN (16:57)
[2021-10-01] MEDS: LABETALOL 20 MG/4ML SYRINGE IV PRN ×2 (03:50→11:45)
[2021-10-01] MEDS: ONDANSETRON 4 MG/2 ML VIAL IV PRN ×3 (03:56→20:06)
[2021-10-01] MEDS: HYDROMORPHONE HCL 1 MG/ML INJ IV PRN ×4 (03:56→23:08)
[2021-10-01] MEDS: METOPROLOL TAR 25 MG TAB PO SCH ×2 (05:51→18:06)
[2021-10-01 06:01] LABS: Absolute Lymphocytes (CBC) 1.1 K/uL (0.7-4.9); Basophils % 0.1 % (0-1.3); Hematocrit 35.3 % (36.0-45.0); Lymphocytes % 10.1 % (15.3-44.8); MPV 9.5 fL (7.6-11.3); RBC Red Blood Cell Count 3.78 M/uL (3.86-4.86)
[2021-10-01 06:17] LABS: ALT/SGPT 24 U/L (12-78); AST/SGOT 23 U/L (15-37); Albumin 2.4 g/dL (3.4-5.0); Alkaline Phosphatase 74 U/L (45-117); BUN Blood Urea Nitrogen 16 mg/dL (7-18); Bicarbonate 25 mmol/L (21-32); Bilirubin Total 0.5 mg/dL (0.2-1.0); Glucose Level 110 mg/dL (74-106); Potassium 3.4 mmol/L (3.5-5.1); Protein, Total 6.1 g/dL (6.4-8.2); Sodium Level 140 mmol/L (136-145)
[2021-10-01] MEDS ORDERED: PROMETHAZINE INJ 25 MG/ML AMP IV PRN (08:09)
[2021-10-01] MEDS: lisinopriL 20 MG TAB PO SCH ×2 (08:40→20:06)
[2021-10-01] MEDS: FAMOTIDINE 20 MG/2 ML VIAL IV SCH (08:41)
[2021-10-01] MEDS: AMLODIPINE 5 MG TAB PO SCH (08:50)
[2021-10-01] MEDS: NICOTINE 21 MG/PAT TD SCH (08:51)
[2021-10-01] MEDS: ENOXAPARIN 80 MG/0.8 ML SQ SCH ×2 (08:51→20:09)
[2021-10-01] MEDS ORDERED: POTASSIUM CL SA 10 MEQ TAB PO ONE ×2 (09:00→21:00)
--- NOTE | 2021-10-01 12:26 | P.PN ---
Subjective Date of Service: 10/01/21 Chief Complaint: Colostomy reversal Patient states she feels much better, pain is better controlled. Her diet has also been advanced and she is tolerating She remains in sinus rhythm. Physical Examination - Vital Signs Temperature: 98.4 F Blood Pressure: 177/89 Pulse: 84 Respirations: 15 Pulse Ox (%): 97 - Physical Exam General: Alert, In no apparent distress, Oriented x3 HEENT: Mucous membr. moist/pink Neck: Supple, JVD not distended Respiratory: Clear to auscultation bilaterally, Normal air movement Cardiovascular: No edema, Regular rate/rhythm, Normal S1 S2 Gastrointestinal: Soft and benign, Non-distended Musculoskeletal: No swelling, No tenderness Integumentary: No rashes Neurological: Normal strength at 5/5 x4 extr - Studies Laboratory Data (last 24 hrs) 10/01/21 05:45: Sodium 140, Potassium 3.4 L, BUN 16, Creatinine 0.59, Glucose 110 H, Total Bilirubin 0.5, AST 23, ALT 24, Alkaline Phosphatase 74 10/01/21 05:45: WBC 10.60 D, Hgb 11.7 L, Hct 35.3 L, Plt Count 193 09/30/21 13:48: Magnesium 2.3 Assessment And Plan - Current Problems (Diagnosis) (1) Rapid atrial fibrillation Current Visit: Yes Status: Acute (2) Uncontrolled hypertension Current Visit: No Status: Acute (3) Hypothyroidism Current Visit: Yes Status: Acute - Plan s/p colostomy reversal. Currently in sinus rhythm. Blood pressure is elevated. Continue metoprolol twice daily. Home antihypertensives resumed. Labetalol as needed for BP spikes. TSH within normal limits. Resume Synthroid. Pain management as needed. Patient started on regular diet Monitor and optimize electrolytes. Keep potassium greater than 4 and magnesium greater than 2.
[2021-10-01] MEDS ORDERED: AMLODIPINE 5 MG TAB PO ONE (13:25)
--- NOTE | 2021-10-01 15:35 | P.PN ---
Date of Service: 10/01/21 S: Patient up ambulating today passing gas per rectum. No true bowel movements. Still has some nausea. Normal sinus rhythm and blood pressure stable. O: Vital signs are stable, incisions are clean, abdomen soft, minimal output in AGGIE A: Postoperative ileus appears to be slowly resolving P: Continue to mobilize patient, advance diet as tolerated, DC AGGIE drain
[2021-10-01 17:11] VITALS: BMI 27.3
[2021-10-01] MEDS: HYDROCODONE/APAP 7.5/325 MG TAB PO PRN (20:07)
[2021-10-01] MEDS: AZELASTINE EYE DROPS OPTH SCH (20:09)
[2021-10-01] MEDS: Ringers Lactate 1,000 ML IV SCH (22:44)
[2021-10-02] MEDS: HYDROCODONE/APAP 7.5/325 MG TAB PO PRN ×3 (05:05→21:05)
[2021-10-02] MEDS: METOPROLOL TAR 25 MG TAB PO SCH ×2 (05:05→18:27)
[2021-10-02 06:04] LABS: Absolute Lymphocytes (CBC) 1.3 K/uL (0.7-4.9); Basophils % 0.4 % (0-1.3); Hematocrit 36.6 % (36.0-45.0); Lymphocytes % 12.9 % (15.3-44.8); MPV 9.8 fL (7.6-11.3); RBC Red Blood Cell Count 3.92 M/uL (3.86-4.86)
[2021-10-02 06:09] LABS: ALT/SGPT 20 U/L (12-78); AST/SGOT 16 U/L (15-37); Albumin 2.4 g/dL (3.4-5.0); Alkaline Phosphatase 71 U/L (45-117); BUN Blood Urea Nitrogen 13 mg/dL (7-18); Bicarbonate 29 mmol/L (21-32); Bilirubin Total 0.4 mg/dL (0.2-1.0); Glucose Level 106 mg/dL (74-106); Potassium 3.7 mmol/L (3.5-5.1); Protein, Total 5.9 g/dL (6.4-8.2); Sodium Level 138 mmol/L (136-145)
[2021-10-02] MEDS: AZELASTINE EYE DROPS OPTH SCH ×2 (09:00→21:00)
[2021-10-02] MEDS ORDERED: POTASSIUM CL SA 10 MEQ TAB PO ONE (09:00)
[2021-10-02] MEDS: LEVOTHYROXINE SOD 0.025 MG TAB PO SCH (09:32)
[2021-10-02] MEDS: lisinopriL 20 MG TAB PO SCH ×2 (09:32→21:05)
[2021-10-02] MEDS: AMLODIPINE 5 MG TAB PO SCH (09:33)
[2021-10-02] MEDS: ENOXAPARIN 80 MG/0.8 ML SQ SCH ×2 (09:33→21:03)
[2021-10-02] MEDS: NICOTINE 21 MG/PAT TD SCH (09:33)
[2021-10-02] MEDS: FAMOTIDINE 20 MG/2 ML VIAL IV SCH (09:33)
[2021-10-02 10:07] LABS: Blood Morphology Comment NOT SEEN (NOT SEEN); Platelet Estimate ADEQ
--- NOTE | 2021-10-02 12:48 | P.PN ---
Subjective Date of Service: 10/02/21 Chief Complaint: Colostomy reversal Patient has no new complaints. She is tolerating a diet She remains in sinus rhythm. Blood pressure readings have improved. Physical Examination - Vital Signs Temperature: 98.1 F Blood Pressure: 164/85 Pulse: 80 Respirations: 20 Pulse Ox (%): 94 - Physical Exam General: Alert, In no apparent distress, Oriented x3 HEENT: Mucous membr. moist/pink Neck: JVD not distended Respiratory: Clear to auscultation bilaterally, Normal air movement Cardiovascular: No edema, Normal pulses, Regular rate/rhythm, Normal S1 S2 Gastrointestinal: Soft and benign, Non-distended Musculoskeletal: No swelling Integumentary: No rashes Neurological: Normal strength at 5/5 x4 extr - Studies Laboratory Data (last 24 hrs) 10/02/21 05:36: WBC 10.30, Hgb 12.5, Hct 36.6, Plt Count 193 10/02/21 05:30: Sodium 138, Potassium 3.7, BUN 13, Creatinine 0.65, Glucose 106, Total Bilirubin 0.4, AST 16, ALT 20, Alkaline Phosphatase 71 10/01/21 15:46: Magnesium 2.2 10/01/21 15:46: Potassium 3.5 Assessment And Plan - Current Problems (Diagnosis) (1) Rapid atrial fibrillation Current Visit: Yes Status: Acute (2) Uncontrolled hypertension Current Visit: No Status: Acute (3) Hypothyroidism Current Visit: Yes Status: Acute - Plan s/p colostomy reversal. Currently in sinus rhythm. Blood pressure readings improved. Continue metoprolol twice daily. Home antihypertensives resumed. Added amlodipine 10 mg daily. Labetalol as needed for BP spikes. TSH within normal limits. Continue Synthroid. Pain management as needed. Patient tolerating solid diet. Monitor and optimize electrolytes. Keep potassium greater than 4 and magnesium greater than 2.
--- NOTE | 2021-10-02 15:04 | P.PN ---
Date of Service: 10/02/21 S: Patient still just passing gas, has passed some dark old blood, but no BMs yet. Does not have much of an appetite at the moment, but is working on that today. Good effort on incentive spirometry. O: Vital signs are stable, clinically patient looks well but obviously very weak. A: Postop ileus appears to be resolving, will encourage p.o. input, has physical therapy ordered for assisting her. PE: Anticipate discharge soon.
[2021-10-02] MEDS ORDERED: HYDROMORPHONE HCL 1 MG/ML INJ IV PRN (20:26)
[2021-10-03] MEDS: HYDROCODONE/APAP 7.5/325 MG TAB PO PRN (03:36)
[2021-10-03] MEDS: METOPROLOL TAR 25 MG TAB PO SCH (05:56)
[2021-10-03] MEDS: LEVOTHYROXINE SOD 0.025 MG TAB PO SCH (05:57)
[2021-10-03 06:01] LABS: BUN Blood Urea Nitrogen 10 mg/dL (7-18); Bicarbonate 28 mmol/L (21-32); Glucose Level 93 mg/dL (74-106); Potassium 3.6 mmol/L (3.5-5.1); Sodium Level 136 mmol/L (136-145)
[2021-10-03] MEDS ORDERED: POTASSIUM 25 MEQ EFFERV TAB PO ONE (06:12)
[2021-10-03] MEDS: AZELASTINE EYE DROPS OPTH SCH (09:00)
--- NOTE | 2021-10-03 09:17 | CON ---
Date of Consultation: 09/30/2021 Reason For Consultation: Atrial fibrillation. History Of Present Illness: Ms. Clayton is a 65-year-old woman with a history of hypothyroidism an d hypertension, came in for exploratory laparotomy for colostomy takedown and has been doing well; ho wever, she went into atrial fibrillation with rapid ventricular response and by the time I saw her, s he has received digoxin and metoprolol and converted back to sinus rhythm. She is asymptomatic. Morton s not have a history of atrial fibrillation in the past. Past Medical History: Otherwise stated above. Allergies: SHE IS ALLERGIC TO PENICILLIN, MORPHINE, AND CODEINE. Medications: At home include Zestril and Synthroid. Review of Systems: Negative. Social History: Negative. Family History: Negative. Physical Examination: Vital Signs: When I saw her; she was in sinus rhythm at a rate of 84, blood pressure was 96/67. HEENT: Negative. Neck: Supple with no bruit. Chest: Clear. Cardiac: Revealed a regular rhythm and rate with no murmurs, gallops, or rubs. Abdomen: Status post colostomy takedown with positive bowel sounds. Extremities: Revealed no clubbing, cyanosis, or edema. Diagnostic Data: First EKG showed AFib and was sinus rhythm. Hemoglobin is 10.7. Chest x-ray is ne gative. Creatinine is 0.78. Impression And Plan: Paroxysmal atrial fibrillation may be secondary to anemia and recent surgery. I think when she goes home, I would add metoprolol and aspirin to her regimen in addition to her Zest ril and Synthroid. I think we should get an echocardiogram. I do not think she needs to be anticoag ulated at this point unless the echocardiogram is very abnormal. I would like to see her in the [facility] as an outpatient. KAREN/IMANI Voice ID: [id number] Report ID: [id number]
[2021-10-03] MEDS: NICOTINE 21 MG/PAT TD SCH (09:43)
[2021-10-03] MEDS: ENOXAPARIN 80 MG/0.8 ML SQ SCH (09:44)
[2021-10-03] MEDS: lisinopriL 20 MG TAB PO SCH (09:44)
[2021-10-03] MEDS: FAMOTIDINE 20 MG/2 ML VIAL IV SCH (09:45)
[2021-10-03] MEDS: AMLODIPINE 5 MG TAB PO SCH (09:46)
[2021-10-03] MEDS: Ringers Lactate 1,000 ML IV SCH (09:48)
[2021-10-03 11:54] VITALS: O2SAT 97
[2021-10-03 12:00] VITALS: BP 129/74; TEMP 97.9
--- NOTE | 2021-10-03 14:35 | P.DS ---
Admission Date: 09/27/21 Discharge Date: 10/03/21 Disposition: ROUTINE DISCHARGE Discharge Condition: GOOD Reason for Admission: Acute postoperative abdominal pain Consultations: During the patient's hospital stay, a consult was sought with the hospitalist to help with fluid management and also blood pressure thyroid as well as an episode of atrial fibrillation She was also seen again with Dr. Tuttle in regards to her A. fib Brief History of Present Illness: Patient had a colostomy for ruptured diverticulitis a few years ago. She presents now for elective takedown. Hospital Course: The patient underwent her elective surgery. She tolerated it well. At the time of surgery it was necessary to do a Guillermo rectal as well as a ileocolic anastomosis due to adhesions scar tissue. Postoperatively the patient had a prolonged postoperative ileus. Today she is up ambulating, tolerating a diet, and is anxious for discharge. Is also be should be noted that [address] her surgery she had episode of atrial fibrillation that was controlled with amiodarone. At that time the hospitalist and cardiology were consulted. She has been in stable condition and is now deemed fit for discharge. Vital Signs/Physical Exam: Temp Pulse Resp BP Pulse Ox 97.9 F 78 16 129/74 97 10/03/21 11:59 10/03/21 11:59 10/03/21 11:59 10/03/21 11:59 10/03/21 11:59 Laboratory Data at Discharge: WBC 10.30 K/uL (4.3-10.9) 10/02/21 05:36 Hgb 12.5 g/dL (12.0-15.0) 10/02/21 05:36 Hct 36.6 % (36.0-45.0) 10/02/21 05:36 Plt Count 193 K/uL (152-406) 10/02/21 05:36 Sodium 136 mmol/L (136-145) 10/03/21 05:18 Potassium 3.6 mmol/L (3.5-5.1) 10/03/21 05:18 BUN 10 mg/dL (7-18) 10/03/21 05:18 Creatinine 0.59 mg/dL (0.55-1.3) 10/03/21 05:18 Glucose 93 mg/dL (74-106) 10/03/21 05:18 Magnesium 2.2 mg/dL (1.8-2.4) 10/01/21 15:46 Total Bilirubin 0.4 mg/dL (0.2-1.0) 10/02/21 05:30 AST 16 U/L (15-37) 10/02/21 05:30 ALT 20 U/L (12-78) 10/02/21 05:30 Alkaline Phosphatase 71 U/L (45-117) 10/02/21 05:30 Home Medications: Levothyroxine Sodium 25 mcg PO DAILY 10/04/19 Azelastine HCl 1 gtt EACH EYE BID 07/06/21 Lisinopril [Zestril] 30 mg PO BID 07/06/21
--- NOTE | 2021-10-03 16:07 | P.PN ---
Subjective Date of Service: 10/03/21 Chief Complaint: Acute postoperative abdominal pain Patient has no new complaints. She has been tolerating diet She remains in sinus rhythm. Physical Examination - Vital Signs Temperature: 97.9 F Blood Pressure: 129/74 Pulse: 78 Respirations: 16 Pulse Ox (%): 97 - Physical Exam General: Alert, In no apparent distress, Oriented x3 HEENT: Mucous membr. moist/pink Neck: Supple, JVD not distended Respiratory: Clear to auscultation bilaterally, Normal air movement Cardiovascular: No edema, Regular rate/rhythm, Normal S1 S2 Gastrointestinal: Normal bowel sounds, Soft and benign, Non-distended Musculoskeletal: No swelling Integumentary: No rashes Neurological: Normal strength at 5/5 x4 extr - Studies Laboratory Data (last 24 hrs) 10/03/21 05:18: Sodium 136, Potassium 3.6, BUN 10, Creatinine 0.59, Glucose 93 Assessment And Plan - Current Problems (Diagnosis) (1) Rapid atrial fibrillation Status: Acute (2) Uncontrolled hypertension Status: Acute (3) Hypothyroidism Status: Acute - Plan s/p colostomy reversal. Patient remain in sinus rhythm. Continue metoprolol twice daily. Home antihypertensives resumed. Added amlodipine 10 mg daily. Labetalol as needed for BP spikes. TSH within normal limits. Continue Synthroid. Patient tolerating solid diet.
== END 2021-10-03 15:48 | disposition home or self-care (01) | DRG 330 ==
LOC: OR 08:40 → 2ND 15:11 → OBSVTOIN 09-27 11:44
PROVIDERS: ADMIT Surgery; ATTEND Surgery
PROC: 0DBC0ZZ Excision of Ileocecal Valve, Open Approach (ICD-10-PCS; 2021-09-26)
PROC: 0DNU0ZZ Release Omentum, Open Approach (ICD-10-PCS; 2021-09-26)
PROC: 0DBB0ZZ Excision of Ileum, Open Approach (ICD-10-PCS; principal; 2021-09-26 10:00)
DX: Z43.3 Encounter for attention to colostomy (principal); K56.7 Ileus, unspecified; E03.9 Hypothyroidism, unspecified; I10 Essential (primary) hypertension; I48.91 Unspecified atrial fibrillation; Z20.822 Contact with and (suspected) exposure to COVID-19; F17.210 Nicotine dependence, cigarettes, uncomplicated; Z88.0 Allergy status to penicillin
CPT/HCPCS: 36415; 71046; 80048; 80053; 83735; 84132; 84439; 84443; 85025; 88304; 88305; 93005; 93306; 94010; 97116; 97161; G0378; G0379; J0282; J0694; J0744; J1100; J1160; J1170; J2250; J2370; J2405; J2550; J2704; J3010; J7040; J7120; U0003

== ENCOUNTER 2021-11-14 20:04 | Emergency (ER) | payer OTHER ==
--- OUTSIDE RECORDS SUMMARY | 2021-11-14 20:07 | XMS REPORT | Continuity of Care Document ---
:1955 Author Organization [facility] t Address [facility] [address] [place] [id number] Care Team Providers Name Role Phone Marty GARCIA Attending Clinician Unavailable Marty Garcia MD Attending Clinician Only, Test Attending Clinician Unavailable Marty GARCIA Admitting Clinician Unavailable Marty Garcia MD Admitting Clinician Payers Payer Name Policy Type Policy Number Effective Date Expiration Date S ource [place]ICA[place] [id number] 2020 00:00:00 MEDICARE PART A [id number] 2018 00:00:00 Problems Condition Condition Condition Status Onset Resolution Last Treating Co mments Source Name Details Category Date Date Treatment Clinician Date No known No known Disease Unive rs active active ity of problems problems [facility] Allergies, Adverse Reactions, Alerts Allergy Allergy Status Severity Reaction(s) Onset Inactive Treating Comm ents Source Name Type Date Date Clinician Codeine Propensi Active Nausea 2016-11 Univers ty to and/or 11-14 ity of adverse Vomiting 00:00: [place] reaction 00 Medical s Branch Penicill Propensi Active Rash 2016-11 Univer s in ty to 11-14 ity of adverse 00:00: [place] reaction 00 [facility] s Branch CODEINE DRUG Active N/V 2016-11 Univers INGREDI 11-14 ity of 00:00: [place] 00 Medical [place] PENICILL DRUG Active Rash 2016-11 Univers IN INGREDI 11-14 ity of 00:00: [place] 00 Medical [place] Social History Social Habit Start Date Stop Date Quantity Comments Source Sex Assigned At [facility] Medical Branch Exposure to Not sure [facility] SARS-CoV-2 (event) Medica l Branch Tobacco use and 2020-08-24 2020-08-24 Never used [facility] exposure 00:00:00 00:00:00 Medical [place] Smoking Status Start Date Stop Date Source Current every day smoker 2020-08-24 00:00:00 Uni versity of [facility] Medications Ordered Filled Start Stop Current Ordering Indication Dosage Frequency Signature Comments Components Source Medication Medication Date Date Medication? Clinician (SIG) Name Name lisinopriL 2019-11 Yes 30mg Take 30 mg U nivers 30 mg 0-15 by mouth ity of tablet 14:52: daily. [address] Levothyroxi 2019-11 Yes Take by Un meliza ne 25 mcg 0-15 mouth. ity of capsule 14:52: [address] azelastine 2019-11 Yes 1[drp] Place 1 Un meliza 0.05 % 0-15 Drop in ity of ophthalmic 14:52: both eyes [place] solution 05 2 (two) Medical times [place] daily. lactated 2019-11 Yes 1000mL at 75 Univer s ringers IV 0-15 mL/hr, ity of infusion 14:45: 1,000 mL[place] 1[place]000 [place] 00 IV Medical Infusion, [place] CONTINUOUS , Starting Skyla 08/26/20 at 0945, [...] 00 08/26/20 Medical mg/0.6 mL at 0836, [place] drops Until Discontinu ed, Routine, Intra-op lactated 2019-11 2020- No 1000mL at 42 Unive rs ringers IV 0-15 10-15 mL/hr, ity of infusion 13:15: 13:21 1,000 mL, [place] as 1,000 mL 00 :00 IV Medical Infusion, [place] ONCE, 1 dose, Skyla 08/26/20 at 0815, Routine, DSU Pre-op lisinopriL 2019-11 Yes 30mg Take 30 mg U nivers 30 mg 0-13 by mouth ity of tablet 19:43: daily. [address] Levothyroxi 2019-11 Yes Take by Un meliza ne 25 mcg 0-13 mouth. ity of capsule 19:43: [place] 58 Medical Branch azelastine 2019-11 Yes 1[drp] Place 1 Un meliza 0.05 % 0-13 Drop in ity of ophthalmic 19:43: both eyes [place] solution 58 2 (two) Medical times Branch daily. sulfamethox Yes [id number] 1{tbl} Take 1 Univers azole-trime 4-13 tablet by ity of thoprim 00:00: mouth [place] 800-160 mg 00 every 12 Medic al per tablet (twelve) Branc h hours. fluconazole Yes [id number] Take one Univers 150 mg 4-13 tablet PO ity of tablet 00:00: today, 00 then one Medical tablet PO Branch in 10 days, at the end of antibiotic treatment. sulfamethox Yes [id number] 1{tbl} Take 1 Univers azole-trime 4-13 tablet by ity of thoprim 00:00: mouth [place] 800-160 mg 00 every 12 Medic al per tablet (twelve) Branc h hours. fluconazole Yes [id number] Take one Univers 150 mg 4-13 tablet PO ity of tablet 00:00: today, 00 then one Medical tablet PO Branch in 10 days, at the end of antibiotic treatment. cloniDINE 2016-11 Yes .1mg Take 1 Univer s 0.1 mg 1-03 tablet by ity of tablet 00:00: mouth 2 [place] 00 (two) Medical times Branch daily. cloniDINE 2016-11 Yes .1mg Take 1 Univer s 0.1 mg 1-03 tablet by ity of tablet 00:00: mouth 2 00 (two) Medical times Branch daily. Vital Signs Vital Name Observation Time Observation Value Comments Source Systolic blood 2020-08-26 14:30:00 119 mm[Hg] Univer sity of pressure [facility] Diastolic blood 2020-08-26 14:30:00 83 mm[Hg] Unive rsity of pressure [facility] Heart rate 2020-08-26 14:30:00 87 /min Universi ty of [facility] Respiratory rate 2020-08-26 14:30:00 15 /min Univ ersity [facility] Oxygen saturation in 2020-08-26 14:30:00 95 /min [facility] Arterial blood by [facility] Pulse oximetry Branch Body temperature 2020-08-26 14:15:00 36.17 [place] [facility] 2020-08-26 13:16:00 27.28 kg/m2 [facility] Body weight 2020-08-26 13:16:00 72.122 kg [facility] Body height 2020-08-25 18:23:00 162.6 cm [facility] Procedures Procedure Date / Time Performing Clinician Source Performed COLONOSCOPY (ENDO) 2020-08-26 12:05:21 Mendez May [facility] PATIENT FINANCIAL 2020-08-25 18:42:58 Doctor Unassigned, [facility] POLICY [facility] NO SHOW OR MISSED 2020-08-25 17:55:08 Doctor Unassigned, [facility] APPOINTMENT POLICY [facility] ACKNOWLEDGEMENT CONSENT/REFUSAL FOR 2020-08-25 17:54:49 Doctor Unassdipti, [facility] DIAGNOSIS AND TREATMENT [facility] ASSIGNMENT OF BENEFITS 2020-08-25 17:54:30 Doctor Unassigned, [facility] CONSENT/REFUSAL FOR 2020-08-25 17:54:14 Doctor Unassigned, [facility] DIAGNOSIS AND TREATMENT [facility] ASSIGNMENT OF BENEFITS 2020-08-25 17:54:01 Doctor Unassigned, [facility] DSU PRE-OP 2020-08-20 05:01:00 Doctor Unassigned, [facility] Encounters Start End Encounter Admission Attending Care Care Encounter Source Date/Time Date/Time Type Type Clinicians Facility Department ID 2021-09-09 Outpatient R [facility] RACHEL [id number] 1805 [facility] 22:56:09 LIDIA Golden ity [facility] 2020-08-26 2020-08-26 [facility] [id number] Univers 08:03:00 09:45:00 Encounter eLidia [id number] [facility] [id number] [place] [facility] [id number] [facility] 071 Branch 2020-08-25 2020-08-25 Outpatient R INDIRA [facility] [id number] Univers 13:15:00 13:15:00 LIDIA Golden [facility] 2020-08-25 2020-08-25 Laboratory Only, Adc Test [facility] [id number] Univers 12:52:17 13:07:17 Only Lidia Garcia 350.1.1 3.10 ity regan Ariza [id number] [facility] [id number] [place] [address] Branch Results This patient has no known results.
--- NOTE | 2021-11-14 22:28 | ER ---
Nurse's Notes [facility] Name: Claribel Clayton Age: 65 yrs Sex: Female : 1955 Arrival Date: 11/14/2021 Time: 20:05 Bed Waiting Private MD: Diagnosis: Presentation: 11/14 20:29 Chief complaint: Patient states: had a colostomy reversal on Sep 26, 2021.lost 30 iw pounds, was seen [place] and diagnosed with infection at the site , has been on abx, is having a lo of pain , states Dr. Houston sent her here. Coronavirus screen: At this time, the client does not indicate any symptoms associated with coronavirus-19. Ebola Screen: Patient negative for fever greater than or equal to 101.5 degrees Fahrenheit, and additional compatible Ebola Virus Disease symptoms Patient denies exposure to infectious person. Patient denies travel to an Ebola-affected area in the 21 days before illness onset. No symptoms or risks identified at this time. Initial Sepsis Screen: Does the patient meet any 2 criteria? No. Patient's initial sepsis screen is negative. Does the patient have a suspected source of infection? No. Patient's initial sepsis screen is negative. Risk Assessment: Do you want to hurt yourself or someone else? Patient reports no desire to harm self or others. Onset of symptoms was November 05, 2021. 20:29 Method Of Arrival: Ambulatory iw 20:29 Acuity: MARIANNE 2 iw Historical: - Allergies: 20:31 Codeine; iw 20:31 PENICILLINS; iw - Home Meds: 20:31 clonidine HCl 0.1 mg Oral tab 1 tab 2 times per day [Active]; Eliquis 5 mg Oral tab 1 iw tab 2 times per day [Active]; levothyroxine 25 mcg tab 1 tab once daily [Active]; lisinopril 20 mg Oral tab 1 tab twice a day [Active]; sotalol 80 mg Oral tab 0.5 tab 2 times per day [Active]; - PMHx: 20:31 CVA; Hypertension; Hypothyroidism; iw - PSHx: 20:31 Colostomy reversal; iw - Immunization history:: Client reports having NOT received the Covid vaccine. - Social history:: Smoking status: Patient reports the use of cigarette tobacco products. Vital Signs: 20:29 BP 123 / 93; Pulse 111; Resp 16; Temp 98.4; Pulse Ox 100% on R/A; Weight 63.05 kg; iw Height 5 ft. 4 in. (162.56 cm); 20:29 Body Mass Index 23.86 (63.05 kg, 162.56 cm) iw ED Course: 20:05 Patient arrived in ED. ag3 20:31 Triage completed. iw 20:31 Arm band placed on. iw Administered Medications: No medications were administered Outcome: 22:26 Eloped from waiting room, before seeing physician as6 22:27 Patient left the ED. as6 Signatures: Hortensia Hernández, RN RN iw Blossom Salazar ag3 Irving Chow, JONA RN as6
[2021-11-14 22:30] VITALS: BP 123/93; TEMP 98.4; O2SAT 100
== END 2021-11-14 22:27 | disposition left against medical advice (07) ==
LOC: ER 20:04
DX: Z53.21 Procedure and treatment not carried out due to patient leaving prior to being seen by health care provider (principal)
CPT/HCPCS: 99281

== ENCOUNTER 2021-11-19 20:13 | Inpatient (IN) | payer OTHER ==
--- OUTSIDE RECORDS SUMMARY | 2021-11-19 20:16 | XMS REPORT | Continuity of Care Document ---
:1955 Author Organization [facility] t Address [facility] Maverick Gurrola [address] [place] [id number] Care Team Providers Name Role Phone Marty GARCIA Attending Clinician Unavailable Marty Garcia MD Attending Clinician Only, Test Attending Clinician Unavailable Marty GARCIA Admitting Clinician Unavailable Marty Garcia MD Admitting Clinician Payers Payer Name Policy Type Policy Number Effective Date Expiration Date S ource MEDICAID OF [place] [id number] 2020 00:00:00 MEDICARE PART A [id number] 2018 00:00:00 Problems Condition Condition Condition Status Onset Resolution Last Treating Co mments Source Name Details Category Date Date Treatment Clinician Date No known No known Disease Unive rs active active ity of problems problems [facility] Allergies, Adverse Reactions, Alerts Allergy Allergy Status Severity Reaction(s) Onset Inactive Treating Comm ents Source Name Type Date Date Clinician Codeine Propensi Active Nausea 2016-11 Univers ty to and/or 11-14 ity of adverse Vomiting 00:00: [place] reaction 00 Medical s Branch Penicill Propensi Active Rash 2016-11 Univer s in ty to 11-14 ity of adverse 00:00: [place] reaction 00 [facility] s [place] CODEINE DRUG Active N/V 2016-11 Univers INGREDI 11-14 ity of 00:00: [place] 00 Medical [place] PENICILL DRUG Active Rash 2016-11 Univers IN INGREDI 11-14 ity of 00:00: [place] 00 Medical [place] Social History Social Habit Start Date Stop Date Quantity Comments Source Sex Assigned At [facility] Medical Branch Exposure to Not sure [facility] SARS-CoV-2 (event) Medica l Branch Tobacco use and 2020-08-24 2020-08-24 Never used [facility] exposure 00:00:00 00:00:00 Medical [place] Smoking Status Start Date Stop Date Source Current every day smoker 2020-08-24 00:00:00 Uni versity of [facility] Medications Ordered Filled Start Stop Current Ordering Indication Dosage Frequency Signature Comments Components Source Medication Medication Date Date Medication? Clinician (SIG) Name Name lisinopriL 2019-11 Yes 30mg Take 30 mg U nivers 30 mg 0-15 by mouth ity of tablet 14:52: daily. [address] Levothyroxi 2019-11 Yes Take by Un meliza ne 25 mcg 0-15 mouth. ity of capsule 14:52: [address] azelastine 2019-11 Yes 1[drp] Place 1 Un meliza 0.05 % 0-15 Drop in ity of ophthalmic 14:52: [place] eyes [place] solution 05 2 (two) Medical times [place] daily. lactated 2019-11 Yes 1000mL at 75 Univer s ringers IV 0-15 mL/hr, ity of infusion 14:45: 1,000 [place] 1[place]000 [place] 00 IV Medical Infusion, [place] CONTINUOUS , Starting Skyla 08/26/20 at 0945, [...] 00 08/26/20 Medical mg/0.6 mL at 0836, [place] drops Until Discontinu ed, Routine, Intra-op lactated 2019-11 2020- No 1000mL at 42 Unive rs ringers IV 0-15 10-15 mL/hr, ity of infusion 13:15: 13:21 1,000 mL, [place] as 1,000 mL 00 :00 IV Medical Infusion, [place] ONCE, 1 dose, Skyla 08/26/20 at 0815, Routine, DSU Pre-op lisinopriL 2019-11 Yes 30mg Take 30 mg U nivers 30 mg 0-13 by mouth ity of tablet 19:43: daily. [address] Levothyroxi 2019-11 Yes Take by Un meliza ne 25 mcg 0-13 mouth. ity of capsule 19:43: [place] 58 Medical Branch azelastine 2019-11 Yes 1[drp] Place 1 Un meliza 0.05 % 0-13 Drop in ity of ophthalmic 19:43: both eyes [place] solution 58 2 (two) Medical times Branch daily. sulfamethox Yes [id number] 1{tbl} Take 1 Univers azole-trime 4-13 tablet by ity of thoprim 00:00: mouth [place] 800-160 mg 00 every 12 Medic al per tablet (twelve) Branc h hours. fluconazole Yes [id number] Take one Univers 150 mg 4-13 tablet PO ity of tablet 00:00: today, 00 then one Medical tablet PO Branch in 10 days, at the end of antibiotic treatment. sulfamethox Yes [id number] 1{tbl} Take 1 Univers azole-trime 4-13 tablet by ity of thoprim 00:00: mouth [place] 800-160 mg 00 every 12 Medic al per tablet (twelve) Branc h hours. fluconazole Yes [id number] Take one Univers 150 mg 4-13 tablet PO ity of tablet 00:00: today, 00 then one Medical tablet PO Branch in 10 days, at the end of antibiotic treatment. cloniDINE 2016-11 Yes .1mg Take 1 Univer s 0.1 mg 1-03 tablet by ity of tablet 00:00: mouth 2 [place] 00 (two) Medical times Branch daily. cloniDINE 2016-11 Yes .1mg Take 1 Univer s 0.1 mg 1-03 tablet by ity of tablet 00:00: mouth 2 00 (two) Medical times Branch daily. Vital Signs Vital Name Observation Time Observation Value Comments Source Systolic blood 2020-08-26 14:30:00 119 mm[Hg] Univer sity of pressure [facility] Diastolic blood 2020-08-26 14:30:00 83 mm[Hg] Unive rsity of pressure [facility] Heart rate 2020-08-26 14:30:00 87 /min Universi ty of [facility] Respiratory rate 2020-08-26 14:30:00 15 /min Univ ersity [facility] Oxygen saturation in 2020-08-26 14:30:00 95 /min [facility] Arterial blood by [facility] Pulse oximetry Branch Body temperature 2020-08-26 14:15:00 [facility].17 [facility] 2020-08-26 13:16:00 27.28 kg/m2 [facility] Body weight 2020-08-26 13:16:00 72.122 kg [facility] Body height 2020-08-25 18:23:00 162.6 cm [facility] Procedures Procedure Date / Time Performing Clinician Source Performed COLONOSCOPY (ENDO) 2020-08-26 12:05:21 Mendez May [facility] PATIENT FINANCIAL 2020-08-25 18:42:58 Doctor Unassigned, [facility] POLICY [facility] NO SHOW OR MISSED 2020-08-25 17:55:08 Doctor Unassigned, [facility] APPOINTMENT POLICY [place] [facility] ACKNOWLEDGEMENT CONSENT/REFUSAL FOR 2020-08-25 17:54:49 Doctor Unassdipti, [facility] DIAGNOSIS AND TREATMENT [facility] ASSIGNMENT OF BENEFITS 2020-08-25 17:54:30 Doctor Unassigned, [facility] CONSENT/REFUSAL FOR 2020-08-25 17:54:14 Doctor Unassigned, [facility] DIAGNOSIS AND TREATMENT [facility] ASSIGNMENT OF BENEFITS 2020-08-25 17:54:01 Doctor Unassigned, [facility] DSU PRE-OP 2020-08-20 05:01:00 Doctor Unassigned, [facility] Encounters Start End Encounter Admission Attending Care Care Encounter Source Date/Time Date/Time Type Type Clinicians Facility Department ID 2021-09-09 Outpatient R [facility] RACHEL [id number] 7818 [facility] 22:56:09 LIDIA Golden ity [facility] 2020-08-26 2020-08-26 [facility] [id number] Univers 08:03:00 09:45:00 Encounter eLidia [id number] itCharmain[place] [id number] [place] [id number] [facility] 071 Branch 2020-08-25 2020-08-25 Outpatient R INDIRA [facility] [id number] Univers 13:15:00 13:15:00 LIDIA Golden [facility] 2020-08-25 2020-08-25 Laboratory Only, Adc Test [facility] [id number] Univers 12:52:17 13:07:17 Only Lidia Garcia [id number] 3.10 ity regan Ariza [id number] [facility] [id number] [place] [address] Branch Results This patient has no known results.
[2021-11-19 21:18] LABS: Absolute Lymphocytes (CBC) 2.7 K/uL (0.7-4.9); Lymphocytes % 24.9 % (15.3-44.8); MPV 8.7 fL (7.6-11.3); RBC Red Blood Cell Count 4.13 M/uL (3.86-4.86)
[2021-11-19] MEDS ORDERED: ONDANSETRON 4 MG/2 ML VIAL ONE (21:20)
[2021-11-19] MEDS ORDERED: MORPHINE 4 MG/ML SYR ONE (21:20)
[2021-11-19] MEDS ORDERED: NA CHLORIDE 0.9% 500 ML ONE (21:20)
[2021-11-19] MEDS ORDERED: FAMOTIDINE 20 MG/2 ML VIAL IV ONE (21:20)
[2021-11-19 21:36] LABS: ALT/SGPT 21 U/L (12-78); AST/SGOT 19 U/L (15-37); Albumin 3.1 g/dL (3.4-5.0); Alkaline Phosphatase 74 U/L (45-117); BUN Blood Urea Nitrogen 8 mg/dL (7-18); Bicarbonate 26 mmol/L (21-32); Bilirubin Direct < 0.1 mg/dL (0-0.2); Bilirubin Total 0.3 mg/dL (0.2-1.0); Glucose Level 147 mg/dL (74-106); Lipase 42 U/L (73-393); Potassium 3.8 mmol/L (3.5-5.1); Protein, Total 7.4 g/dL (6.4-8.2); Sodium Level 136 mmol/L (136-145)
--- NOTE | 2021-11-19 22:16 | RAD REPORT ---
EXAM DESCRIPTION: CTAbdomen Pelvis W Contrast - 11/19/2021 9:53 pm CLINICAL HISTORY: Abdominal pain. ABD PAIN COMPARISON: No comparisons TECHNIQUE: Biphasic CT imaging of the abdomen and pelvis was performed with 100 ml non-ionic IV cont rast. All CT scans are performed using dose optimization technique as appropriate and may include automated exposure control or mA/KV adjustment according to patient size. FINDINGS: The lung bases are clear. The liver, spleen, pancreas, adrenal glands and kidneys are within normal limits. There is prominent stool retention in the colon. Moderately thickened small bowel is seen left lower quadrant with wall thickening up to 15 mm. The length of the involved small bowel is approximately cm . Proximal small bowel loops appear mildly dilated with stool air. A small 33 x 20 mm fluid and air c ollection with thick flores is seen in the right lower quadrant adjacent to surgical clips at the cecu m. No free air or free fluid. No evidence of significant lymphadenopathy. No suspicious bony findings. IMPRESSION: Findings are suspicious for a moderate partial developing small bowel obstruction, likel y caused by 5 cm thickened small intestine the inferior left pelvis. 33 x 20 mm fluid and air collection adjacent to surgical clips in the region of the cecum is nonspeci fic. This could be the result of a chronic walled-off leak, postoperative sterile fluid collection or small abscess. This collection is small and in the inferior posterior right aspect of the pelvis, santoyo perior to the uterine fundus, and thus not accessible for percutaneous sampling.
--- NOTE | 2021-11-19 22:40 | EDPHYS ---
Physician Documentation [facility] Name: Claribel Clayton Age: 65 yrs Sex: Female : 1955 Arrival Date: 11/19/2021 Time: 20:16 Bed 9 Private MD: ED Physician Arvind George HPI: 11/19 21:07 This 65 yrs old Female presents to ER via EMS with complaints of Abdominal Pain. kdr 21:07 The patient presents with abdominal pain in the lower abdomen. Onset: The kdr symptoms/episode began/occurred September 26 of last year, the patient had a colostomy reversal by Dr. Houston. Patient was doing well until late in October when she started to have increasing abdominal pain. She came to this ED and waited for about 9 hours prior to leaving and going to [facility] where she had a CT scan done. According to the patient the patient was noted to have some infection around the site of the colostomy reversal. She was given Flagyl and Bentyl which she is taken since then. She is currently out of the Flagyl but is still having lower abdominal pain primarily along her incision at the midline. She has had some nausea but no vomiting and no bowel movement in the last 2 days but she is having some gas.. The symptoms do not radiate. Associated signs and symptoms: Pertinent positives: constipation, nausea, Tympanic bowel sounds, Pertinent negatives: blood in stools, chest pain, diarrhea, dysuria, fever. The symptoms are described as achy, crampy, intermittent, waxing/waning. Modifying factors: The symptoms are alleviated by nothing, the symptoms are aggravated by food, Patient states that any food in her stomach creates significant abdominal pain for a period of time before it finally resolves or improves at the least. Severity of pain: At its worst the pain was moderate severe incapacitating in the emergency department the pain is unchanged. The patient has not experienced similar symptoms in the past. The patient has been recently seen by a physician: Patient was seen at [facility] ED late October.. Historical: - Allergies: 20:38 Codeine; bb 20:38 PENICILLINS; bb - Home Meds: 20:38 clonidine HCl 0.1 mg Oral tab 1 tab 2 times per day [Active]; Eliquis 5 mg Oral tab 1 bb tab 2 times per day [Active]; levothyroxine 25 mcg tab 1 tab once daily [Active]; lisinopril 20 mg Oral tab 1 tab twice a day [Active]; sotalol 80 mg Oral tab 0.5 tab 2 times per day [Active]; - PMHx: 20:38 CVA; Hypertension; Hypothyroidism; bb - PSHx: 20:38 Colostomy reversal; bb - Immunization history:: Client reports having NOT received the Covid vaccine. - Social history:: Smoking status: Patient/guardian denies using tobacco, Stopped _ months ago 2. ROS: 21:07 Constitutional: Negative for fever, chills, and weight loss, Eyes: Negative for injury, kdr pain, redness, and discharge, ENT: Negative for injury, pain, and discharge, Neck: Negative for injury, pain, and swelling, Cardiovascular: Negative for chest pain, palpitations, and edema, Respiratory: Negative for shortness of breath, cough, wheezing, and pleuritic chest pain, Back: Negative for injury and pain, : Negative for injury, bleeding, discharge, and swelling, MS/Extremity: Negative for injury and deformity, Skin: Negative for injury, rash, and discoloration, Neuro: Negative for headache, weakness, numbness, tingling, and seizure activity. Psych: Negative for depression, anxiety, suicide ideation, homicidal ideation, and hallucinations, Allergy/Immunology: Negative for hives, rash, and allergies, Endocrine: Negative for neck swelling, polydipsia, polyuria, polyphagia, and marked weight changes, Hematologic/Lymphatic: Negative for swollen nodes, abnormal bleeding, and unusual bruising. 21:07 Abdomen/GI: Positive for abdominal pain, Negative for vomiting, diarrhea, anorexia, dysphagia, hematemesis, black/tarry stool, rectal pain, rectal bleeding, bowel incontinence. Exam: 21:07 Constitutional: This is a well developed, well nourished patient who is awake, alert, kdr and in no acute distress. Head/Face: Normocephalic, atraumatic. Eyes: Pupils equal round and reactive to light, extra-ocular motions intact. Lids and lashes normal. Conjunctiva and sclera are non-icteric and not injected. Cornea within normal limits. Periorbital areas with no swelling, redness, or edema. Neck: Trachea midline, no thyromegaly or masses palpated, and no cervical lymphadenopathy. Supple, full range of motion without nuchal rigidity, or vertebral point tenderness. No Meningismus. Chest/axilla: Normal chest wall appearance and motion. Nontender with no deformity. No lesions are appreciated. Cardiovascular: Regular rate and rhythm with a normal S1 and S2. No gallops, murmurs, or rubs. Normal PMI, no JVD. No pulse deficits. Respiratory: Lungs have equal breath sounds bilaterally, clear to auscultation and percussion. No rales, rhonchi or wheezes noted. No increased work of breathing, no retractions or nasal flaring. Back: No spinal tenderness. No costovertebral tenderness. Full range of motion. Skin: Warm, dry with normal turgor. Normal color with no rashes, no lesions, and no evidence of cellulitis. MS/ Extremity: Pulses equal, no cyanosis. Neurovascular intact. Full, normal range of motion. Neuro: Awake and alert, GCS 15, oriented to person, place, time, and situation. Cranial nerves II-XII grossly intact. Motor strength 5/5 in all extremities. Sensory grossly intact. Cerebellar exam normal. Normal gait. Psych: Awake, alert, with orientation to person, place and time. Behavior, mood, and affect are within normal limits. 21:07 Abdomen/GI: Inspection: scar(s), are noted in the suprapubic area, left upper quadrant, right lower quadrant and left lower quadrant, Bowel sounds: high pitched, all quadrants. hyperactive, in all quadrants, Palpation: soft, mild abdominal tenderness, in the suprapubic area, left upper quadrant and left lower quadrant. Vital Signs: 20:34 BP 144 / 91; Pulse 91; Resp 18 S; Temp 98.1(TE); Pulse Ox 99% on R/A; Weight 62.6 kg bb (R); Height 5 ft. 4 in. (162.56 cm) (R); Pain 10/10; 21:36 BP 132 / 74; Pulse 84; Resp 17; Pulse Ox 97% on R/A; Pain 4/10; ab2 23:19 BP 135 / 82; Pulse 81; Resp 16 S; Pulse Ox 100% on R/A; Pain 2/10; bb 20:34 Body Mass Index 23.69 (62.60 kg, 162.56 cm) bb MDM: 21:07 Data reviewed: vital signs, nurses notes, lab test result(s), radiologic studies. kdr Counseling: I had a detailed discussion with the patient and/or guardian regarding: the historical points, exam findings, and any diagnostic results supporting the discharge/admit diagnosis, lab results, radiology results. 22:39 Patient medically screened. [facility] 11/19 20:52 Order name: Basic Metabolic Panel; Complete Time: 22:15 kdr 11/19 20:52 Order name: CBC with Diff; Complete Time: 22:15 kdr 11/19 20:52 Order name: Hepatic Function; Complete Time: 22:15 kdr 11/19 20:52 Order name: Lipase; Complete Time: 22:15 kdr 11/19 20:53 Order name: COVID-19/FLU A+B (Document "Date of Onset" if Symptomatic) kdr 11/19 21:05 Order name: CT Abd/Pelvis - IV Contrast Only; Complete Time: 22:29 kdr 11/19 20:52 Order name: IV Saline Lock; Complete Time: 21:11 kdr 11/19 20:52 Order name: Labs collected and sent; Complete Time: 21:11 kdr 11/19 22:38 Order name: NPO; Complete Time: 23:22 la1 Administered Medications: 21:36 Drug: Pepcid (famotidine) 20 mg Route: IVP; Site: right antecubital; ab2 23:22 Follow up: Response: No adverse reaction bb 21:36 Drug: NS 0.9% 500 ml Route: IV; Rate: bolus; Site: right antecubital; ab2 23:22 Follow up: IV Status: Completed infusion; IV Intake: 500ml bb 21:36 Drug: Zofran (Ondansetron) 4 mg Route: IVP; Site: right antecubital; ab2 23:22 Follow up: Response: No adverse reaction bb 21:36 Drug: morphine 4 mg Route: IVP; Site: right antecubital; ab2 23:22 Follow up: Response: No adverse reaction; Pain is decreased; RASS: Alert and Calm (0) bb 11/20 00:07 Drug: morphine 2 mg Route: IVP; Site: right antecubital; bb Disposition Summary: 11/19/21 22:39 Hospitalization Ordered Hospitalization Status: Inpatient Admission kdr Provider: Jared Santos kdr Location: Telemetry/MedSurg (Inpatient) kdr Condition: Fair kdr Problem: an acute exacerbation kdr Symptoms: have improved kdr Bed/Room Type: Standard kdr Room Assignment: 208(11/19/21 23:58) cg Diagnosis - Abdominal pain, Generalized kdr - Lower abdominal pain, unspecified kdr - Partial small bowel obstruction kdr Forms: - Medication Reconciliation Form kdr - SBAR form kdr Signatures: Dispatcher [employer] Arvind Thomas MD MD kdr Rosa Quezada RN RN bb Heri Urias, SCHOOL BUS DISPATCHER-C [employer] DISPATCHER-[facility] Tamika Cao RN RN cg John James2 Corrections: (The following items were deleted from the chart) 11/19 23:58 22:39 kdr cg
--- NOTE | 2021-11-19 22:40 | ER ---
Nurse's Notes [facility] Name: Claribel Clayton Age: 65 yrs Sex: Female : 1955 Arrival Date: 11/19/2021 Time: 20:16 Bed 9 Private MD: Diagnosis: Abdominal pain, Generalized;Lower abdominal pain, unspecified;Partial small bowel obstruction Presentation: 11/19 20:34 Chief complaint: Patient states: she had surgery on Sep 26 for reversal of colostomy bb she has been having abdominal pain and difficulty eating and drinking she has lost 30 pounds in a month she went to [place] and was told she had an infection and given antibiotics the end of October which she completed but she still cannot eat or drink without severe abdominal pain. Coronavirus screen: At this time, the client does not indicate any symptoms associated with coronavirus-19. Ebola Screen: No symptoms or risks identified at this time. Initial Sepsis Screen: Does the patient meet any 2 criteria? No. Patient's initial sepsis screen is negative. Does the patient have a suspected source of infection? No. Patient's initial sepsis screen is negative. Risk Assessment: Do you want to hurt yourself or someone else? Patient reports no desire to harm self or others. Onset of symptoms is unknown. 20:34 Method Of Arrival: EMS: [facility] bb 20:34 Acuity: MARIANNE 3 bb Historical: - Allergies: 20:38 Codeine; bb 20:38 PENICILLINS; bb - Home Meds: 20:38 clonidine HCl 0.1 mg Oral tab 1 tab 2 times per day [Active]; Eliquis 5 mg Oral tab 1 bb tab 2 times per day [Active]; levothyroxine 25 mcg tab 1 tab once daily [Active]; lisinopril 20 mg Oral tab 1 tab twice a day [Active]; sotalol 80 mg Oral tab 0.5 tab 2 times per day [Active]; - PMHx: 20:38 CVA; Hypertension; Hypothyroidism; bb - PSHx: 20:38 Colostomy reversal; bb - Immunization history:: Client reports having NOT received the Covid vaccine. - Social history:: Smoking status: Patient/guardian denies using tobacco, Stopped _ months ago 2. Screenin:13 Abuse screen: Denies threats or abuse. Denies injuries from another. Nutritional ab2 screening: Had unintentional weight loss of 10 pounds or more. Has had N/V for 3 or more days. Tuberculosis screening: No symptoms or risk factors identified. Fall Risk None identified. Assessment: 21:11 General: Appears in no apparent distress. Behavior is calm, cooperative, appropriate ab2 for age. Pain: Complains of pain in abdomen Pain does not radiate. Pain currently is 7 out of 10 on a pain scale. Neuro: No deficits noted. 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 Speech is normal, Facial symmetry appears normal. Cardiovascular: No deficits noted. Denies chest pain, shortness of breath, Heart tones S1 S2 present Patient's skin is warm and dry. Chest pain is denied. Respiratory: No deficits noted. Airway is patent. GI: Abdomen is round non-distended, Bowel sounds present X 4 quads. Abdomen is tender to palpation in left upper quadrant and left lower quadrant Guarding noted Reports lower abdominal pain, intolerance of fluids, intolerance of food, nausea, pt had previous colostomy reversal. : No deficits noted. No signs and/or symptoms were reported regarding the genitourinary system. EENT: No deficits noted. No signs and/or symptoms were reported regarding the EENT system. Derm: No deficits noted. No signs and/or symptoms reported regarding the dermatologic system. Musculoskeletal: No deficits noted. No signs and/or symptoms reported regarding the musculoskeletal system. 23:18 Reassessment: Patient is alert, oriented x 3, equal unlabored respirations, skin bb warm/dry/pink. pt states she is feeling better pain is now 2/10. IV site intact, patent, with fluids infusing. 11/20 00:19 Reassessment: report called to Wero TENORIO for room 208. Pt is A\\T\\O x 4, resp unlabored bb states pain has improved, IV site intact, patent, no erythema or edema noted. Vital Signs: 11/19 20:34 BP 144 / 91; Pulse 91; Resp 18 S; Temp 98.1(TE); Pulse Ox 99% on R/A; Weight 62.6 kg bb (R); Height 5 ft. 4 in. (162.56 cm) (R); Pain 10/10; 21:36 BP 132 / 74; Pulse 84; Resp 17; Pulse Ox 97% on R/A; Pain 4/10; ab2 23:19 BP 135 / 82; Pulse 81; Resp 16 S; Pulse Ox 100% on R/A; Pain 2/10; bb 20:34 Body Mass Index 23.69 (62.60 kg, 162.56 cm) bb ED Course: 20:16 Patient arrived in ED. bp1 20:38 Triage completed. bb 20:38 Arm band placed on Patient placed in an exam room, on a stretcher, on pulse oximetry. bb 20:52 Arvind George MD is Attending Physician. kdr 20:56 John James is Primary Nurse. ab2 21:11 Basic Metabolic Panel Sent. ab2 21:11 CBC with Diff Sent. ab2 21:11 Hepatic Function Sent. ab2 21:11 Lipase Sent. ab2 21:11 COVID-19/FLU A+B (Document "Date of Onset" if Symptomatic) Sent. ab2 21:14 Patient has correct armband on for positive identification. Bed in low position. Side ab2 rails up X2. 21:14 No provider procedures requiring assistance completed. Maintain EMS IV. Dressing ab2 intact. Site clean \\T\\ dry. IV is patent, Flushed right antecubital peripheral line. 21:52 CT Abd/Pelvis - IV Contrast Only In Process Unspecified. EDMS 22:38 Jraed Santos MD is Hospitalizing Provider. kdr 23:20 Patient admitted, IV remains in place. bb Administered Medications: 21:36 Drug: Pepcid (famotidine) 20 mg Route: IVP; Site: right antecubital; ab2 23:22 Follow up: Response: No adverse reaction bb 21:36 Drug: NS 0.9% 500 ml Route: IV; Rate: bolus; Site: right antecubital; ab2 23:22 Follow up: IV Status: Completed infusion; IV Intake: 500ml bb 21:36 Drug: Zofran (Ondansetron) 4 mg Route: IVP; Site: right antecubital; ab2 23:22 Follow up: Response: No adverse reaction bb 21:36 Drug: morphine 4 mg Route: IVP; Site: right antecubital; ab2 23:22 Follow up: Response: No adverse reaction; Pain is decreased; RASS: Alert and Calm (0) janene 11/20 00:07 Drug: morphine 2 mg Route: IVP; Site: right antecubital; bb Intake: 11/19 23:22 IV: 500ml; Total: 500ml. janene Outcome: 22:39 Decision to Hospitalize by Provider. sonny 11/20 00:19 Admitted to Tele accompanied by tech, via wheelchair, room 208, with chart, Report bb called to [facility] TENORIO Condition: stable Instructed on the need for admit. 00:21 Patient left the ED. janene Signatures: Dispatcher [employer] EDMS Arvind George MD MD kdr Ballard, Brenda RN RN Mildred Quintana Alexis ab2
--- NOTE | 2021-11-19 23:24 | P.HP ---
Certification for Inpatient Patient admitted to: Inpatient With expected LOS: >2 Midnights Patient will require the following post-hospital care: None Practitioner: I am a practitioner with admitting privileges, knowledge of patient current condition, hospital course, and medical plan of care. Services: Services provided to patient in accordance with Admission requirements found in Title 42 Section 412.3 of the Code of Federal Regulations Patient History Date of Service: 11/19/21 Primary Care Provider: Dr. May Reason for admission: Small obstruction History of Present Illness: 65-year-old female with history of hypertension, ostomy with reversal on September 26 presents emergency department for abdominal pain, n ausea/vomiting. Patient reports ever since her reversal on September 26 she been having problems with intermittent abdominal pain and nausea reports last bowel movement was 2 days ago. Patient was evaluated in the emergency department had CT with IV contrast which demonstrated moderate partial small bowel obstruction likely caused by 5 cm thickened small intestine in the inferior left pelvis in a ddition to a 33 x 20 mm fluid and air collection adjacent to surgical clips in the region of the cecum. Labs were significant for white blood cell count of 11. Case was discussed with general surgeon by emergency department provider who recommends admission, n.p.o., IVF, IV antibiotics and test for C. difficile. Patient with mild generalized abdominal tenderness does report passing flatus still. Will admit for further evaluation and management. Allergies Penicillins Allergy (Intermediate, Verified 09/26/21 10:21) Hives/Rash codeine [Codeine] Adverse Reaction (Mild, Verified 09/26/21 10:21) Nausea/Vomiting morphine Adverse Reaction (Verified 09/26/21 10:21) HALLUCINATIONS Home Medications: Levothyroxine Sodium 25 mcg PO DAILY 10/04/19 Azelastine HCl 1 gtt EACH EYE BID 07/06/21 Lisinopril [Zestril] 30 mg PO BID 07/06/21 - Past Medical/Surgical History Diabetic: No -: HYPERTENSION -: HYPOTHYROID -: GALLSTONES, NO SURGERY -: COLOSTOMY 2018 -: Colostomy reversal 2020 Psychosocial/ Personal History: Patient lives at home, alone - Family History Mother -: Cancer Father Notes: HEMOCHROMATOSIS - Social History Alcohol use: No CD- Drugs: No Caffeine use: Yes Review of Systems 10-point ROS is otherwise unremarkable Gastrointestinal: Nausea, Abdominal Pain Physical Examination - Physical Exam General: Alert, In no apparent distress, Oriented x3 HEENT: Atraumatic, PERRLA, Mucous membr. moist/pink, EOMI, Sclerae nonicteric Neck: Supple, 2+ carotid pulse no bruit, No LAD, Without JVD or thyroid abnormality Respiratory: Clear to auscultation bilaterally, Normal air movement Cardiovascular: Regular rate/rhythm, Normal S1 S2 Gastrointestinal: Hypoactive, Tenderness (Mild generalized abdominal pain) Musculoskeletal: No tenderness Integumentary: No rashes Neurological: Normal speech, Normal strength at 5/5 x4 extr, Normal tone, Normal affect - Studies Laboratory Data (last 24 hrs) 11/19/21 21:07: WBC 11.00 H, Hgb 12.3, Hct 38.0, Plt Count 345 11/19/21 21:07: Sodium 136, Potassium 3.8, BUN 8, Creatinine 0.99, Glucose 147 H, Total Bilirubin 0.3, AST 19, ALT 21, Alkaline Phosphatase 74, Lipase 42 L Assessment and Plan - Plan Assessment: Partial small bowel obstruction history of ostomy with reversal Hypertension Hypothyroidism Plan: Partial small bowel obstruction history of ostomy with reversal: NPO, IVF, IV antibiotics, as needed pain medications encourage ambulation. General surgery consulted. Last bowel movement 11/17/2020 still passing gas. Hypertension: Provide medication as needed IV for now as patient is NPO. Hypothyroidism: Obtain and continue medications when appropriate. DVT PPX: SCD Code status: Full Discharge Plan: Home Plan to discharge in: 72 Hours - Advance Directives Does patient have a Living Will: No Does patient have a Durable POA for Healthcare: No - Code Status/Comfort Care Code Status Assessed: Yes (Full code) Critical Care: No Time Spent Managing Pts Care (In Minutes): 55
[2021-11-19 23:54] LABS: SARS-COV-2 RT PCR NEGATIVE (NEGATIVE)
[2021-11-20] MEDS ORDERED: MORPHINE 2 MG/ML SYR ONE (00:09)
[2021-11-20] MEDS: METRONIDAZOLE 500mg IVPB 500 MG/100 ML BAG IV SCH ×3 (01:10→18:07)
[2021-11-20] MEDS: ONDANSETRON 4 MG/2 ML VIAL IV PRN ×2 (01:10→09:22)
[2021-11-20] MEDS: D5 0.45 NS 1,000 ML IV SCH ×3 (01:11→20:35)
[2021-11-20 01:43] VITALS: BMI 24.7
[2021-11-20] MEDS ORDERED: HYDROMORPHONE HCL 0.5 MG/0.5 ML INJ IV ONE (02:30)
[2021-11-20 03:01] LABS: Urine Appearance CLEAR (Clear); Urine Bilirubin NEGATIVE (Negative); Urine Blood NEGATIVE (Negative); Urine Color YELLOW (Yellow); Urine Glucose NEGATIVE (Negative); Urine Protein NEGATIVE (Negative); Urine Specific Gravity >=1.030 (1.005-1.030); Urine Urobilinogen 0.2 mg/dL (0.2-1.0)
[2021-11-20] MEDS: DIPHENHYDRAMINE 50 MG/ML VIAL IV PRN ×3 (03:04→20:59)
[2021-11-20 03:08] LABS: Urine Microscopic Reflex NO UMIC
--- NOTE | 2021-11-20 05:51 | P.PN ---
Date of Service: 11/20/21 Subjective: Had an episode of emesis when she was first brought to the floor Reports feeling her abdomen is more bloated, and more painful Passed some flatus this morning ROS: 10 point ROS as noted above, otherwise negative Physical exam GEN: Alert, oriented, appears uncomfortable HEENT: Normal conjunctiva, sclera anicteric CV: Regular rate and rhythm, no edema Pulm: Nonlabored respirations on room air ABD: Mildmoderate distention, diffuse tenderness, most tender in lower abdomen MSK: No joint tenderness Neuro: Normal speech, normal affect Problem List Partial small bowel obstruction history of ostomy with reversal Hypertension Hypothyroidism #Partial small bowel obstruction history of ostomy with reversal: 33 x 20 mm fluid and air collection adjacent to surgical clips in the region of the cecum is nonspecific. Could be a chronic walled off leak vs postop sterile fluid collection vs small abscess Continue n.p.o., IV fluids, IV antibiotics Pain medication as needed Given episode of emesis and increased distention, NG tube to LIWS ordered General surgery consulted #Hypertension: IV medication as needed #Hypothyroidism: Obtain and continue medications when appropriate. VTE: SCDs given possibility of surgey Code: full Dispo: Likely home in ~2-3 days Time Spent Managing Pts Care (In Minutes): 35
[2021-11-20 06:19] LABS: Absolute Lymphocytes (CBC) 1.9 K/uL (0.7-4.9); Hematocrit 36.1 % (36.0-45.0); Lymphocytes % 17.3 % (15.3-44.8); MPV 9.1 fL (7.6-11.3); RBC Red Blood Cell Count 3.87 M/uL (3.86-4.86)
[2021-11-20 06:36] LABS: Albumin 2.5 g/dL (3.4-5.0); Bilirubin Total 0.5 mg/dL (0.2-1.0); Magnesium 2.3 mg/dL (1.8-2.4); Potassium 3.5 mmol/L (3.5-5.1); Protein, Total 6.3 g/dL (6.4-8.2)
[2021-11-20] MEDS: MORPHINE 2 MG/ML SYR IV PRN ×2 (07:27→18:07)
[2021-11-20] MEDS ORDERED: KCL 20 MEQ/100 mL IVPB 20 MEQ/100 ML BAG IV SCH (09:00)
[2021-11-20] MEDS: CIPROFLOXACIN 400mg IV 400 MG/200 ML BAG IV SCH ×2 (09:23→20:41)
[2021-11-20] MEDS ORDERED: CEPACOL LOZENGES PO PRN (17:08)
--- NOTE | 2021-11-20 17:33 | P.CNS ---
Date of Consult: 11/20/21 PC: This 65-year-old female presented to the emergency room with severe abdominal pain for diagnosis and treatment. HPC: Patient had recently undergone a colostomy takedown secondary to complications from diverticular disease. She has been having intermittent abdominal pain over the last few weeks. She was admitted at another facility approximately 2 weeks ago, and discharged on antibiotics. She presents now to our facility. She says she is having pain immediately after she eats. Describes the pain is severe, located down in the true pelvis. Has not had any good bowel movements for the last week, but has been on mainly a liquid diet. She has come to the emergency room on 2 separate occasions, but left due to long wait times. PSHx: Exploratory laparotomy with colostomy takedown, colostomy for complications of diverticulitis PMHx: Negative Social Hx: Smokes about a pack of cigarettes a day Sys R: No cough, wheeze, shortness of breath. No chest pain or palpitations. Denies any urinary complaints O/E: Awake alert uncomfortable, vital signs are stable. Nasogastric tube in place with minimal out NG tube. HEENT: PERRL Chest: Chest movement equal bilaterally Abd: Soft nontender mildly tympanic in the lower abdomen [place]: Negative Data: 11,000 white count, CT scan shows possible partial small bowel obstruction Impression: Partial small bowel obstruction Plan: Patient has had a nasogastric tube in today. Has not had much out through the nasogastric tube. We will give her some mineral oil tonight. Will reassess in the a.m. I shall review the films with the radiologist and see if there is a way we can better delineate this partial small bowel obstruction in her pelvis. It is possibility that she may require exploratory laparoscopy or laparotomy. I have discussed this with the patient. She understands and is content with this plan. Also waiting for a stool culture rule out C. difficile. [Has not had any bloody or mucousy bowel movements.]
[2021-11-20] MEDS ORDERED: MINERAL OIL 30 ML UCUP PO ONE (18:00)
[2021-11-21] MEDS: MORPHINE 2 MG/ML SYR IV PRN (01:30)
[2021-11-21] MEDS: METRONIDAZOLE 500mg IVPB 500 MG/100 ML BAG IV SCH ×3 (01:33→17:00)
[2021-11-21] MEDS: DIPHENHYDRAMINE 50 MG/ML VIAL IV PRN ×4 (03:26→23:30)
[2021-11-21] MEDS: D5 0.45 NS 1,000 ML IV SCH ×2 (04:31→17:06)
[2021-11-21 06:03] LABS: Absolute Lymphocytes (CBC) 1.6 K/uL (0.7-4.9); Hematocrit 34.2 % (36.0-45.0); Lymphocytes % 11.6 % (15.3-44.8); MPV 8.6 fL (7.6-11.3); RBC Red Blood Cell Count 3.68 M/uL (3.86-4.86)
--- NOTE | 2021-11-21 06:08 | P.PN ---
Date of Service: 11/21/21 Subjective: Bloating has improved, pain improved Passing flatus, no bowel movement, no emesis NG tube with brown output ROS: 10 point ROS as noted above, otherwise negative Physical exam GEN: Alert, oriented, appears uncomfortable HEENT: Normal conjunctiva, sclera anicteric, NG tube to LIWS CV: Regular rate and rhythm, no edema Pulm: Nonlabored respirations on room air ABD: No distention, minimal tenderness, most in LLq MSK: No joint tenderness Neuro: Normal speech, normal affect Problem List Partial small bowel obstruction history of ostomy with reversal Hypertension Hypothyroidism #Partial small bowel obstruction history of ostomy with reversal: 33 x 20 mm fluid and air collection adjacent to surgical clips in the region of the cecum is nonspecific. Could be a chronic walled off leak vs postop sterile fluid collection vs small abscess Continue n.p.o., IV fluids, IV antibiotics Flagyl will cover for possible C. difficile, Pain medication as needed Given episode of emesis and increased distention, NG tube to LIWS placed in AM of 11/20 General surgery consulted -recommend CT abdomen/pelvis with PO contrast, concerned for c diff send stool studies, covered by flagyl #Hypertension: IV medication as needed #Hypothyroidism: Obtain and continue medications when appropriate. VTE: SCDs given possibility of surgey Code: full Dispo: Likely home in ~2 days Time Spent Managing Pts Care (In Minutes): 35
[2021-11-21 06:17] LABS: Albumin 2.4 g/dL (3.4-5.0); Bilirubin Total 0.5 mg/dL (0.2-1.0); Magnesium 2.1 mg/dL (1.8-2.4); Potassium 3.6 mmol/L (3.5-5.1); Protein, Total 6.1 g/dL (6.4-8.2)
[2021-11-21] MEDS ORDERED: POTASSIUM CL SA 10 MEQ TAB PO ONE (09:00)
[2021-11-21] MEDS: CIPROFLOXACIN 400mg IV 400 MG/200 ML BAG IV SCH ×2 (10:44→17:49)
[2021-11-21] MEDS ORDERED: DIAZEPAM 5 MG TABLET PO PRN (14:14)
[2021-11-21] MEDS ORDERED: KCL 20 MEQ/100 mL IVPB 20 MEQ/100 ML BAG IV SCH (16:00)
--- NOTE | 2021-11-21 21:04 | RAD REPORT ---
EXAM DESCRIPTION: CT - Abdomen Pelvis Wo Contrast - 11/21/2021 8:54 pm CLINICAL HISTORY: Abdominal pain. SBO COMPARISON: <Comparisons> TECHNIQUE: CT imaging of the abdomen and pelvis was performed without contrast. Solid organ and vasc ular assessment is limited due to lack of IV contrast. All CT scans are performed using dose optimization technique as appropriate and may include automated exposure control or mA/KV adjustment according to patient size. FINDINGS: Linear atelectasis is present in both lung bases. The liver, spleen, pancreas, adrenal glands and kidneys are within normal limits for a limited non-co ntrast examination.Small gallstone is likely present in the gallbladder. The majority of the oral contrast administered the patient earlier is in the colon and distal small b owel. A few mildly prominent left-sided small bowel loops are present containing oral contrast and me asuring up to 3.8 cm. Postsurgical changes are present in the posterior pelvis with fat stranding not ed. Moderate aortoiliac atherosclerosis.Moderate lumbosacral degenerative changes. IMPRESSION: The findings are most compatible with moderate small bowel ileus rather than a small bow el obstruction. A limited non-contrast examination was performed as detailed.
[2021-11-21] MEDS: DIAZEPAM 5 MG TABLET PO PRN (21:10)
[2021-11-21] MEDS ORDERED: BISMUTH SUBSALICYL 262MG/15ML-240 ML BTL PO SCH (23:00)
[2021-11-21] MEDS: FAMOTIDINE 20 MG/2 ML VIAL IV SCH (23:30)
[2021-11-21] MEDS: MAGNES/ALUMIN/SIMET 30ML UCUP PO SCH (23:30)
[2021-11-22] MEDS: METRONIDAZOLE 500mg IVPB 500 MG/100 ML BAG IV SCH ×3 (01:59→16:40)
[2021-11-22] MEDS: MAGNES/ALUMIN/SIMET 30ML UCUP PO SCH ×4 (05:29→22:37)
[2021-11-22] MEDS: D5 0.45 NS 1,000 ML IV SCH ×2 (05:30→22:35)
[2021-11-22 06:27] LABS: Absolute Lymphocytes (CBC) 2.1 K/uL (0.7-4.9); Hematocrit 33.3 % (36.0-45.0); MPV 8.6 fL (7.6-11.3); RBC Red Blood Cell Count 3.61 M/uL (3.86-4.86)
[2021-11-22 06:55] LABS: Albumin 2.3 g/dL (3.4-5.0); Bilirubin Total 0.4 mg/dL (0.2-1.0); Magnesium 2.2 mg/dL (1.8-2.4); Potassium 3.3 mmol/L (3.5-5.1); Protein, Total 6.1 g/dL (6.4-8.2)
[2021-11-22] MEDS ORDERED: POTASSIUM CL SA 10 MEQ TAB PO ONE (09:00)
[2021-11-22] MEDS: CIPROFLOXACIN 400mg IV 400 MG/200 ML BAG IV SCH ×2 (09:34→20:39)
[2021-11-22] MEDS: FAMOTIDINE 20 MG/2 ML VIAL IV SCH (09:35)
[2021-11-22 10:48] LABS: C.diff Antigen/Toxin Ag neg : Tox neg (NEG : NEG)
--- NOTE | 2021-11-22 13:46 | P.PN ---
Date of Service: 11/22/21 S: Patient feels better today, no abdominal pain since last night. Started having bowel movements a couple hours after she was given the p.o. contrast. Has had large bowel movements since that time. O: Abdomen soft, not distended mildly tympanic. CT shows resolution of what was thought to be a partial small bowel obstruction, more ileus type picture. Stool was obtained for culture. A: Ileus appears to be resolving P: Patient's ileus appears to be resolving. She is asking for food and we will advance her diet. White cell count stable. Clinically much improved. Anticipate discharge soon.
--- NOTE | 2021-11-22 14:21 | P.PN ---
Subjective Date of Service: 11/22/21 Primary Care Provider: Dr. May Chief Complaint: Small obstruction Patient reports multiple bowel movements earlier this morning. She denies abdominal pain. She states she feels hungry and wants to eat. Physical Examination - Vital Signs Temperature: 98.1 F Blood Pressure: 135/60 Pulse: 90 Respirations: 17 Pulse Ox (%): 97 Assessment And Plan - Plan Physical exam GEN: Alert, oriented, appears uncomfortable HEENT: Normal conjunctiva, sclera anicteric, NG tube to LIWS CV: Regular rate and rhythm, no edema Pulm: Nonlabored respirations on room air ABD: No distention, no tenderness. Normal bowel sounds. MSK: No joint tenderness Neuro: Normal speech, normal affect Problem List Partial small bowel obstruction history of ostomy with reversal Hypertension Hypothyroidism Partial small bowel obstruction history of ostomy with reversal: 33 x 20 mm fluid and air collection adjacent to surgical clips in the region of the cecum is nonspecific. Patient reports multiple bowel movement. NG tube removed. symptoms significantly improved. Dr. Houston is managing. Dr. Houston concern for C. difficile infection. Stool for C. difficile is negative. Patient started on a diet. Continue IV antibiotics Flagyl will cover for possible C. difficile, Pain medication as needed Hypertension: Restart home dose lisinopril for hypertension. Hypothyroidism: Continue home dose Synthroid Possible discharge in a.m. if patient tolerates diet.
[2021-11-22] MEDS: MORPHINE 2 MG/ML SYR IV PRN (20:30)
[2021-11-22] MEDS: DIPHENHYDRAMINE 50 MG/ML VIAL IV PRN (22:19)
[2021-11-22] MEDS: DIAZEPAM 5 MG TABLET PO PRN (22:19)
[2021-11-23] MEDS: MORPHINE 2 MG/ML SYR IV PRN ×2 (00:27→04:03)
[2021-11-23] MEDS: METRONIDAZOLE 500mg IVPB 500 MG/100 ML BAG IV SCH ×3 (00:27→17:37)
[2021-11-23] MEDS: MAGNES/ALUMIN/SIMET 30ML UCUP PO SCH ×4 (04:02→22:54)
[2021-11-23] MEDS: D5 0.45 NS 1,000 ML IV SCH ×2 (04:12→09:37)
[2021-11-23] MEDS: ONDANSETRON 4 MG/2 ML VIAL IV PRN (04:13)
[2021-11-23 06:13] LABS: Absolute Lymphocytes (CBC) 1.3 K/uL (0.7-4.9); Hematocrit 35.3 % (36.0-45.0); Lymphocytes % 15.5 % (15.3-44.8); MPV 8.8 fL (7.6-11.3); RBC Red Blood Cell Count 3.79 M/uL (3.86-4.86)
[2021-11-23 06:21] LABS: Potassium 3.4 mmol/L (3.5-5.1)
[2021-11-23] MEDS ORDERED: POTASSIUM CL SA 10 MEQ TAB PO ONE (09:00)
[2021-11-23] MEDS: CIPROFLOXACIN 400mg IV 400 MG/200 ML BAG IV SCH ×2 (09:36→20:23)
[2021-11-23] MEDS: FAMOTIDINE 20 MG/2 ML VIAL IV SCH (09:38)
--- NOTE | 2021-11-23 14:09 | P.PN ---
Date of Service: 11/23/21 S: Patient states she feels much better today. Had been doing well yesterday. Ate some regular food however and had severe cramping abdominal pain for a period of about 2 to 3 hours. O: Clinically patient looks much improved, interacting, vital signs are stable. Abdomen is soft, nontender today. A: Patient is not obstructed, but does have considerable amount of discomfort when eating her food most likely due to adhesions. P: At the current time patient does not require surgical intervention. However I am concerned that she is going to have issues with ongoing abdominal pain secondary to adhesions. I am not certain that operating on her at this time will necessarily improve these. I have discussed this with her at length. She understands, and is actually anxious to get home. She is able to manage on a full liquid diet. But she understands however in the future she may require another laparoscopy or laparotomy. We will keep her 1 more day, and see how she is in AM.
--- NOTE | 2021-11-23 14:55 | P.PN ---
Subjective Date of Service: 11/23/21 Primary Care Provider: Dr. May Chief Complaint: Small obstruction Patient reports abdominal pain with solid diet No BM since yesterday. States he has been passing flatus. Physical Examination - Vital Signs Temperature: 98.2 F Blood Pressure: 148/85 Pulse: 92 Respirations: 17 Pulse Ox (%): 98 Assessment And Plan - Plan Physical exam GEN: Alert, oriented, appears uncomfortable HEENT: Normal conjunctiva, sclera anicteric, NG tube to LIWS CV: Regular rate and rhythm, no edema Pulm: Nonlabored respirations on room air ABD: No distention, no tenderness. Normal bowel sounds. MSK: No joint tenderness Neuro: Normal speech, normal affect Problem List Partial small bowel obstruction history of ostomy with reversal Hypertension Hypothyroidism Partial small bowel obstruction history of ostomy with reversal: 33 x 20 mm fluid and air collection adjacent to surgical clips in the region of the cecum is nonspecific. Had BM. NG tube removed. Patient not tolerating solid diet. Diet changed to liquid. Stool for C. difficile is negative. Continue IV antibiotics Pain medication as needed. General surgery-Dr. Houston is following. Possible discharge in a.m. Hypertension: Restart home dose lisinopril for hypertension. Hypothyroidism: Continue home dose Synthroid
[2021-11-23 14:58] LABS: Potassium 4.5 mmol/L (3.5-5.1)
[2021-11-23 16:14] VITALS: O2SAT 98
[2021-11-23] MEDS: DIPHENHYDRAMINE 50 MG/ML VIAL IV PRN (20:24)
[2021-11-23] MEDS: DIAZEPAM 5 MG TABLET PO PRN (22:54)
[2021-11-24] MEDS: METRONIDAZOLE 500mg IVPB 500 MG/100 ML BAG IV SCH ×2 (00:34→09:00)
[2021-11-24] MEDS: MAGNES/ALUMIN/SIMET 30ML UCUP PO SCH (04:34)
[2021-11-24 06:14] LABS: Absolute Lymphocytes (CBC) 1.8 K/uL (0.7-4.9); Hematocrit 38.4 % (36.0-45.0); Lymphocytes % 19.3 % (15.3-44.8); MPV 9.3 fL (7.6-11.3); RBC Red Blood Cell Count 4.15 M/uL (3.86-4.86)
[2021-11-24 06:27] LABS: BUN Blood Urea Nitrogen 3 mg/dL (7-18); Bicarbonate 26 mmol/L (21-32); Glucose Level 93 mg/dL (74-106); Potassium 3.8 mmol/L (3.5-5.1); Sodium Level 135 mmol/L (136-145)
[2021-11-24] MEDS ORDERED: KCL 20 MEQ/100 mL IVPB 20 MEQ/100 ML BAG IV SCH (09:00)
[2021-11-24] MEDS: CIPROFLOXACIN 400mg IV 400 MG/200 ML BAG IV SCH (09:00)
[2021-11-24] MEDS: FAMOTIDINE 20 MG/2 ML VIAL IV SCH (09:52)
--- NOTE | 2021-11-24 12:04 | P.DS ---
Admission Date: 11/19/21 Discharge Date: 11/24/21 Primary Care Provider: Dr. May Disposition: ROUTINE DISCHARGE Discharge Condition: FAIR Reason for Admission: Small obstruction - Problems (1) Partial bowel obstruction Current Visit: Yes Status: Acute (2) Colonic mass Current Visit: No Status: Acute (3) Hypothyroidism Current Visit: No Status: Acute Brief History of Present Illness: 65-year-old female with history of hypertension, ostomy with reversal on September 26 presents emergency department for abdominal pain, nausea/vomiting. Patient reports ever since her reversal on September 26 she been having problems with intermittent abdominal pain and nausea reports last bowel movement was 2 days ago. Patient was evaluated in the emergency department had CT with IV contrast which demonstrated moderate partial small bowel obstruction likely caused by 5 cm thickened small intestine in the inferior left pelvis in addition to a 33 x 20 mm fluid and air collection adjacent to surgical clips in the region of the cecum. Labs were significant for white blood cell count of 11. Case was discussed with general surgeon by emergency department provider who recommended admission, n.p.o., IVF, IV antibiotics and test for C. difficile. Patient admitted for further management. Hospital Course: Problem List Partial small bowel obstruction history of ostomy with reversal Hypertension Hypothyroidism Partial small bowel obstruction history of ostomy with reversal: 33 x 20 mm fluid and air collection adjacent to surgical clips in the region of the cecum is nonspecific. Patient admitted to the medical floor and started on supportive measures and IV Cipro and Flagyl. Seen by general surgery-Dr. Houston who recommended conservative management with antibiotics. Stool for C. difficile checked was negative. Had NG tube inserted which was subsequently removed after patient had a bowel movement. She continues to have multiple bowel movement until they were loose. Patient tolerated liquid diet At this point patient is deemed stable for discharge per Dr. Houston. He will follow-up with him next week. Patient prescribed oral Flagyl and Cipro Hypertension: Continued home dose lisinopril for hypertension. Hypothyroidism: Continued home dose Synthroid Vital Signs/Physical Exam: Temp Pulse Resp BP Pulse Ox 97.8 F 100 H 18 125/82 98 11/24/21 08:00 11/24/21 08:00 11/24/21 08:00 11/24/21 08:00 11/24/21 08:00 General: Alert, In no apparent distress, Oriented x3 HEENT: Mucous membr. moist/pink Neck: JVD not distended Respiratory: Clear to auscultation bilaterally, Normal air movement Cardiovascular: No edema, Normal pulses, Normal S1 S2 Gastrointestinal: Normal bowel sounds, Soft and benign, Non-distended, No tenderness Musculoskeletal: No swelling Integumentary: No rashes, No erythema, No cyanosis Neurological: Normal strength at 5/5 x4 extr Laboratory Data at Discharge: WBC 9.50 K/uL (4.3-10.9) 11/24/21 05:35 Hgb 12.4 g/dL (12.0-15.0) 11/24/21 05:35 Hct 38.4 % (36.0-45.0) 11/24/21 05:35 Plt Count 306 K/uL (152-406) 11/24/21 05:35 Sodium 135 mmol/L (136-145) L 11/24/21 05:35 Potassium 3.8 mmol/L (3.5-5.1) 11/24/21 05:35 BUN 3 mg/dL (7-18) L 11/24/21 05:35 Creatinine 0.65 mg/dL (0.55-1.3) 11/24/21 05:35 Glucose 93 mg/dL (74-106) 11/24/21 05:35 Magnesium 2.2 mg/dL (1.8-2.4) 11/22/21 06:14 Total Bilirubin 0.4 mg/dL (0.2-1.0) 11/22/21 06:14 AST 12 U/L (15-37) L 11/22/21 06:14 ALT 18 U/L (12-78) 11/22/21 06:14 Alkaline Phosphatase 77 U/L (45-117) 11/22/21 06:14 Lipase 42 U/L (73-393) L 11/19/21 21:07 Home Medications: Levothyroxine Sodium 25 mcg PO DAILY 10/04/19 Azelastine HCl 1 gtt EACH EYE BID 07/06/21 Lisinopril [Zestril] 30 mg PO BID 07/06/21 Ciprofloxacin HCl [Cipro 500 MG Tablet] 500 mg PO BID #10 tab 11/24/21 metroNIDAZOLE [Flagyl] 500 mg PO Q8H #15 tablet 11/24/21 New Medications: Ciprofloxacin HCl [Cipro 500 MG Tablet] 500 mg PO BID #10 tab metroNIDAZOLE [Flagyl] 500 mg PO Q8H #15 tablet Physician Discharge Instructions: Progress from full liquid diet and advance as tolerated. Diet: AHA Activity: Ad rosalina Followup: Boris Houston MD [ACTIVE - CAN ADMIT] - 1 Week (On Sunday- 11/29/2021.) NONE,NONE [Primary Care Provider] - Time spent managing pt's care (in minutes): 36
[2021-11-24 12:24] VITALS: BP 110/79; TEMP 97.7
--- NOTE | 2021-11-24 13:08 | P.PN ---
Date of Service: 11/24/21 S: Patient feels much better today, has been up ambulating. Tolerating a diet. Minimal bowel cramping today. Has been having good bowel movements. Voiding on her own. Started get some energy back and anxious to depart. O: Abdomen soft, no tenderness. Not distended. A: Partial small bowel/ileus appears to have resolved P: DC IV, DC home. Have her see me next week in my office. Should she have any questions or problems, she will return to the emergency room or contact me. She is happy with this plan.
[2021-11-24] MEDS ORDERED: metroNIDAZOLE 500 MG TABLET PO SCH (14:00)
[2021-11-24] MEDS ORDERED: FAMOTIDINE 20 MG TAB PO SCH (21:00)
[2021-11-24] MEDS ORDERED: CIPROFLOXACIN HCL 500 MG TAB PO SCH (21:00)
== END 2021-11-24 13:06 | disposition home or self-care (01) | DRG 390 ==
LOC: ER 20:13 → ERHOLD 23:59 → 2ND 11-20 00:28
PROVIDERS: ADMIT Hospitalist; ATTEND Internal Medicine
DX: K56.51 Intestinal adhesions [bands], with partial obstruction (principal); I10 Essential (primary) hypertension; E03.9 Hypothyroidism, unspecified; F17.210 Nicotine dependence, cigarettes, uncomplicated; K56.7 Ileus, unspecified; Z88.0 Allergy status to penicillin; Z79.01 Long term (current) use of anticoagulants; Z79.890 Hormone replacement therapy; Z79.899 Other long term (current) drug therapy; Z86.73 Personal history of transient ischemic attack (TIA), and cerebral infarction without residual deficits; Z88.5 Allergy status to narcotic agent; Z93.3 Colostomy status; Z20.822 Contact with and (suspected) exposure to COVID-19; Z60.2 Problems related to living alone
CPT/HCPCS: 0240U; 36415; 74176; 74177; 80048; 80053; 80076; 81003; 83690; 83735; 85025; 87324; 87449; 96361; 96374; 96375; 99285; J0744; J1170; J1200; J2270; J2405; J3480; J7040; J7799; Q9967

== ENCOUNTER 2023-01-12 17:18 | Emergency (ER) | payer OTHER ==
--- OUTSIDE RECORDS SUMMARY | 2023-01-12 17:36 | XMS REPORT | Continuity of Care Document ---
:1955 Author Organization [facility] t Address [address] [facility] [place] [address] Care Team Providers Name Role Phone LIDIA GARCIA Attending Clinician Unavailable Lidia Garcia MD Attending Clinician Only, Adc Test Attending Clinician Unavailable LIDIA GARCIA Admitting Clinician Unavailable Lidia Garcia MD Admitting Clinician Payers Payer Name Policy Type Policy Number Effective Date Expiration Date S ource [place]ICAID [place] [id number] 2020 00:00:00 MEDICARE PART A [id number] 2018 00:00:00 Problems Condition Condition Condition Status Onset Resolution Last Treating Co mments Source Name Details Category Date Date Treatment Clinician Date No known No known Disease Unive rs active active ity of problems problems [facility] Allergies, Adverse Reactions, Alerts Allergy Allergy Status Severity Reaction(s) Onset Inactive Treating Comm ents Source Name Type Date Date Clinician Codeine Propensi Active Nausea 2016-11 Univers ty to and/or 11-14 ity of adverse Vomiting 00:00: [place] reaction 00 [facility] [place] Propensi Active Rash 2016-11 Univer s in ty to 11-14 ity of adverse 00:00: [place] reaction 00 [facility] CODEINE DRUG Active N/V 2016-11 Univers INGREDI 11-14 ity of 00:00: [place] 00 [facility] PENICILL DRUG Active Rash 2016-11 Univers IN INGREDI 11-14 ity of 00:00: [address] Social History Social Habit Start Date Stop Date Quantity Comments Source Sex Assigned At [facility] Medical Branch Exposure to Not sure [facility] SARS-CoV-2 (event) Medica l Branch Tobacco use and 2020-08-24 2020-08-24 Never used [facility] [place] exposure 00:00:00 00:00:00 [facility] Branch Smoking Status Start Date Stop Date Source Current every day smoker 2020-08-24 00:00:00 Uni versity [facility] Medications Ordered Filled Start Stop Current Ordering Indication Dosage Frequency Signature Comments Components Source Medication Medication Date Date Medication? Clinician (SIG) Name Name lisinopriL 2019-11 Yes 30mg Take 30 mg U nivers 30 mg 0-15 by mouth ity of tablet 14:52: daily. [address] Levothyroxi 2019-11 Yes Take by Uni vers ne 25 mcg 0-15 mouth. ity of capsule 14:52: [address] azelastine 2019-11 Yes 1[drp] Place 1 Un meliza 0.05 % 0-15 Drop in ity of ophthalmic 14:52: [place] solution 05 2 (two) Medical times Branch daily. lactated 2019-11 Yes 1000mL at 75 [...] by mouth ity of tablet 19:43: daily. [place] 58 Medical Branch Levothyroxi 2019-11 Yes Take by Uni vers ne 25 mcg 0-13 mouth. ity of capsule 19:43: [address] Branch azelastine 2019-11 Yes 1[drp] Place 1 Un meliza 0.05 % 0-13 Drop in ity of ophthalmic 19:43: [place] eyes [place] solution 58 2 (two) Medical times Branch daily. sulfamethox Yes [id number] 1{tbl} Take 1 Univers azole-trime 4-13 tablet by ity of thoprim 00:00: mouth [place] 800-160 mg 00 every 12 Medic al per tablet (twelve) Branc h hours. fluconazole Yes [id number] Take one Univers 150 mg 4-13 tablet PO ity of tablet 00:00: today, then one Medical tablet PO Branch in 10 days, at the end of antibiotic treatment. sulfamethox Yes [id number] 1{tbl} Take 1 Univers azole-trime 4-13 tablet by ity of thoprim 00:00: mouth [place] 800-160 mg 00 every 12 Medic al per tablet (twelve) Branc h hours. fluconazole Yes [id number] Take one Univers 150 mg 4-13 tablet PO ity of tablet 00:00: today, then one Medical tablet PO Branch in 10 days, at the end of antibiotic treatment. cloniDINE 2016-11 Yes .1mg Take 1 Univer s 0.1 mg 1-03 tablet by ity of tablet 00:00: mouth 2 00 (two) Medical times Branch daily. cloniDINE 2016-11 Yes .1mg Take 1 Univer s 0.1 mg 1-03 tablet by ity of tablet 00:00: mouth 2 00 (two) Medical times Branch daily. Vital Signs Vital Name Observation Time Observation Value Comments Source Systolic blood 2020-08-26 14:30:00 119 mm[Hg] Univer sity of pressure [facility] Diastolic blood 2020-08-26 14:30:00 83 mm[Hg] Unive rsity of pressure [facility] Heart rate 2020-08-26 14:30:00 87 /[facility] Respiratory rate 2020-08-26 14:30:00 15 /min Univ ersity of [facility] Oxygen saturation in 2020-08-26 14:30:00 95 /min [facility] Arterial blood by [facility] Pulse oximetry [place] Body temperature 2020-08-26 14:15:00 [facility].17 [facility] weight 2020-08-26 13:16:00 72.122 kg [facility] BMI 2020-08-26 13:16:00 27.28 kg/m2 [facility] Body height 2020-08-25 18:23:00 162.6 cm [facility] Procedures Procedure Date / Time Performing Clinician Source Performed COLONOSCOPY (ENDO) 2020-08-26 12:05:21 Mendez May [facility] PATIENT FINANCIAL 2020-08-25 18:42:58 Doctor Unassigned, [facility] POLICY [place] [facility] NO SHOW OR MISSED 2020-08-25 17:55:08 Doctor Unassigned, [facility] APPOINTMENT POLICY [place] [facility] h ACKNOWLEDGEMENT CONSENT/REFUSAL FOR 2020-08-25 17:54:49 Doctor Unassdipti, [facility] DIAGNOSIS AND TREATMENT [place] [facility] [place] ASSIGNMENT OF BENEFITS 2020-08-25 17:54:30 Doctor Unassigned, [facility] [place] [facility] CONSENT/REFUSAL FOR 2020-08-25 17:54:14 Doctor Unadipti, [facility] DIAGNOSIS AND TREATMENT [place] [facility] ASSIGNMENT OF BENEFITS 2020-08-25 17:54:01 Doctor Unassigned, [facility] [place] [facility] DSU PRE-OP 2020-08-20 05:01:00 Doctor Ev, [facility] [place] [facility] [place] Encounters Start End Encounter Admission Attending Care Care Encounter Source Date/Time Date/Time Type Type Clinicians Facility Department ID 2021-09-09 Outpatient R [facility] RACHEL [id number] Univers 22:56:09 LIDIA Sandoval [facility] 2020-08-26 2020-08-26 [facility] [id number] [facility] 08:03:00 09:45:00 Encounter Lidia sandoval [id number] [place] [id number] [id number] [facility] 071 Branch 2020-08-25 2020-08-25 Outpatient R [facility] [id number] Univers 13:15:00 13:15:00 LIDIA Sandoval [facility] 2020-08-25 2020-08-25 Laboratory Only, Adc Test [facility] [id number] Univers 12:52:17 13:07:17 Only Lidia Garcia [id number] Sg [id number] [facility] [id number] [place] [address] Branch Results This patient has no known results.
--- NOTE | 2023-01-12 18:31 | RAD REPORT ---
EXAM DESCRIPTION: Michelle Single View01/12/2023 6:12 pm CLINICAL HISTORY: Chest pain COMPARISON: 2020 FINDINGS: The lungs appear clear of acute infiltrate. The heart is normal size IMPRESSION: No acute abnormalities displayed
[2023-01-12 18:32] LABS: Urine Blood Negative (Negative); Urine Glucose Negative (Negative); Urine Protein 1+ (Negative); Urine Specific Gravity 1.025 (1.005-1.030); Urine pH 5.5 (5.0-7.0)
[2023-01-12 18:38] LABS: Absolute Lymphocytes (CBC) 1.6 K/uL (0.7-4.9); Hematocrit 46.9 % (36.0-45.0); MCV 91.8 fL (80-100); MPV 8.8 fL (7.6-11.3); RBC Red Blood Cell Count 5.12 M/uL (3.86-4.86)
[2023-01-12 18:40] LABS: Urine Bacteria None Seen /HPF (<20); Urine Mucus Slight /HPF (None Seen); Urine RBC <5 /HPF (None Seen)
[2023-01-12] MEDS ORDERED: NA CHLORIDE 0.9% 500 ML ONE ×2 (19:38→20:35)
[2023-01-12] MEDS ORDERED: FAMOTIDINE 20 MG/2 ML VIAL IV ONE (19:38)
[2023-01-12] MEDS ORDERED: ONDANSETRON 4 MG/2 ML VIAL ONE ×2 (19:38→23:10)
[2023-01-12 20:00] LABS: SARS-COV-2 RT PCR POSITIVE (NEGATIVE)
[2023-01-12 20:11] LABS: Potassium 3.7 mmol/L (3.5-5.1)
[2023-01-12] MEDS ORDERED: ACETAMINOPHEN 500 MG TAB ONE (20:35)
--- NOTE | 2023-01-12 21:21 | RAD REPORT ---
EXAM DESCRIPTION: CT - Abdomen Pelvis Wo Contrast - 01/12/2023 8:56 pm CLINICAL HISTORY: Abdominal pain and vomiting COMPARISON: 2021 TECHNIQUE: Computed axial tomography of the abdomen and pelvis was obtained. IV and oral contrast we re not requested. All CT scans are performed using dose optimization technique as appropriate and may include automated exposure control or mA/KV adjustment according to patient size. FINDINGS: The evaluation of solid organs, vessels and bowel is limited secondary to the lack of con trast administration. A small gallstone. Gallbladder is distended. The liver, spleen, pancreas, adrenals and left kidney appear grossly normal. Right kidney is mildly d iminished in size. No hydronephrosis There is no evidence of diverticulitis. Calcified uterine fibroids are present. No adnexal mass. Postsurgical changes involve the colon. Atherosclerotic disease present IMPRESSION: Cholelithiasis. Gallbladder distention
[2023-01-12 22:36] LABS: Albumin 4.1 g/dL (3.4-5.0); Bilirubin Direct 0.1 mg/dL (0-0.2); Bilirubin Total 0.3 mg/dL (0.2-1.0)
--- NOTE | 2023-01-13 00:12 | ER ---
Nurse's Notes [facility] Name: Claribel Clayton Age: 67 yrs Sex: Female : 1955 Arrival Date: 01/12/2023 Time: 17:24 Bed 6 Private MD: Mendez May H Diagnosis: Nausea with vomiting, unspecified;SARS-associated coronavirus as the cause of diseases classified elsewhere;Calculus of gallbladder and bile duct without cholecystitis with obstruction Presentation: 01/12 17:48 Chief complaint: Patient states: N/V, body aches, chills, fatigue, headache X 3 days. ld1 Coronavirus screen: At this time, the client does not indicate any symptoms associated with coronavirus-19. Ebola Screen: No symptoms or risks identified at this time. Initial Sepsis Screen: Does the patient meet any 2 criteria? No. Patient's initial sepsis screen is negative. Does the patient have a suspected source of infection? No. Patient's initial sepsis screen is negative. Risk Assessment: Do you want to hurt yourself or someone else? Patient reports no desire to harm self or others. Onset of symptoms was January 12, 2023 at 17:49. 17:48 Method Of Arrival: Ambulatory ld1 17:48 Acuity: MARIANNE 3 ld1 Triage Assessment: 17:49 General: Appears in no apparent distress. comfortable, Behavior is calm, cooperative, ld1 appropriate for age. Pain: Denies pain. EENT: No signs and/or symptoms were reported regarding the EENT system. Neuro: Level of Consciousness is awake, alert, obeys commands, Oriented to person, place, time, situation. Cardiovascular: Capillary refill < 3 seconds Patient's skin is warm and dry. Respiratory: Airway is patent Respiratory effort is even, unlabored. GI: Abdomen is flat, non-distended. GI: Reports nausea, vomiting. : No signs and/or symptoms were reported regarding the genitourinary system. Derm: No signs and/or symptoms reported regarding the dermatologic system. Musculoskeletal: No signs and/or symptoms reported regarding the musculoskeletal system. Historical: - Allergies: 17:49 Codeine; ld1 17:49 PENICILLINS; ld1 - PMHx: 17:49 CVA; Hypertension; Hypothyroidism; ld1 - PSHx: 17:49 Colostomy reversal; ld1 - Immunization history:: Adult Immunizations up to date, Client reports receiving the 2nd dose of the Covid vaccine. - Social history:: Smoking status: Patient reports the use of cigarette tobacco products, smokes one-half pack cigarettes per day, Patient/guardian denies using alcohol. Screenin:[facility] ED Fall Risk Assessment (Adult) History of falling in the last 3 months, iw including since admission No falls in past 3 months (0 pts) Confusion or Disorientation No (0 pts) Intoxicated or Sedated No (0 pts) Impaired Gait No (0 pts) Mobility Assist Device Used No (0 pt) Altered Elimination No (0 pt) Score/Fall Risk Level 0 - 2 = Low Risk Oriented to surroundings, Maintained a safe environment, Educated pt \\T\\ family on fall prevention, incl call for assistance when getting out of bed. Abuse screen: Denies threats or abuse. Nutritional screening: No deficits noted. Tuberculosis screening: No symptoms or risk factors identified. Assessment: 19:00 General: Appears uncomfortable, Behavior is calm, cooperative. Pain: Denies pain. iw Neuro: Level of Consciousness is awake, alert, obeys commands. Cardiovascular: Heart tones S1 S2 present Rhythm is regular. Respiratory: Airway is patent Respiratory effort is even, unlabored, Respiratory pattern is regular, symmetrical, Breath sounds are clear bilaterally. GI: Abdomen is round non-distended, Pt is actively vomiting Bowel sounds present X 4 quads. Abd is soft and non tender X 4 quads. Reports nausea, vomiting. : No signs and/or symptoms were reported regarding the genitourinary system. EENT: No signs and/or symptoms were reported regarding the EENT system. Derm: Skin is pink, warm \\T\\ dry. Musculoskeletal: Range of motion: intact in all extremities. 20:10 Reassessment: pt states "I have a really bad headache that is throbbing and won't go mb9 away." Braulio SON Page, notified. 20:36 Reassessment: No changes from previously documented assessment. Patient and/or family mb9 updated on plan of care and expected duration. Pain level reassessed. Patient is alert, oriented x 3, equal unlabored respirations, skin warm/dry/pink. 21:27 Reassessment: Patient and/or family updated on plan of care and expected duration. Pain mb9 level reassessed. Patient is alert, oriented x 3, equal unlabored respirations, skin warm/dry/pink. Patient states feeling better. Patient states symptoms have improved. 23:22 GI: Reports nausea. as6 03/04 00:32 Reassessment: Patient appears in no apparent distress at this time. Patient and/or lg3 family updated on plan of care and expected duration. Pain level reassessed. Patient is alert, oriented x 3, equal unlabored respirations, skin warm/dry/pink. Patient states symptoms have improved. Vital Signs: 03 17:48 BP 119 / 83; Pulse 108; Resp 18; Temp 98.1(TE); Pulse Ox 98% on R/A; Weight 66.22 kg; ld1 Height 5 ft. 4 in. (162.56 cm); Pain 0/10; 19:49 BP 105 / 69; Pulse 78; Resp 16; Pulse Ox 99% ; iw 20:36 BP 132 / 82; Pulse 78; Resp 17; Pulse Ox 98% on R/A; mb9 21:27 BP 133 / 70; Pulse 84; Resp 18; Pulse Ox 99% ; mb9 23:21 BP 132 / 88; Pulse 100; Resp 21 S; Pulse Ox 100% on R/A; as6 17:48 Body Mass Index 25.06 (66.22 kg, 162.56 cm) ld1 ED Course: 17:24 Patient arrived in ED. am2 17:24 Mendez May DO is Private Physician. am2 17:25 Braulio Lopez PA is PHCP. cp 17:25 Cheng Frankel DO is Attending Physician. cp 17:49 Triage completed. ld1 17:49 Arm band placed on right wrist. ld1 17:57 COVID-19/FLU A+B Sent. ld1 18:00 Placed in gown. Bed in low position. Call light in reach. Side rails up X 1. Client iw placed on continuous cardiac and pulse oximetry monitoring. NIBP monitoring applied. front desk monitor on. 18:07 EKG done, by ED staff. tm3 18:16 Matilda Mireles, JONA is Primary Nurse. mb9 18:33 Urine Microscopic Only Sent. mb9 19:05 Chandler Rudolph MD is Attending Physician. cp 19:50 No provider procedures requiring assistance completed. Inserted saline lock: 22 gauge iw in left forearm, using aseptic technique. 23:47 LFT's Sent. mb9 23:47 Lipase Sent. mb9 23:47 LAB Add On Sent. mb9 01/13 00:11 Eitan Almonte MD is Hospitalizing Provider. cp 00:31 Initiated transfer to [facility], spoke with Lynda Mcneill. wm 01:19 Pt accepted for transfer by Radha Albarran \\T\\ [id number]. wm 02:03 Patient transferred, IV remains in place. as6 Administered Medications: 01/12 19:40 Drug: Zofran (Ondansetron) 4 mg Route: IVP; Site: left forearm; iw 20:29 Follow up: Response: No adverse reaction iw 19:47 Drug: Pepcid (famotidine) 20 mg Route: IVP; Site: left forearm; iw 20:29 Follow up: Response: No adverse reaction iw 19:47 Drug: NS 0.9% 500 ml Route: IV; Rate: 500 ml/hr; Site: left forearm; iw 20:35 Follow up: Response: No adverse reaction; IV Status: Completed infusion iw 20:35 Drug: Tylenol 1000 mg Route: PO; iw 21:21 Follow up: Response: No adverse reaction mb9 20:35 Drug: NS 0.9% 500 ml Route: IV; Rate: 500 ml/hr; Site: left forearm; iw 01/13 01:32 Follow up: Response: No adverse reaction; IV Status: Completed infusion; IV Intake: as6 500ml 01/12 23:10 Drug: Zofran (Ondansetron) 4 mg Route: IVP; Site: left forearm; as6 01/13 00:13 Follow up: Response: No adverse reaction as6 01:04 Not Given (Physician Discretion): NS 0.9% 1000 ml IV at 75 ml/hr continuous cp 01:04 Not Given (Physician Discretion): Flagyl (metroNIDAZOLE) 500 mg 100 ml IVPB at 200 cp ml/hr once over 30 mins 01:38 Drug: NS 0.9% 1000 ml Route: IV; Rate: 1 bolus; Site: left forearm; lg3 02:02 Follow up: Response: No adverse reaction; IV Status: Infusion continued upon transfer; as6 IV Intake: 200ml 01:43 Drug: Reglan (metoCLOPramide) 10 mg Route: IVP; Site: left forearm; lg3 02:00 Follow up: Response: No adverse reaction as6 02:00 Drug: Rocephin (cefTRIAXone) 1 grams Route: IV; Rate: calculated rate; Site: left as6 forearm; 02:02 Follow up: Response: No adverse reaction; IV Status: Completed infusion; IV Intake: 10mquw9 02:00 Drug: metroNIDAZOLE 500 mg Volume: 100 ml; Route: IVPB; Infused Over: 30 mins; Site: as6 left forearm; 02:03 Follow up: Response: No adverse reaction; IV Status: Infusion continued upon transfer; as6 IV Intake: 20ml 02:01 Drug: NS 0.9% 1000 ml Route: IV; Rate: 100 ml/hr; Site: left forearm; as6 02:03 Follow up: Response: No adverse reaction; IV Status: Infusion continued upon transfer; as6 IV Intake: 30ml Medication: 01/12 19:49 VIS not applicable for this client. iw Intake: 04 01:32 IV: 500ml; Total: 500ml. as6 02:02 IV: 50ml; Total: 550ml. as6 02:02 IV: 200ml; Total: 750ml. as6 02:03 IV: 20ml; Total: 770ml. as6 02:03 IV: 30ml; Total: 800ml. as6 Outcome: 00:12 Decision to Hospitalize by Provider. cp 00:34 ER care complete, transfer ordered by MD. cp 02:03 Transferred by ground EMS to [facility], Transfer form completed. as6 X-rays sent w/ patient. 02:03 Condition: stable 02:03 Instructed on the need for transfer. 02:03 Patient left the ED. as6 Signatures: Froilan Abel tm3 Hortensia Hernández RN JONA iw Braulio Lopez PA PA cp Hermelinda Soto am2 Suha Tarango RN RN lg3 Lela Brantley RN RN ld1 Nusrat Maldonado Ashby, RN RN as6 Matilda Mireles RN RN mb9
--- NOTE | 2023-01-13 00:13 | EDPHYS ---
Physician Documentation [facility] Name: Claribel Clayton Age: 67 yrs Sex: Female : 1955 Arrival Date: 01/12/2023 Time: 17:24 Bed 6 Private MD: Mendez May H ED Physician Chandler Rudolph HPI: 01/12 18:00 This 67 yrs old Female presents to ER via Ambulatory with complaints of Blood Pressure cp Problem, Nausea/Vomiting. 18:00 The patient presents to the emergency department with nausea, that is moderate, cp vomiting, that is intermittent. 18:00 Onset: The symptoms/episode began/occurred 4 day(s) ago. Possible causes: unknown. cp Associated signs and symptoms: Pertinent positives: anorexia, fever, body aches, Pertinent negatives: abdominal pain, constipation, diarrhea, GI bleeding. Severity of symptoms: in the emergency department the symptoms are unchanged despite home interventions. Historical: - Allergies: 17:49 Codeine; ld1 17:49 PENICILLINS; ld1 - PMHx: 17:49 CVA; Hypertension; Hypothyroidism; ld1 - PSHx: 17:49 Colostomy reversal; ld1 - Immunization history:: Adult Immunizations up to date, Client reports receiving the 2nd dose of the Covid vaccine. - Social history:: Smoking status: Patient reports the use of cigarette tobacco products, smokes one-half pack cigarettes per day, Patient/guardian denies using alcohol. ROS: 18:05 Constitutional: Positive for body aches, poor PO intake, Negative for chills, fever. cp 18:05 Eyes: Negative for injury, pain, redness, and discharge. cp 18:05 ENT: Negative for drainage from ear(s), ear pain, sore throat, difficulty swallowing, difficulty handling secretions. 18:05 Cardiovascular: Negative for chest pain, edema, palpitations. 18:05 Respiratory: Negative for cough, shortness of breath, wheezing. 18:05 Abdomen/GI: Positive for nausea and vomiting, anorexia, Negative for diarrhea, constipation. 18:05 Neuro: Positive for headache, weakness, Negative for altered mental status, dizziness. 18:05 All other systems are negative. Exam: 18:05 ECG was reviewed by the Attending Physician. cp 18:10 Constitutional: The patient appears in no acute distress, alert, awake, cp non-diaphoretic, non-toxic, well developed, well nourished, uncomfortable. 18:10 Head/Face: Normocephalic, atraumatic. cp 18:10 Eyes: Periorbital structures: appear normal, Conjunctiva: normal, no exudate, no injection, Sclera: no appreciated abnormality, Lids and lashes: appear normal, bilaterally. 18:10 ENT: External ear(s): are unremarkable, Nose: is normal, Mouth: Lips: dry, Oral mucosa: moist, Posterior pharynx: is normal, airway is patent, no erythema, no exudate. 18:10 Neck: ROM/movement: is normal, is supple, without pain, no range of motions limitations, no meningismus, no nuchal rigidity. 18:10 Chest/axilla: Inspection: normal. 18:10 Cardiovascular: Rate: tachycardic, Rhythm: regular, Edema: is not appreciated, JVD: is not appreciated. 18:10 Respiratory: the patient does not display signs of respiratory distress, Respirations: normal, no use of accessory muscles, no retractions, labored breathing, is not present, Breath sounds: are clear throughout, no decreased breath sounds, no stridor, no wheezing. 18:10 Abdomen/GI: Inspection: abdomen appears normal, Bowel sounds: active, all quadrants, Palpation: soft, in all quadrants, mild abdominal tenderness, in the epigastric area and right upper quadrant, rebound tenderness, is not appreciated, voluntary guarding, is not appreciated, involuntary guarding, is not appreciated. 18:10 Back: pain, is absent, ROM is normal. Vital Signs: 17:48 BP 119 / 83; Pulse 108; Resp 18; Temp 98.1(TE); Pulse Ox 98% on R/A; Weight 66.22 kg; ld1 Height 5 ft. 4 in. (162.56 cm); Pain 0/10; 19:49 BP 105 / 69; Pulse 78; Resp 16; Pulse Ox 99% ; iw 20:36 BP 132 / 82; Pulse 78; Resp 17; Pulse Ox 98% on R/A; mb9 21:27 BP 133 / 70; Pulse 84; Resp 18; Pulse Ox 99% ; mb9 23:21 BP 132 / 88; Pulse 100; Resp 21 S; Pulse Ox 100% on R/A; as6 17:48 Body Mass Index 25.06 (66.22 kg, 162.56 cm) ld1 MDM: 17:57 Patient medically screened. 01/13 00:35 Data reviewed: vital signs, nurses notes, lab test result(s), EKG, radiologic studies, cp CT scan, plain films, ultrasound. 00:35 I considered the following discharge prescriptions or medication management in the emergency department Medications were administered in the Emergency Department. See MAR. Test considered but Not performed: MRI: MRCP. Care significantly affected by the following chronic conditions: Hypertension. Counseling: I had a detailed discussion with the patient and/or guardian regarding: the historical points, exam findings, and any diagnostic results supporting the discharge/admit diagnosis, lab results, radiology results, the need to transfer to another facility, due to GI being unable to perform ERCP due equipment issues. Response to treatment: the patient's symptoms have mildly improved after treatment. 01:25 ED course: discussed care with DR Garcia, hospitalist \T\[facility], will accept patient as transfer and consult GI. 01/12 17:50 Order name: COVID-19/FLU A+B ld 01/12 17:51 Order name: Basic Metabolic Panel ld 01/12 17:51 Order name: CBC with Diff ld 01/12 17:51 Order name: Troponin HS ld 01/12 17:51 Order name: XRAY Chest (1 view) [facility] 01/12 17:51 Order name: EKG; Complete Time: 17:51 [facility] 01/12 17:51 Order name: Cardiac monitoring; Complete Time: 18:33 [facility] 01/12 17:51 Order name: EKG - Nurse/Tech; Complete Time: 17:57 ld 01/12 17:51 Order name: IV Saline Lock; Complete Time: 19:47 [facility] 01/12 17:51 Order name: Labs collected and sent; Complete Time: 18:33 [facility] 01/12 17:51 Order name: O2 Per Protocol; Complete Time: 17:51 [facility] 01/12 17:51 Order name: O2 Sat Monitoring; Complete Time: 17:51 [facility] 01/12 18:02 Order name: Urine Dipstick-Ancillary (obtain specimen); Complete Time: 18:33 01/12 18:02 Order name: Urine Microscopic Only cp 01/12 18:31 Order name: RAD; Complete Time: 19:18 EDMS 01/12 19:18 Interpretation: Report reviewed. cp 01/12 18:32 Order name: Urine Dipstick-Ancillary; Complete Time: 19:18 EDMS 01/12 19:18 Interpretation: Normal except: UKET 1+; UPROT 1+. cp 01/12 18:38 Order name: Labs - recollect needed: recollect chemistry hemolyzed; Complete Time: 19:28eb 01/12 18:39 Order name: CBC with Automated Diff; Complete Time: 19:18 EDMS 01/12 19:18 Interpretation: Normal except: RBC 5.12; HGB 16.0; HCT 46.9; MN% 12.5. cp 01/12 18:40 Order name: Urine Microscopic Only; Complete Time: 19:18 EDMS 01/12 23:02 Interpretation: Reviewed. cp 01/12 20:00 Order name: COVID-19/FLU A+B; Complete Time: 20:24 EDMS 01/12 20:24 Interpretation: Abnormal. cp 01/12 20:11 Order name: Basic Metabolic Panel; Complete Time: 23:01 EDMS 01/12 20:24 Interpretation: Normal except: NA 134; GLUC 127; BUN 31; CRE 1.65; GFR 33. cp 01/12 20:11 Order name: Troponin High Sensitivity; Complete Time: 23:01 EDMS 01/12 20:25 Order name: PO challenge; Complete Time: 20:35 cp 01/12 20:34 Order name: CT Abd/Pelvis - Without Contrast cp 01/12 21:22 Order name: CT; Complete Time: 21:40 EDMS 01/12 21:46 Order name: US Abdomen Limited: gallbladder cp 01/12 21:46 Order name: LAB Add On cp 01/12 22:34 Order name: Lipase cp 01/12 22:34 Order name: LFT's cp 01/12 22:37 Order name: Liver (Hepatic) Function; Complete Time: 23:01 EDMS 01/12 23:02 Interpretation: Normal except: GLOB 3.9. cp 01/12 22:37 Order name: Lipase; Complete Time: 23:01 EDMS 01/13 00:38 Order name: Blood Culture Adult (2) cp 01/13 00:38 Order name: Lactate w/ 2H reflex if indic. cp 01/13 01:41 Order name: NPO; Complete Time: 01:43 cp EC/03 18:05 Rate is 100 beats/min. Rhythm is regular. [place] interval is normal. QRS interval is cp normal. T waves are Inverted in leads I, aVL, aVR. Interpreted by me. Reviewed by me. Administered Medications: 19:40 Drug: Zofran (Ondansetron) 4 mg Route: IVP; Site: left forearm; iw 20:29 Follow up: Response: No adverse reaction iw 19:47 Drug: Pepcid (famotidine) 20 mg Route: IVP; Site: left forearm; iw 20:29 Follow up: Response: No adverse reaction iw 19:47 Drug: NS 0.9% 500 ml Route: IV; Rate: 500 ml/hr; Site: left forearm; iw 20:35 Follow up: Response: No adverse reaction; IV Status: Completed infusion iw 20:35 Drug: Tylenol 1000 mg Route: PO; iw 21:21 Follow up: Response: No adverse reaction mb9 20:35 Drug: NS 0.9% 500 ml Route: IV; Rate: 500 ml/hr; Site: left forearm; iw 01/13 01:32 Follow up: Response: No adverse reaction; IV Status: Completed infusion; IV Intake: as6 500ml 01/12 23:10 Drug: Zofran (Ondansetron) 4 mg Route: IVP; Site: left forearm; as6 01/13 00:13 Follow up: Response: No adverse reaction as6 01:04 Not Given (Physician Discretion): NS 0.9% 1000 ml IV at 75 ml/hr continuous cp 01:04 Not Given (Physician Discretion): Flagyl (metroNIDAZOLE) 500 mg 100 ml IVPB at 200 cp ml/hr once over 30 mins 01:38 Drug: NS 0.9% 1000 ml Route: IV; Rate: 1 bolus; Site: left forearm; lg3 02:02 Follow up: Response: No adverse reaction; IV Status: Infusion continued upon transfer; as6 IV Intake: 200ml 01:43 Drug: Reglan (metoCLOPramide) 10 mg Route: IVP; Site: left forearm; lg3 02:00 Follow up: Response: No adverse reaction as6 02:00 Drug: Rocephin (cefTRIAXone) 1 grams Route: IV; Rate: calculated rate; Site: left as6 forearm; 02:02 Follow up: Response: No adverse reaction; IV Status: Completed infusion; IV Intake: [id number] 02:00 Drug: metroNIDAZOLE 500 mg Volume: 100 ml; Route: IVPB; Infused Over: 30 mins; Site: as6 left forearm; 02:03 Follow up: Response: No adverse reaction; IV Status: Infusion continued upon transfer; as6 IV Intake: 20ml 02:01 Drug: NS 0.9% 1000 ml Route: IV; Rate: 100 ml/hr; Site: left forearm; as6 02:03 Follow up: Response: No adverse reaction; IV Status: Infusion continued upon transfer; as6 IV Intake: 30ml Disposition Summary: 01/13/23 00:34 Transfer Ordered Transfer Location: [facility] cp Reason: Higher level of care cp Condition: Stable(01/13/23 00:34) cp Problem: new(01/13/23 00:34) cp Symptoms: have improved(01/13/23 00:34) cp Accepting Physician: DR Garcia(01/13/23 02:03) as6 Diagnosis - Nausea with vomiting, unspecified(01/13/23 00:34) cp - Choledocholithiasis cp - SARS-associated coronavirus as the cause of diseases classified elsewhere(01/13/23 cp 00:34) - Calculus of gallbladder and bile duct without cholecystitis with obstruction cp Forms: - Medication Reconciliation Form cp - SBAR form cp Addendum: 01/15/2023 02:28 Co-signature as Attending Physician, Chandler Rudolph MD I reviewed the patient's care s p4 provided by the Advanced Practice Provider and agree with the diagnosis and treatment plan. Signatures: Dispatcher [employer] EDHortensia Bagley RN RN iw Page, Corey, PA PA cp Roseanne Petersen Lacie, RN RN lg3 Lela Brantley RN RN ld1 Irving Chow RN RN as6 Chandler Rudolph MD MD sp4 Matilda Mireles RN mb9 Corrections: (The following items were deleted from the chart) 01/13 00:30 00:12 Observation cp cp 00: 00:12 Eitan Almonte cp cp 00:30 00:12 Telemetry/MedSurg (observation) cp cp : 00:12 Stable cp cp : 00:12 new cp cp : 00:12 have improved cp cp : 00:12 Standard cp cp 00: 00:12 cp cp 00: 00:12 Nausea with vomiting, unspecified cp cp : 00:12 Other cholelithiasis without obstruction cp cp : 00:12 SARS-associated coronavirus as the cause of diseases classified elsewhere cp cp 01:27 00:34 Doctor cp cp 01:27 01:27 Doctor cp cp 02:03 01:27 DR Garcia cp as6
[2023-01-13] MEDS ORDERED: NA CHLORIDE 0.9% 1,000 ML ONE ×2 (00:26→01:37)
[2023-01-13] MEDS ORDERED: METRONIDAZOLE 500mg IVPB 500 MG/100 ML BAG IV ONE (00:26)
[2023-01-13] MEDS ORDERED: CEFTRIAXONE 1000 MG/VIAL ONE (00:26)
[2023-01-13] MEDS ORDERED: METOCLOPRAMIDE 10 MG/2mL INJ ONE (01:46)
[2023-01-13 02:17] VITALS: TEMP 98.1
[2023-01-13 02:22] VITALS: BP 132/88; O2SAT 100
--- NOTE | 2023-01-13 15:27 | RAD REPORT ---
EXAM DESCRIPTION: US - Abdomen Exam Limited - 01/12/2023 11:00 pm CLINICAL HISTORY: Nausea and vomiting. TECHNIQUE: Abdominal ultrasound, limited, right upper quadrant. COMPARISON: None. FINDINGS: Liver: Normal. Gallbladder: The gallbladder is moderately distended measuring 10 x 4 cm. There is no appreciable wal l thickening There are small stones along the dependent wall in the fundus. Common Bile Duct: Dilated caliber measuring 0.9 cm. in AP diameter. IMPRESSION: 1. Moderately severe enlargement of the common bile duct and moderately severe distentio n of the gallbladder. Consider a common bile duct obstruction. 2. Cholelithiasis. Electronically signed by: Alen Urbano MD 01/12/2023 11:52 PM [employer] Due to temporary technical issues with the PACS/Fluency reporting system, reports are being signed by the in house radiologists without review as a courtesy to insure prompt reporting. The interpreting radiologist is fully responsible for the content of the report.
--- NOTE | 2023-01-15 16:47 | EKG ---
Test Date: 2023-01-12 Test Time: 17:58:50 Technical Service Engineer: TONYA MEASUREMENT RESULTS: Intervals: Rate: 100 VA: 126 QRSD: 70 QT: 354 QTc: 456 [place]: P: 83 VA: 126 QRS: 87 T: 97 INTERPRETIVE STATEMENTS: Normal sinus rhythm Left ventricular hypertrophy with repolarization abnormality Abnormal ECG Compared to ECG 09/29/2021 22:40:18 Left ventricular hypertrophy now present Early repolarization now present Atrial fibrillation no longer present ST (T wave) deviation no longer present Electronically Signed On 01-15-23 16:39:52 QUALITY CONTROL LAB TECH by René Worthington
== END 2023-01-13 02:03 | disposition short-term general hospital (02) ==
LOC: ER 17:18
DX: K80.70 Calculus of gallbladder and bile duct without cholecystitis without obstruction (principal); U07.1 COVID-19; I10 Essential (primary) hypertension; F17.210 Nicotine dependence, cigarettes, uncomplicated; Z88.0 Allergy status to penicillin; Z88.5 Allergy status to narcotic agent
CPT/HCPCS: 96361; 93005; 85025; 80048; 36415; 80076; 84484; 83690; 0240U; 74176; 71045; 76705; 96375; 96374; 99285; J2765; J7040 ×2; J7030 ×2; J2405 ×2; 81003; 81015

== ENCOUNTER 2023-04-20 11:02 | Emergency (ER) | payer OTHER ==
--- OUTSIDE RECORDS SUMMARY | 2023-04-20 11:06 | XMS REPORT | Continuity of Care Document ---
:1955 Author Organization [facility] t Address [address] [place] [address] Care Team Providers Name Role Phone LIDIA GARCIA Attending Clinician Unavailable Saskia Valenzuela MD Attending Clinician Kenny Scott MD Attending Clinician [phone] KENNY SCOTT Attending Clinician Unavailable Lidia Garcia MD Attending Clinician Only, Adc Test Attending Clinician Unavailable LIDIA GARCIA Admitting Clinician Unavailable SASKIA VALENZUELA Admitting Clinician Unavailable KENNY SCOTT Admitting Clinician Unavailable Lidia Garcia MD Admitting Clinician Payers Payer Name Policy Type Policy Number Effective Date Expiration Date S ource [place]ICAID OF [place] [id number] 2020 00:00:00 MEDICARE PART A [id number] 2018 00:00:00 Problems Condition Condition Condition Status Onset Resolution Last Treating Co mments Source Name Details Category Date Date Treatment Clinician Date Gallstones Gallstones Disease [facility] No known No known Disease Unive rs active active ity of problems problems [facility] Allergies, Adverse Reactions, Alerts Allergy Allergy Status Severity Reaction(s) Onset Inactive Treating Comm ents Source Name Type Date Date Clinician TREE Allergy Active Low Other [facility] YOLANDA [place] 00:[facility] Medical 00 Center Tree Drug Active Other (See [facility] Allergy Comments) 3-04 [facility] yolanda [place] 00:00: Medical 00 Center Codeine Propensi Active Nausea 2016-11 Univers ty to and/or 11-14 ity of adverse Vomiting 00:00: [place] reaction 00 Medical s Branch Penicill Propensi Active Rash 2016-11 Univer s in ty to 11-14 ity of adverse 00:00: [place] reaction 00 Medical s Branch CODEINE DRUG Active N/V 2016-11 Univers INGREDI 11-14 ity of 00:00: [place] 00 Medical Branch PENICILL DRUG Active Rash 2016-11 Univers IN INGREDI 11-14 ity of 00:00: [place] 00 Medical Branch Social History Social Habit Start Date Stop Date Quantity Comments Source Exposure to Not sure [facility] SARS-CoV-2 (event) Medica l Branch Tobacco use and 2020-08-24 2020-08-24 Never used [facility] exposure 00:00:00 00:00:00 [facility] Sex Assigned At [address] [facility] kes 00:00:00 00:00:00 [facility] Smoking Status Start Date Stop Date Source Current every day smoker 2020-08-24 00:00:00 Uni versity [facility] Medications Ordered Filled Start Stop Current Ordering Indication Dosage Frequency Signature Comments Components Source Medication Medication Date Date Medication? Clinician (SIG) Name Name levothyroxi Yes 25ug Take [address] [facility] 3-05 mcg by [facility] (SYNTHROID, 19:33: mouth Medic al LEVOTHROID) 21 Every Center 25 MCG morning on tablet an empty stomach. lisinopriL Yes 30mg Take [address] (PRINIVIL,Z 3-05 by mouth 2 Felicia kes ESTRIL) 30 19:33: (two) Medica l MG tablet 21 times Center daily with breakfast and dinner. levothyroxi Yes 25ug Take [address] ne 3-05 mcg by [facility] (SYNTHROID, 19:33: mouth Medic al LEVOTHROID) 21 Every Center 25 MCG morning on tablet an empty stomach. lisinopriL Yes 30mg Take [address] (PRINIVIL,Z 3-05 by mouth 2 Felicia kes ESTRIL) 30 19:33: (two) Medica l MG tablet 21 times Center daily with breakfast and dinner. amoxicillin 2022- No 1{tbl} [id number] Take [address] -clavulanat 3-05 -12 [id number] tablet by [facility]ukes e 00:00: 23:59 3D mouth 3 Medical (AUGMENTIN) 00 :00 (three) Cente r 500-125 mg times per tablet daily for 7 days. ondansetron 2022- No 4mg Take [address] (ZOFRAN-ODT 3-05 03-12 tablet (4 Felicia kes ) 4 MG 00:00: 23:59 mg total) Medic al disintegrat 00 :00 by mouth Cent er ing tablet every 8 (eight) hours as needed for Nausea for up to 7 days. amoxicillin 2022-2022- No 1{tbl} [id number] Take [address] -clavulanat 3-05 -12 [id number] tablet by Lukes e 00:00: 23:59 3D mouth 3 Medical (AUGMENTIN) 00 :00 (three) Cente r 500-125 mg times per tablet daily for 7 days. ondansetron 2022-2022- No 4mg Take [address] (ZOFRAN-ODT 3-05 03-12 tablet (4 Felicia kes ) 4 MG 00:00: 23:59 mg total) Medic al disintegrat 00 :00 by mouth Cent er ing tablet every 8 (eight) hours as needed for Nausea for up to 7 days. ondansetron 2022-0 2022- No 4mg Take [address] (ZOFRAN-ODT 3-05 03-05 tablet (4 Felicia kes ) 4 MG 00:00: 00:00 mg total) Medic al disintegrat 00 :00 by mouth Cent er ing tablet every 8 (eight) hours as needed for Nausea for up to 7 days. amoxicillin 2022- No 1{tbl} Q.[id number] Take [address] -clavulanat 3-05 03-05 [id number] tablet by Lukes e 00:00: 00:00 3D mouth 3 Medical (AUGMENTIN) 00 :00 (three) Cente r 500-125 mg times per tablet daily for 7 days. ondansetron 2022- No 4mg Take [address] (ZOFRAN-ODT 01-14 tablet (4 Felicia kes ) 4 MG 00:00: 00:00 mg total) Medic al disintegrat 00 :00 by mouth Cent er ing tablet every 8 (eight) hours as needed for Nausea for up to 7 days. amoxicillin 2022- No 1{tbl} Q.[id number] Take [address] -clavulanat -01-14 [id number] tablet by Lukes e 00:00: 00:00 3D mouth 3 Medical (AUGMENTIN) 00 :00 (three) Cente r 500-125 mg times per tablet daily for 7 days. lisinopriL 2019-11 Yes 30mg Take 30 mg U nivers 30 mg 0-15 by mouth ity of tablet 14:52: daily. [address] Levothyroxi 2019-11 Yes Take by Uni vers ne 25 mcg 0-15 mouth. ity of capsule 14:52: [address] azelastine 2019-11 Yes 1[drp] Place 1 Un meliza 0.05 % 0-15 Drop in ity of ophthalmic 14:52: [place] solution 05 2 (two) Medical times [place] daily. lactated 2019-11 Yes 1000mL at 75 [...] by mouth ity of tablet 19:43: daily. [address] Levothyroxi 2019-11 Yes Take by Uni vers ne 25 mcg 0-13 mouth. ity of capsule 19:43: [address] azelastine 2019-11 Yes 1[drp] Place 1 Un meliza 0.05 % 0-13 Drop in ity of ophthalmic 19:43: [place] eyes [place] solution 58 2 (two) Medical times Branch daily. sulfamethox Yes [id number] 1{tbl} Take 1 Univers azole-trime 4-13 tablet by ity of thoprim 00:00: mouth [place] 800-160 mg 00 every 12 Medic al per tablet (twelve) Branc h hours. fluconazole Yes [id number] Take one Univers 150 mg 4-13 tablet PO ity of tablet 00:00: today, 00 then one Medical tablet PO Branch in 10 days, at the end of antibiotic treatment. sulfamethox Yes [id number] 1{tbl} Take 1 Univers azole-trime 4-13 tablet by ity of thoprim 00:00: mouth [place] 800-160 mg 00 every 12 Medic al per tablet (twelve) Branc h hours. fluconazole 2018- Yes [id number] Take one Univers 150 mg 4-13 tablet PO ity of tablet 00:00: today, [place] 00 then one Medical tablet PO Branch in 10 days, at the end of antibiotic treatment. cloniDINE 2016-11 Yes .1mg Take 1 Univer s 0.1 mg 1-03 tablet by ity of tablet 00:00: mouth 2 [place] 00 (two) Medical times Branch daily. cloniDINE 2016-11 Yes .1mg Take 1 Univer s 0.1 mg 1-03 tablet by ity of tablet 00:00: mouth 2 [place] 00 (two) Medical times Branch daily. Vital Signs Vital Name Observation Time Observation Value Comments Source WEIGHT 2023-01-13 04:00:00 66.225 kg HEIGHT 2023-01-13 04:00:00 162.6 cm WEIGHT 2023-01-13 04:00:00 66.225 kg HEIGHT 2023-01-13 04:00:00 162.6 cm WEIGHT 2023-01-13 04:00:00 66.225 kg HEIGHT 2023-01-13 04:00:00 162.6 cm Systolic blood 2020-08-26 14:30:00 119 mm[Hg] Univer sity of pressure [facility] Diastolic blood 2020-08-26 14:30:00 83 mm[Hg] Unive rsity [facility] Heart rate 2020-08-26 14:30:00 87 /min [facility] Respiratory rate 2020-08-26 14:30:00 15 /min [facility] Oxygen saturation in 2020-08-26 14:30:00 95 /min [facility] Arterial blood by [facility] Pulse oximetry [place] Body temperature 2020-08-26 14:15:00 36.17 Quiana [facility] Body weight 2020-08-26 13:16:00 72.122 kg [facility] BMI 2020-08-26 13:16:00 27.28 kg/m2 [facility] Body height 2020-08-25 18:23:00 162.6 cm [facility] Systolic blood 2023-01-14 17:03:00 170 mm[Hg] [facility] Diastolic blood 2023-01-14 17:03:00 90 mm[Hg] [facility] Heart rate 2023-01-14 17:03:00 68 /min [facility] Body temperature 2023-01-14 17:03:00 36.28 Quiana [facility] Respiratory rate 2023-01-14 17:03:00 19 /min [facility] Oxygen saturation in 2023-01-14 17:03:00 96 /min [facility] Arterial blood by Medical nter Pulse oximetry BMI 2023-01-13 05:22:00 24.98 kg/m2 [facility] Body weight 2023-01-13 05:22:00 66 kg [facility] Body height 2023-01-13 04:00:00 162.6 cm [facility] Procedures Procedure Date / Time Performing Clinician Source Performed ABORH, MANUAL 2023-01-14 12:37:00 Eileen Pham [facility] CBC W/PLT COUNT & AUTO 2023-01-14 12:23:00 TylerKenny [facility] DIFFERENTIAL [facility] TYPE AND SCREEN, AUTOMATED 2023-01-14 12:23:00 [facility] [place] [facility] W/PLT COUNT & AUTO 2023-01-14 12:23:00 TylerKenny [facility] DIFFERENTIAL [facility] COMPREHENSIVE METABOLIC 2023-01-14 12:22:00 Kenny Scott [facility] PANEL [facility] [place] MR ABDOMEN WITHOUT IV 2023-01-13 09:49:00 Saskia Valenzuela [facility] CONTRAST MRCP Center CBC W/PLT COUNT & AUTO 2023-01-13 05:05:00 Saskia Valenzuela [facility] DIFFERENTIAL Center COMPREHENSIVE METABOLIC 2023-01-13 05:05:00 Saskia Valenzuela [facility] PANEL Center CBC W/PLT COUNT & AUTO 2023-01-13 05:05:00 Saskia Valenzuela [facility] DIFFERENTIAL [place] EKG-SCANNED 2023-01-13 00:00:00 Provider, Adolfo [facility] Medical Scanning Center COLONOSCOPY (ENDO) 2020-08-26 12:05:21 Mendez May [facility] Medical Branch [facility] PATIENT FINANCIAL 2020-08-25 18:42:58 Doctor Unassigned, [facility] POLICY [facility] NO SHOW OR MISSED 2020-08-25 17:55:08 Doctor Unassigned, [facility] APPOINTMENT POLICY [place] [facility] ACKNOWLEDGEMENT CONSENT/REFUSAL FOR 2020-08-25 17:54:49 Doctor Unaandre, [facility] DIAGNOSIS AND TREATMENT [place] ASSIGNMENT OF BENEFITS 2020-08-25 17:54:30 Doctor Unassigned, [facility] CONSENT/REFUSAL FOR 2020-08-25 17:54:14 Doctor Unassigned, [facility] DIAGNOSIS AND TREATMENT [place] ASSIGNMENT OF BENEFITS 2020-08-25 17:54:01 Doctor Unassigned, [facility] [place] DSU PRE-OP 2020-08-20 05:01:00 Doctor Unassigned, [facility] Plan of Care Planned Activity Planned Date Details Comments Source Future Scheduled 2023-07-[address] [facility] Test 00:00:00 (Season Ended) [code = Medic al Center INFLUENZA VACCINE (Season Ended)] Future Scheduled 2022-11-[address] [facility] Test 00:00:00 (12+) [code = Medical Center DEPRESSION SCREENING (12+)] Future Scheduled 2022-11-12 FALLS RISK SCREENING [facility] Test 00:00:00 [code = FALLS RISK Medical C enter SCREENING] Future Scheduled 2022-11-[address] [facility] Test 00:00:00 (12+) [code = Medical Center DEPRESSION SCREENING (12+)] Future Scheduled 2022-11-12 FALLS RISK SCREENING [facility] Test 00:00:00 [code = FALLS RISK Medical C enter SCREENING] Future Scheduled 2022-07-[address] [facility] Test 00:00:00 WELLNESS (YEAR 2 or Medical Center FIRST YEAR if no IPPE) [code = MEDICARE ANNUAL WELLNESS (YEAR 2 or FIRST YEAR if no IPPE)] Future Scheduled 2022-07-[address] [facility] Test 00:00:00 WELLNESS (YEAR 2 or Medical Center FIRST YEAR if no IPPE) [code = MEDICARE ANNUAL WELLNESS (YEAR 2 or FIRST YEAR if no IPPE)] Future Scheduled 2022-07-13 INFLUENZA VACCINE (#1[facility] 00:00[facility]00 [code = INFLUENZA Medical Ce nter VACCINE (#1)] Future Scheduled 2018 PNEUMOCOCCAL 65+ YRS ([address] [facility] Test 00:00:00 - PCV) [code = Medical Cente r PNEUMOCOCCAL 65+ YRS (1 - PCV)] Future Scheduled 2018 PNEUMOCOCCAL 65+ YRS ([address] [facility] Test 00:00:00 - PCV) [code = Medical Cente r PNEUMOCOCCAL 65+ YRS (1 - PCV)] Future Scheduled 2003 SHINGLES VACCINES ([address] [facility] Test 00:00:00 2) [code = SHINGLES Medical Center VACCINES (1 of 2)] Future Scheduled 2003 SHINGLES VACCINES ([address] [facility] Test 00:00:00 2) [code = SHINGLES Medical Center VACCINES (1 of 2)] Future Scheduled 1972 DTAP/TDAP/TD [facility]ACCINES [facility] 00:00:00 (1 - Tdap) [code = Medical C enter DTAP/TDAP/TD VACCINES (1 - Tdap)] Future Scheduled 1972 DTAP/TDAP/TD VACCINES [facility] Test 00:00:00 (1 - Tdap) [code = Medical C enter DTAP/TDAP/TD VACCINES (1 - Tdap)] Future Scheduled 1971 HEPATITIS C SCREENING [facility] 00:00:00 [code = HEPATITIS C Medical Center SCREENING] Future Scheduled 1971 HEPATITIS C SCRE[facility]ING [facility] 00:00:00 [code = HEPATITIS C Medical Center SCREENING] Future Scheduled [address] [facility] Test 00:00:00 Counseling and Medical Cente r Screening (12+) [code = Tobacco Cessation Counseling and Screening (12+)] Future Scheduled [address] [facility] Test 00:00:00 Counseling and Medical Cente r Screening (12+) [code = Tobacco Cessation Counseling and Screening (12+)] Future Scheduled 1954-06-25 COVID-19 VACCINE (#1) [facility] 00:00:00 [code = COVID-[address] VACCINE (#1)] Future Scheduled 1956-06-25 COVID-19 VACCINE (#1) [facility] 00:00:00 [code = COVID-[address] VACCINE (#1)] Future Scheduled 1953 Screening for malignant [facility] Test 00:00:00 neoplasm of breast Medical C enter (procedure) [code = 184096274] Future Scheduled 1953 CT Colonography (combo) [facility] Test 00:00:00 [code = CT Colonography [facility] (combo)] Future Scheduled 1953 Screening for malignant [facility] Test 00:00:00 neoplasm of colon Medical Ce nter (procedure) [code = 291983572] Future Scheduled 1953 Screening for malignant [facility] Test 00:00:00 neoplasm of colon Medical Ce nter (procedure) [code = 724592434] Future Scheduled 1955 DXA SCAN [code = DXA [facility] Test 00:00:00 SCAN] [facility] Future Scheduled 1953 Screening for malignant [facility] Test 00:00:00 neoplasm of colon Medical Ce nter (procedure) [code = 885468907] Future Scheduled 1953 Screening for malignant [facility] Test 00:00:00 neoplasm of colon Medical Ce nter (procedure) [code = 553077763] Future Scheduled 1955 Sigmoidoscopy [code = [facility]:00 Sigmoidoscopy] [facility] Future Scheduled 1953 Screening for malignant [facility] Test 00:00:00 neoplasm of breast Medical C enter (procedure) [code = 901183169] Future Scheduled 1953 CT Colonography (combo) [facility] Test 00:00:00 [code = CT Colonography [facility] (combo)] Future Scheduled 1953 Screening for malignant [facility] Test 00:00:00 neoplasm of colon Medical Ce nter (procedure) [code = 641180826] Future Scheduled 1953 Screening for malignant [facility] Test 00:00:00 neoplasm of colon Medical Ce nter (procedure) [code = 391079173] Future Scheduled 1955 DXA SCAN [code = DXA [facility] Test 00:00:00 SCAN] [facility] Future Scheduled 1953 Screening for malignant [facility] Test 00:00:00 neoplasm of colon Medical Ce nter (procedure) [code = 123029798] Future Scheduled 1953 Screening for malignant [facility] Test 00:00:00 neoplasm of colon Medical Ce nter (procedure) [code = 528636754] Future Scheduled 1955 Sigmoidoscopy [code = [facility] 00:[facility]:00 Sigmoidoscopy] Medical Cente r Encounters Start End Encounter Admission Attending Care Care Encounter Source Date/Time Date/Time Type Type Clinicians Facility Department ID 2021-09-09 Outpatient R [facility] R[facility]HEL [id number] Univers 22:56:09 LIDIA Golden of [facility] 2023-01-13 2023-01-14 Hospital ER Saskia Valenzuela [facility] [id number] 03:09:00 19:30:00 Encounter Kenny Scott [facility] 2023-01-13 2023-01-14 [facility] Saskia Valenzuela [facility] [id number] [facility] 03:09:00 19:30:00 Encounter Noemy Scottdevante [facility] 2023-01-13 2023-01-14 Outpatient ER TYL[facility], [facility] Internal [id number] SLE 03:09:00 19:30:00 [facility] 2020-08-26 2020-08-26 [facility] [id number] Univers 08:03:00 09:45:00 Encounter Lidia golden [id number] ity of [place] [id number] [facility] [id number] [address] 2020-08-25 2020-08-25 Outpatient R [facility] [id number] Univers 13:15:00 13:15:00 LIDIA Golden o f [facility] 2020-08-25 2020-08-25 Laboratory Only, Adc Test [facility] [id number] Univers 12:52:17 13:07:17 Only Lidia Garcia [id number] 3.10 [facility] of [place] [id number] [facility] [id number] [address] Results Test Description Test Time Test Comments Results Result Comments Source COMPREHENSIVE METABOLIC PANEL 2023-01-14 13:39:20 Test Item Value Reference Range Interpretation Comme nts TOTAL PROTEIN (BEAKER) 6.7 gm/dL 6.0-8.3 (test code = 770) ALBUMIN (BEAKER) (test 3.8 g/dL 3.5-5.0 code = 1145) ALKALINE PHOSPHATASE 83 U/L 40-150 (BEAKER) (test code = 346) BILIRUBIN TOTAL (BEAKER) 0.5 mg/dL 0.2-1.2 (test code = 377) SODIUM (BEAKER) (test 137 meq/L 136-145 code = 381) POTASSIUM (BEAKER) (test 3.9 meq/L 3.5-5.1 code = 379) CHLORIDE (BEAKER) (test 103 meq/L 98-107 code = 382) CO2 (BEAKER) (test code 23 meq/L 22-29 = 355) BLOOD UREA NITROGEN 10 mg/dL 7-21 (BEAKER) (test code = 354) CREATININE (BEAKER) 0.76 mg/dL 0.57-1.25 (test code = 358) GLUCOSE RANDOM (BEAKER) 74 mg/dL 70-105 (test code = 652) CALCIUM (BEAKER) (test 8.7 mg/dL 8.4-10.2 code = 697) AST (SGOT) (BEAKER) 42 U/L 5-34 H (test code = 353) ALT (SGPT) (BEAKER) 37 U/L 6-55 (test code = 347) EGFR (BEAKER) (test code 85 mL/min/1.73 sq Interpretation of eGFR values = 1092) m Stage Descripti on Result G1 Normal or high >=90 G2 Mildly decreased 60-89 G3a Mildly to moderately 45-5 9 G3b Moderately to severely 30- 44 G4 Severly decreased 15-29 G5 Kidney failure <15Repo rted eGFR is based on the CK D-EPI 2020 equation that d oes not use a race coefficien tEstimated GFR is not as accurate as Creatinine Clearance in pr edicting glomerular filt ration rate. Estimated GFR i s not applicable for dialysis maribell [employer] ID - CHERI GCBC W/PLT COUNT & AUTO [id number] 12:39:42 Test Item Value Reference Range Interpretation Comments WHITE BLOOD CELL COUNT (BEAKER) 4.2 K/ L 3.5-10.5 (test code = 915) RED BLOOD CELL COUNT (BEAKER) 4.57 M/ L 3.93-5.22 (test code = 761) HEMOGLOBIN (BEAKER) (test code = 13.8 GM/DL 11.2-15.7 410) HEMATOCRIT (BEAKER) (test code = 42.7 % 34.1-44.9 411) MEAN CORPUSCULAR VOLUME (BEAKER) 93 fL 79-95 (test code = 753) MEAN CORPUSCULAR HEMOGLOBIN 30.2 pg 25.6-32.2 (BEAKER) (test code = 751) MEAN CORPUSCULAR HEMOGLOBIN CONC 32.3 GM/DL 32.2-35.5 (BEAKER) (test code = 752) RED CELL DISTRIBUTION WIDTH 13.1 % 11.7-14.4 (BEAKER) (test code = 412) PLATELET COUNT (BEAKER) (test 133 K/CU MM 150-450 L code = 756) MEAN PLATELET VOLUME (BEAKER) 11.4 fL 9.4-12.3 (test code = 754) NUCLEATED RED BLOOD CELLS 0 /100 WBC 0-0 (BEAKER) (test code = 413) NEUTROPHILS RELATIVE PERCENT 55 % (BEAKER) (test code = 429) LYMPHOCYTES RELATIVE PERCENT 32 % (BEAKER) (test code = 430) MONOCYTES RELATIVE PERCENT 12 % (BEAKER) (test code = 431) EOSINOPHILS RELATIVE PERCENT 1 % (BEAKER) (test code = 432) BASOPHILS RELATIVE PERCENT 0 % (BEAKER) (test code = 437) NEUTROPHILS ABSOLUTE COUNT 2.30 K/ L 1.56-6.13 (BEAKER) (test code = 670) LYMPHOCYTES ABSOLUTE COUNT 1.32 K/ L 1.18-3.74 (BEAKER) (test code = 414) MONOCYTES ABSOLUTE COUNT (BEAKER) 0.49 K/ L 0.24-0.36 H (test code = 415) EOSINOPHILS ABSOLUTE COUNT 0.05 K/ L 0.04-0.36 (BEAKER) (test code = 416) BASOPHILS ABSOLUTE COUNT (BEAKER) 0.01 K/ L 0.01-0.08 (test code = 417) IMMATURE GRANULOCYTES-RELATIVE 0.00 % 0.00-1.00 PERCENT (BEAKER) (test code = 2801) MR, ABDOMEN, [id number] 18:37:00Unlisted Reason for Exam - Click Yes and Enter Reason Below->No cbd dilated [facility] : 1955 Sex: FFINAL REPORT MR, ABDOMEN, MRCP HISTORY: Abdominal pain, biliary obstruction suspected (Ped 0-18y) COMPARISON: None. TECHNIQUE: MRI of the abdomen without IV contrast, with exam tailored to evaluate the biliary tree and the pancreas. Multiplanar, multisequence images, including heavily T2-weighted MRCP sequences were obtained. 3-D reconstructions of the biliary tree were provided.FINDINGS: Bile ducts: Mild extrahepatic biliary ductal dilation with no intraluminal filling defects. Abrupt tapering at the ampulla.Liver: Unremarkable.Gallbladder: Gallstones. The gallbladder is mildly overdistended. There is no gallbladder wall thickening or pericholecystic edemaPancreas: A 1.8 cm non-rounded cystic lesion of the pancreatic head/uncinate process. Additional Findings:Lung bases: Unremarkable.Spleen: Unremarkable.Adrenals: UnremarkableKidneys and ureters: Mild asymmetric atrophy ofthe right kidney. A punctate cyst in the right interpolar region, no follow-up imaging recommended. No hydronephrosis bilaterally.Bowel: Unremarkable.Lymph nodes: Unremarkable.Peritoneum: Unremarkable.Vessels: UnremarkableAbdominal wall: Unremarkable.Bones: Unremarkable. IMPRESSION: ABSENCE OF INTRAVENOUS CONTRAST DECREASES SENSITIVITY FOR DETECTION OF FOCAL LESIONS AND VASCULAR PATHOLOGY, CANNOT EVALUATE FOR PERFUSION WITHOUT INTRAVENOUS CONTRAST. 1.Mild extrahepatic biliary ductal dilation with nointraluminal filling defects. Abrupt tapering at the ampulla. Differential considerations include distal common duct stricture or sphincter of Oddi dysfunction or occult stone. Consider ERCP correlation. 2.Cholelithiasis. Over distended gallbladder. No gallbladder wall thickening or pericholecystic edema. Signed: Rodrick Ace MDReport Verified Date/Time: 01/13/2023 18:37:36 COMPREHENSIVE METABOLIC [id number] 06:41:55 Test Item Value Reference Range Interpretation Comments TOTAL PROTEIN 6.3 gm/dL 6.0-8.3 (BEAKER) (test code = 770) ALBUMIN (BEAKER) 3.7 g/dL 3.5-5.0 (test code = 1145) ALKALINE 73 U/L 40-150 PHOSPHATASE (BEAKER) (test code = 346) BILIRUBIN TOTAL 0.2 mg/dL 0.2-1.2 (BEAKER) (test code = 377) SODIUM (BEAKER) 138 meq/L 136-145 (test code = 381) POTASSIUM (BEAKER) 3.9 meq/L 3.5-5.1 (test code = 379) CHLORIDE (BEAKER) 108 meq/L 98-107 H (test code = 382) CO2 (BEAKER) (test 21 meq/L 22-29 L code = 355) BLOOD UREA 29 mg/dL 7-21 H NITROGEN (BEAKER) (test code = 354) CREATININE 1.34 mg/dL 0.57-1.25 H (BEAKER) (test code = 358) GLUCOSE RANDOM 80 mg/dL 70-105 (BEAKER) (test code = 652) CALCIUM (BEAKER) 8.1 mg/dL 8.4-10.2 L (test code = 697) AST (SGOT) 29 U/L 5-34 (BEAKER) (test code = 353) ALT (SGPT) 22 U/L 6-55 (BEAKER) (test code = 347) EGFR (BEAKER) 43 Interpretatio n of eGFR (test code = 1092) mL/min/1.[address] age Description sq m Result G1 Nicole l or high >=90 G2 Mildly decreased 60-89 G3a Mildl y to moderately 45-5 9 G3b Moderately to s everely 30-44 G4 Severl y decreased 15-29 G5 Kidney failure <15Reported eGF R is based on the CKD-EPI 2020 equation that d oes not use a race coefficientEsti mated GFR is not as accur ate as Creatinine Hayley norman in predicting glom erular filtration rate . 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 ID - [id number] W/PLT COUNT & AUTO [id number] 06:17:22 Test Item Value Reference Range Interpretation Comments WHITE BLOOD CELL COUNT (BEAKER) 4.8 K/ L 3.5-10.5 (test code = 775) RED BLOOD CELL COUNT (BEAKER) 4.47 M/ L 3.93-5.22 (test code = 761) HEMOGLOBIN (BEAKER) (test code = 13.5 GM/DL 11.2-15.7 410) HEMATOCRIT (BEAKER) (test code = 42.1 % 34.1-44.9 411) MEAN CORPUSCULAR VOLUME (BEAKER) 94 fL 79-95 (test code = 753) MEAN CORPUSCULAR HEMOGLOBIN 30.2 pg 25.6-32.2 (BEAKER) (test code = 751) MEAN CORPUSCULAR HEMOGLOBIN CONC 32.1 GM/DL 32.2-35.5 L (BEAKER) (test code = 752) RED CELL DISTRIBUTION WIDTH 13.2 % 11.7-14.4 (BEAKER) (test code = 412) PLATELET COUNT (BEAKER) (test 148 K/CU MM 150-450 L code = 756) MEAN PLATELET VOLUME (BEAKER) 11.7 fL 9.4-12.3 (test code = 754) NUCLEATED RED BLOOD CELLS 0 /100 WBC 0-0 (BEAKER) (test code = 413) NEUTROPHILS RELATIVE PERCENT 49 % (BEAKER) (test code = 429) LYMPHOCYTES RELATIVE PERCENT 37 % (BEAKER) (test code = 430) MONOCYTES RELATIVE PERCENT 14 % (BEAKER) (test code = 431) EOSINOPHILS RELATIVE PERCENT 0 % (BEAKER) (test code = 432) BASOPHILS RELATIVE PERCENT 0 % (BEAKER) (test code = 437) NEUTROPHILS ABSOLUTE COUNT 2.34 K/ L 1.56-6.13 (BEAKER) (test code = 670) LYMPHOCYTES ABSOLUTE COUNT 1.76 K/ L 1.18-3.74 (BEAKER) (test code = 414) MONOCYTES ABSOLUTE COUNT (BEAKER) 0.68 K/ L 0.24-0.36 H (test code = 415) EOSINOPHILS ABSOLUTE COUNT 0.01 K/ L 0.04-0.36 L (BEAKER) (test code = 416) BASOPHILS ABSOLUTE COUNT (BEAKER) 0.02 K/ L 0.01-0.08 (test code = 417) IMMATURE GRANULOCYTES-RELATIVE 0.20 % 0.00-1.00 PERCENT (BEAKER) (test code = 2801)
--- NOTE | 2023-04-20 11:30 | ER ---
Nurse's Notes [facility] Name: Claribel Clayton Age: 67 yrs Sex: Female : 1955 Arrival Date: 04/20/2023 Time: 11:02 Bed IW3 Private MD: Diagnosis: Bitten by dog;Left leg laceration Presentation: 04/20 11:12 Chief complaint: Patient states: Dog bite to back of left thigh Sunday afternoon - ld1 vaccinated dog. Coronavirus screen: At this time, the client does not indicate any symptoms associated with coronavirus-19. Ebola Screen: No symptoms or risks identified at this time. Risk Assessment: Do you want to hurt yourself or someone else? Patient reports no desire to harm self or others. Onset of symptoms was April 20, 2023 at 11:13. 11:12 Method Of Arrival: Ambulatory ld1 11:12 Acuity: MARIANNE 4 ld1 11:50 Initial Sepsis Screen: Does the patient meet any 2 criteria? No. Patient's initial ss sepsis screen is negative. Does the patient have a suspected source of infection? No. Patient's initial sepsis screen is negative. Triage Assessment: 11:13 Bite description: bite sustained to left hamstring by a dog, animal information: ld1 vaccination(s) is current. General: Appears in no apparent distress. comfortable, Behavior is calm, cooperative, appropriate for age. Pain: Complains of pain in left hamstring Pain does not radiate. Pain currently is 8 out of 10 on a pain scale. Quality of pain is described as throbbing. EENT: No signs and/or symptoms were reported regarding the EENT system. Neuro: Level of Consciousness is awake, alert, obeys commands, Oriented to person, place, time, situation. Cardiovascular: Capillary refill < 3 seconds Patient's skin is warm and dry. Respiratory: Airway is patent Respiratory effort is even, unlabored. GI: Abdomen is flat, non-distended. : No signs and/or symptoms were reported regarding the genitourinary system. Derm: No signs and/or symptoms reported regarding the dermatologic system. Musculoskeletal: No signs and/or symptoms reported regarding the musculoskeletal system. Historical: - Allergies: 11:13 Codeine; ld1 11:13 PENICILLINS; ld1 - PMHx: 11:13 CVA; Hypertension; Hypothyroidism; ld1 - PSHx: 11:13 Colostomy reversal; ld1 - Immunization history:: Adult Immunizations up to date, Client reports receiving the 2nd dose of the Covid vaccine. - Social history:: Smoking status: Patient reports the use of cigarette tobacco products, smokes one-half pack cigarettes per day, Patient/guardian denies using alcohol. Screenin:49 [facility] ED Fall Risk Assessment (Adult) History of falling in the last 3 months, ss including since admission No falls in past 3 months (0 pts). Abuse screen: Denies injuries from another. Nutritional screening: No deficits noted. Tuberculosis screening: No symptoms or risk factors identified. Assessment: 11:50 Derm: Skin is intact, Skin is black, pink. ss Vital Signs: 11:14 BP 185 / 100; Pulse 104; Resp 18; Temp 98.7(O); Pulse Ox 96% on R/A; Weight 63.5 kg; ld1 Height 5 ft. 4 in. ; Pain 2/10; 11:14 Body Mass Index 24.03 (63.50 kg, 162.56 cm) ld1 11:14 Pain Scale: Adult ld1 ED Course: 11:07 Patient arrived in ED. ts1 11:13 Triage completed. ld1 11:13 Arm band placed on right wrist. ld1 11:16 Cheng Frankel DO is Attending Physician. ms3 11:49 Patient has correct armband on for positive identification. Call light in reach. Door ss closed. Noise minimized. 11:49 No provider procedures requiring assistance completed. Patient did not have IV access ss during this emergency room visit. 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 Exp: ss 04/21/2024. Lot #: [id number]. } Route: IM; Site: left gluteus; 11:50 Follow up: Response: (VIS) Vaccine information sheet provided today. Questions and/or ss concerns addressed. VIS edition date: Jun 17, 2021. Medication: 11:50 Vaccine Information Statement (VIS) provided today. Questions and/or concerns ss addressed. VIS edition date: April 20, 2023. Outcome: 11:29 Discharge ordered by . ms3 11:49 Discharged to home ambulatory. ss 11:49 Condition: stable 11:49 Discharge instructions given to patient, Instructed on discharge instructions, follow up and referral plans. medication usage, Demonstrated understanding of instructions, follow-up care, medications. 11:50 Patient left the ED. Signatures: Antonietta Sanders RN RN Cheng Norwood, DO ms3 Lela Frankel RN RN ld1 Joie Chery, PAS PAS ts1 Corrections: (The following items were deleted from the chart) 11:16 11:14 BP 185 / 100; Pulse 104bpm; Resp 18bpm; Pulse Ox 96% RA; Temp 98.6F Oral; 63.5 ld1 kg; Height 5 ft. 4 in.; BMI: 24.0; Pain 2/10, Adult; ld1
--- NOTE | 2023-04-20 11:51 | EDPHYS ---
Physician Documentation [facility] Name: Claribel Clayton Age: 67 yrs Sex: Female : 1955 Arrival Date: 04/20/2023 Time: 11:02 Bed IW3 Private MD: ED Physician Cheng Frankel HPI: 04/20 11:34 This 67 yrs old Female presents to ER via Ambulatory with complaints of Dog Bite. ms3 11:34 67-year-old female with past medical history of CVA, hypertension, hypothyroidism ms3 presents status post dog bite on Sunday. Patient states the dog that bit her was up-to-date on rabies vaccine. Patient states she is having mild pain to the area. Patient denies alleviating or inciting factors. Patient states the area is tender to touch.. Historical: - Allergies: 11:13 Codeine; ld1 11:13 PENICILLINS; ld1 - PMHx: 11:13 CVA; Hypertension; Hypothyroidism; ld1 - PSHx: 11:13 Colostomy reversal; ld1 - Immunization history:: Adult Immunizations up to date, Client reports receiving the 2nd dose of the Covid vaccine. - Social history:: Smoking status: Patient reports the use of cigarette tobacco products, smokes one-half pack cigarettes per day, Patient/guardian denies using alcohol. ROS: 11:34 Constitutional: Negative for fever, and chills. Cardiovascular: Negative for chest ms3 pain, and palpitations. Respiratory: Negative for shortness of breath, cough, wheezing, and pleuritic chest pain, Abdomen/GI: Negative for abdominal pain, nausea, vomiting, diarrhea, and constipation. 11:34 Skin: Positive for ecchymosis, laceration(s), puncture. 11:34 All other systems are negative. Exam: 11:34 Constitutional: This is a well developed, well nourished patient who is awake, alert, ms3 and in no acute distress. Head/Face: Normocephalic, atraumatic. Chest/axilla: Normal chest wall appearance and motion. Nontender with no deformity. Cardiovascular: Regular rate and rhythm with a normal S1 and S2. No gallops, murmurs, or rubs. Normal PMI, no JVD. No pulse deficits. Respiratory: Lungs have equal breath sounds bilaterally, clear to auscultation and percussion. No rales, rhonchi or wheezes noted. No increased work of breathing, no retractions or nasal flaring. Abdomen/GI: Soft, non-tender, with normal bowel sounds. No distension or tympany. No guarding or rebound. No evidence of tenderness throughout. MS/ Extremity: Pulses equal, no cyanosis. Neurovascular intact. Full, normal range of motion. 11:34 Skin: injury, contusion(s), of the left leg, laceration(s), the wound is approximately 3 cm(s), of the left leg. Vital Signs: 11:14 BP 185 / 100; Pulse 104; Resp 18; Temp 98.7(O); Pulse Ox 96% on R/A; Weight 63.5 kg; ld1 Height 5 ft. 4 in. ; Pain 2/10; 11:14 Body Mass Index 24.03 (63.50 kg, 162.56 cm) ld1 11:14 Pain Scale: Adult ld1 MDM: 11:27 Patient medically screened. ms3 11:34 Differential diagnosis: cellulitis, Dog bite versus contusion. Rabies Status: Rabies ms3 immunization is not indicated. Data reviewed: vital signs, nurses notes, and as a result, I will discharge patient. I considered the following discharge prescriptions or medication management in the emergency department Medications were administered in the Emergency Department. See MAR. Counseling: I had a detailed discussion with the patient and/or guardian regarding: the historical points, exam findings, and any diagnostic results supporting the discharge/admit diagnosis, the need for outpatient follow up, to return to the emergency department if symptoms worsen or persist or if there are any questions or concerns that arise at home. Special discussion: I discussed with the patient/guardian in detail that at this point there is no indication for admission to the hospital. It is understood, however, that if the symptoms persist or worsen the patient needs to return immediately for re-evaluation. ED course: Discussed physical exam findings with patient. Patient states her last tetanus was greater than 10 years. Tetanus immunization ordered in the emergency department. Patient to follow-up with her primary care physician in 2 to 3 days for reevaluation of wound. Patient understands and agrees with plan. All questions were answered. Return precautions discussed include worsening symptoms, or any other concerns. 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 Exp: ss 04/21/2024. Lot #: [id number]. } Route: IM; Site: left gluteus; 11:50 Follow up: Response: (VIS) Vaccine information sheet provided today. Questions and/or ss concerns addressed. VIS edition date: Jun 17, 2021. Disposition: 21:00 Chart complete. ms3 Disposition Summary: 04/20/23 11:29 Discharge Ordered Location: Home ms3 Condition: Stable ms3 Diagnosis - Bitten by dog ms3 - Left leg laceration ms3 Followup: ms3 - With: Private Physician - When: 2 - 3 days - Reason: Recheck today's complaints Discharge Instructions: - Discharge Summary Sheet ms3 - Animal Bite, Adult, [id number] ms3 Forms: - Medication Reconciliation Form ms3 - Thank You Letter ms3 - Antibiotic Education ms3 - Prescription Opioid Use ms3 Prescriptions: - Augmentin 875-125 mg Oral Tablet - take 1 tablet by ORAL route every 12 hours for 10 days; 20 tablet; Refills: 0, ms3 Product Selection Permitted Signatures: Antonietta Sanders RN RN ss Cheng Frankel DO DO ms3 Lela Frankel RN RN ld1
[2023-04-20] MEDS ORDERED: TETANUS & DIPHTHERIA TOX,ADULT 0.5 ML VIAL ONE (11:52)
[2023-04-20 12:06] VITALS: BP 185/100; TEMP 98.7; O2SAT 96
== END 2023-04-20 11:50 | disposition home or self-care (01) ==
LOC: ER 11:02
DX: S81.812A Laceration without foreign body, left lower leg, initial encounter (principal); W54.0XXA Bitten by dog, initial encounter; I10 Essential (primary) hypertension; F17.210 Nicotine dependence, cigarettes, uncomplicated; Z23 Encounter for immunization; Z88.0 Allergy status to penicillin; Z88.5 Allergy status to narcotic agent
CPT/HCPCS: 90471; 90714; 99284

== ENCOUNTER → 2024-01-26 | Emergency (ER) | payer OTHER ==
[~2024-01-26] MED LIST: GABAPENTIN 300 MG CAP ONE
--- NOTE | 2024-01-26 17:33 | RAD REPORT ---
EXAM DESCRIPTION: US - Extremity Venous Uni Ltd - 01/26/2024 5:28 pm CLINICAL HISTORY: Pain;Swelling;Numbness/tingling Leg swelling and edema. COMPARISON: No comparisons FINDINGS: Left lower extremity venous system was interrogated with Doppler technique. Normal flow, c ompressibility and augmentation was noted. There is no DVT present. IMPRESSION: No evidence of left lower extremity deep venous thrombosis.
[2024-01-26 17:57] LABS: Hematocrit 41.4 % (36.0-45.0); Hemoglobin 14.1 g/dL (12.0-15.0); MCH 31.4 pg (27.0-35.0); MCV 92.5 fL (80-100); MPV 9.5 fL (7.6-11.3); Platelets 227 thou/uL (152-406); RBC Red Blood Cell Count 4.48 M/uL (3.86-4.86)
--- NOTE | 2024-01-26 18:03 | EDPHYS ---
Physician Documentation [facility] Name: Claribel Clayton Age: 68 yrs Sex: Female : 1955 Arrival Date: 01/26/2024 Time: 16:06 Bed 15 Private MD: MATT Physician Jazmín Nieto HPI: 01/25 16:46 This 68 yrs old Female presents to ER via Ambulatory with complaints of Numbness - LEFT sb4 LEG, Feet Swelling - LEFT. 16:47 The patient presents with pain, that is acute, swelling. The complaints affect the left sb4 calf and left ramos. Onset: The symptoms/episode began/occurred 5 day(s) ago. Modifying factors: The symptoms are alleviated by remaining still, the symptoms are aggravated by movement, weight bearing. Treatment prior to arrival includes: no previous treatment. Patient states that she has not been experiencing pain and numbness in her left lower extremity. She states that she thought she felt a knot on her calf and saw a purpleish discoloration but now it has resolved. She states that her foot is more swollen than usual. She denies any recent travel or prolonged immobilization. She is a daily smoker. Historical: - Allergies: 16:16 Codeine; aa5 16:16 Morphine; aa5 16:16 PENICILLINS; aa5 - PMHx: 16:16 CVA; Hypertension; Hypothyroidism; aa5 16:19 sleep issues; aa5 - PSHx: 16:16 Colostomy reversal; aa5 - Immunization history:: Adult Immunizations unknown. - Social history:: Smoking status: Patient reports the use of cigarette tobacco products. ROS: 16:47 Constitutional: Negative for fever, chills, and weight loss, sb4 16:47 MS/extremity: Positive for pain, swelling, tingling, of the left ramos and left calf, 16:47 All other systems are negative, Exam: 16:47 Constitutional: This is a well developed, well nourished patient who is awake, alert, sb4 and in no acute distress. Head/Face: Normocephalic, atraumatic. Eyes: Extra-ocular motions intact. Periorbital areas with no swelling, redness, or edema. ENT: Mucous membranes moist. Cardiovascular: Regular rate and rhythm with a normal S1 and S2. Respiratory: Lungs have equal breath sounds bilaterally, clear to auscultation and percussion. No rales, rhonchi or wheezes noted. No increased work of breathing, no retractions or nasal flaring. Abdomen/GI: Soft, non-tender, no distension. Skin: Warm, dry with normal turgor. Normal color with no rashes, no lesions, and no evidence of cellulitis. Neuro: Awake and alert, GCS 15, oriented to person, place, time, and situation. Motor strength 5/5 in all extremities. Sensory grossly intact. 16:47 Musculoskeletal/extremity: DVT Exam: no appreciated bluish discoloration, no erythema, pain, swelling, increased warmth, Vital Signs: 16:19 BP 164 / 116; Pulse 95; Resp 18 S; Temp 97.5(TE); Pulse Ox 100% on R/A; Weight 68.04 kg aa5 (R); Height 5 ft. 4 in. (R); 17:50 BP 102 / 74; sb4 16:19 Body Mass Index 25.75 (68.04 kg, 162.56 cm) aa5 MDM: 16:16 Patient medically screened. sb4 18:03 Data reviewed: vital signs, nurses notes, lab test result(s), radiologic studies, and sb4 as a result, I will discharge patient. Counseling: I had a detailed discussion with the patient and/or guardian regarding the historical points, exam findings, and any diagnostic results supporting the discharge/admit diagnosis, lab results, radiology results, to return to the emergency department if symptoms worsen or persist or if there are any questions or concerns that arise at home, smoking cessation. 01/25 17:28 Order name: CBC w/o diff; Complete Time: 18:02 sb4 01/25 17:28 Order name: BMP; Complete Time: 18:10 sb4 01/25 17:28 Order name: Magnesium; Complete Time: 18:10 sb4 01/25 16:45 Order name: Extremity Venous Uni Ltd US; Complete Time: 17:34 sb4 Administered Medications: 17:34 Drug: Gabapentin PO 300 mg PO once Route: PO; me1 18:30 Follow up: Response: No adverse reaction; Pain is decreased me1 18:15 CANCELLED (Physician Discretion): ns 0.9% 1000 ml IV at 1 bolus Per protocol; 1000 mL sb4 bolus Disposition: 19:04 Co-signature as Attending Physician, Jazmín Nieto MD I agree with the assessment and cp3 plan of care. Disposition Summary: 01/26/24 18:03 Discharge Ordered Notes: Location: Home sb4 Problem: new sb4 Symptoms: have improved sb4 Condition: Stable sb4 Diagnosis - peripheral neuropathy sb4 Followup: sb4 - With: Emergency Department - When: As needed - Reason: Trouble breathing, Worsening of condition Discharge Instructions: - Discharge Summary Sheet sb4 - Peripheral Neuropathy sb4 Forms: - Thank You Letter sb4 - Patient Portal Instructions sb4 - Leadership Thank You Letter sb4 Prescriptions: - gabapentin 100 mg Oral capsule - take 2 capsule ORAL route every 12 hours; 20 capsule; Refills: 0, Product sb4 Selection Permitted Signatures: Dispatcher [employer] Jazmín Martinez MD MD cp3 Kacey Bardales, RN RN aa5 Katrin Calderón, PAAntonioC PAAntonioC sb4 Yashira Caballero RN RN me1 Corrections: (The following items were deleted from the chart) 18:15 18:11 NS 0.9% IV 1000 ml IV at 1 bolus Per protocol; 1000 mL bolus ordered. sb4 sb4
--- NOTE | 2024-01-26 18:03 | ER ---
Nurse's Notes [facility] Name: Claribel Clayton Age: 68 yrs Sex: Female : 1955 Arrival Date: 01/26/2024 Time: 16:06 Bed 15 Private MD: Diagnosis: peripheral neuropathy Presentation: 01/25 16:16 Chief complaint: Chief complaint: Patient states: left lower leg burning/numbing pain aa5 that began on . 16:19 Coronavirus screen: At this time, the client does not indicate any symptoms associated aa5 with coronavirus-19. Ebola Screen: Patient denies travel to an Ebola-affected area in the 21 days before illness onset. Initial Sepsis Screen: Does the patient meet any 2 criteria? No. Patient's initial sepsis screen is negative. Does the patient have a suspected source of infection? No. Patient's initial sepsis screen is negative. Risk Assessment: Do you want to hurt yourself or someone else? Patient reports no desire to harm self or others. Onset of symptoms was January 2024. 16:19 Acuity: MARIANNE 3 aa5 16:19 Method Of Arrival: Ambulatory aa5 Historical: - Allergies: 16:16 Codeine; aa5 16:16 Morphine; aa5 16:16 PENICILLINS; aa5 - PMHx: 16:16 CVA; Hypertension; Hypothyroidism; aa5 16:19 sleep issues; aa5 - PSHx: 16:16 Colostomy reversal; aa5 - Immunization history:: Adult Immunizations unknown. - Social history:: Smoking status: Patient reports the use of cigarette tobacco products. Screenin:26 [facility] ED Fall Risk Assessment (Adult) History of falling in the last 3 months, me1 including since admission No falls in past 3 months (0 pts) Confusion or Disorientation No (0 pts) Intoxicated or Sedated No (0 pts) Impaired Gait No (0 pts) Mobility Assist Device Used No (0 pt) Altered Elimination No (0 pt) Score/Fall Risk Level 0 - 2 = Low Risk Maintained a safe environment, Provided non-skid footwear, Hourly rounding (assess needs \T\ fall precautionary measures) done. Abuse screen: Denies threats or abuse. Nutritional screening: No deficits noted. Tuberculosis screening: No symptoms or risk factors identified. Assessment: 16:25 General: Appears uncomfortable, well groomed, well developed, well nourished, Behavior me1 is calm, cooperative, appropriate for age, Reports LLE burning pain/numbness that began on with some edema to LLE as well. 16:26 Pain: Complains of pain in left leg Pain does not radiate. Pain currently is 5 out of me1 10 on a pain scale. Quality of pain is described as burning, numb, Pain began gradually, 2-3 days ago. Is continuous. Neuro: Level of Consciousness is awake, alert, obeys commands, Oriented to person, place, time, situation, Appropriate for age. Cardiovascular: Capillary refill < 3 seconds Patient's skin is warm and dry. Respiratory: Airway is patent Trachea midline Respiratory effort is even, unlabored, Respiratory pattern is regular, symmetrical. Derm: Skin is intact, is healthy with good turgor, Skin is dry, Skin is pink, warm \T\ dry. Musculoskeletal: Reports pain in left leg. Vital Signs: 16:19 BP 164 / 116; Pulse 95; Resp 18 S; Temp 97.5(TE); Pulse Ox 100% on R/A; Weight 68.04 kg aa5 (R); Height 5 ft. 4 in. (R); 17:50 BP 102 / 74; sb4 16:19 Body Mass Index 25.75 (68.04 kg, 162.56 cm) aa5 ED Course: 16:09 Patient arrived in ED. mg5 16:16 Katrin Calderón PA-C is PHCP. sb4 16:16 Jazmín Nieto MD is Attending Physician. sb4 16:16 Arm band placed on. aa5 16:20 Triage completed. aa5 16:24 Yashira Caballero, JONA is Primary Nurse. me1 16:26 Patient has correct armband on for positive identification. Bed in low position. Call me1 light in reach. Side rails up X 1. Provided Education on: POC. Verbalized understanding. . 16:26 No provider procedures requiring assistance completed. me1 17:30 Extremity Venous Uni Ltd US In Process Unspecified. EDMS 17:46 CBC w/o diff Sent. me1 17:46 BMP Sent. me1 17:46 Magnesium Sent. me1 17:46 Initial lab(s) drawn, by me, sent to lab. Inserted saline lock: 22 gauge in right me1 forearm, using aseptic technique. 18:28 IV discontinued, intact, bleeding controlled, No redness/swelling at site. Pressure me1 dressing applied. Administered Medications: 17:34 Drug: Gabapentin PO 300 mg PO once Route: PO; me1 18:30 Follow up: Response: No adverse reaction; Pain is decreased me1 18:15 CANCELLED (Physician Discretion): ns 0.9% 1000 ml IV at 1 bolus Per protocol; 1000 mL sb4 bolus Medication: 16:26 VIS not applicable for this client. me1 Outcome: 18:03 Discharge ordered by . sb4 18:28 Discharged to home ambulatory, me1 18:28 Condition: stable 18:28 Discharge instructions given to patient, Instructed on discharge instructions, follow up and referral plans. medication usage, Demonstrated understanding of instructions, follow-up care, medications, Prescriptions given X 1, 18:30 Patient left the ED. me1 Signatures: Dispatcher [employer] EDKacey Smith RN RN aa5 Katrin Calderón PA-C PATony sb4 Yashira Caballero RN RN me1 Kathe Booker mg5 Corrections: (The following items were deleted from the chart) 16:20 16:16 Chief complaint: aa5 aa5 16:33 16:25 General: Appears uncomfortable, well groomed, well developed, well nourished, me1 Behavior is calm, cooperative, appropriate for age, Reports me1
[2024-01-26 18:10] LABS: Anion Gap 12.1 mEq/L (5.0-15.0); Magnesium 2.3 mg/dL (1.6-2.4); Potassium 4.1 mEq/L (3.5-5.1)
[2024-01-26 19:24] VITALS: BP 102/74; TEMP 97.5; O2SAT 100
== END ==
LOC: ER 16:06
DX: G62.9 Polyneuropathy, unspecified (principal); Z88.0 Allergy status to penicillin; Z88.5 Allergy status to narcotic agent
CPT/HCPCS: 36415; 80048; 83735; 85027; 93971; 99284

== ENCOUNTER 2024-04-29 09:10 | Emergency (ER) | payer OTHER ==
[2024-04-29 10:16] LABS: Absolute Basophils 0.1 K/uL (0-0.5); Absolute Eosinophils 0.2 K/uL (0-0.5); Absolute Lymphocytes (CBC) 1.6 K/uL (0.7-4.9); Absolute Monocytes 0.7 K/uL (0.1-1.3); Basophils % 0.6 % (0-1.3); Eosinophils % 2.5 % (0-4.4); Hematocrit 45.6 % (36.0-45.0); Hemoglobin 15.1 g/dL (12.0-15.0); Lymphocytes % 16.3 % (15.3-44.8); MCH 30.6 pg (27.0-35.0); MCHC 33.1 g/dL (32.0-36.0); MCV 92.4 fL (80-100); MPV 9.5 fL (7.6-11.3); Monocytes % 7.7 % (3.3-12.3); Neutrophils % 72.9 % (41.7-73.7); Nucleated Red Blood Cells % 0.1 % (0-0); Platelets 213 thou/uL (152-406); RBC Red Blood Cell Count 4.94 M/uL (3.86-4.86); Red Cell Distribution Width 14.1 % (12.1-15.2)
[2024-04-29 10:25] LABS: Specific Gravity 1.018 (1.005-1.030); Urine Bilirubin NEGATIVE (Negative); Urine Blood Negative (Negative); Urine Clarity Clear (Clear); Urine Color Light-Yellow (Yellow); Urine Glucose NEGATIVE (Negative); Urine Ketones NEGATIVE (Negative); Urine Microscopic Reflex YN NO UMIC; Urine Nitrite NEGATIVE (Negative); Urine Protein NEGATIVE (Negative); Urine Urobilinogen Normal (Normal)
[2024-04-29 10:32] LABS: Albumin 3.8 g/dL (3.4-5.0); Bilirubin Total 0.5 mg/dL (0.2-1.0); Globulin 3.8 g/dL (2.3-3.5); Protein, Total 7.6 g/dL (6.4-8.2)
[2024-04-29] MEDS ORDERED: ONDANSETRON 4 MG/2 ML VIAL ONE (10:35)
[2024-04-29] MEDS ORDERED: NA CHLORIDE 0.9% 1,000 ML ONE (10:36)
[2024-04-29] MEDS ORDERED: MORPHINE 4 MG/ML SYR ONE (10:36)
--- NOTE | 2024-04-29 11:38 | RAD REPORT ---
EXAM DESCRIPTION: CT - Abdomen Pelvis W Contrast - 04/29/2024 10:49 am CLINICAL HISTORY: ABD PAIN COMPARISON: Abdomen Pelvis W Contrast dated 11/19/2021; Abdomen Pelvis Wo Contrast dated 01/12/2023 TECHNIQUE: Thin cut axial CT imaging of the abdomen and pelvis was performed following intravenous a dministration of 100 mL Isovue 300. Multiplanar reformats were generated and reviewed. All CT scans are performed using dose optimization technique as appropriate and may include automated exposure control or mA/KV adjustment according to patient size. FINDINGS: No suspicious findings in the lung bases. The liver, spleen, adrenal glands, and pancreas show no suspicious findings. Gallbladder was surgical ly removed. Symmetric renal function is seen with no hydronephrosis or suspicious renal mass. No dilated bowel loops or bowel wall thickening. No free air, free fluid or inflammatory stranding. N o hernia, mass or bulky lymphadenopathy. Calcified fibroid along the anterior wall of the uterus. The urinary bladder is decompressed limiting evaluation. Superior endplate compression deformity at T11, appears new since the prior exam. IMPRESSION: No acute intra-abdominal process. Superior endplate compression deformity at T11, appears new since the most recent abdominal CT, ultim ately of indeterminate age.
--- NOTE | 2024-04-29 12:16 | RAD REPORT ---
EXAM DESCRIPTION: US - Abdomen Exam Limited - 04/29/2024 9:55 am CLINICAL HISTORY: Biliary tree eval COMPARISON: Cholangiogram Oper-Xray Or dated 02/13/2023 TECHNIQUE: Sonographic grayscale and color flow images of the right upper abdominal quadrant were o btained. FINDINGS: The gallbladder was surgically removed. The common bile duct is prominent measuring up to 12 mm. The liver demonstrates no findings of intrahepatic biliary dilatation. IMPRESSION: Status post cholecystectomy. Prominent caliber of the common bile duct, may relate to re servoir effect.
[2024-04-29 12:54] VITALS: BP 165/83; TEMP 97.8; O2SAT 100
--- NOTE | 2024-04-29 18:01 | ER ---
Nurse's Notes [facility] Name: Claribel Clayton Age: 68 yrs Sex: Female : 1955 Arrival Date: 04/29/2024 Time: 09:10 Bed 25 Private MD: Diagnosis: Upper abdominal pain, unspecified;Abnormal Bile Duct Presentation: 04/29 09:31 Chief complaint: Patient states: epigastric pain and indigestion since 4 am, she had iw her gallbladder out years ago and Dr. Houston said there was an issue with her bile duct. Coronavirus screen: At this time, the client does not indicate any symptoms associated with coronavirus-19. Ebola Screen: No symptoms or risks identified at this time. Initial Sepsis Screen: Does the patient meet any 2 criteria? No. Patient's initial sepsis screen is negative. Does the patient have a suspected source of infection? No. Patient's initial sepsis screen is negative. Risk Assessment: Do you want to hurt yourself or someone else? Patient reports no desire to harm self or others. Onset of symptoms was April 29, 2024. 09:31 Method Of Arrival: Ambulatory iw 09:31 Acuity: MARIANNE 3 iw Historical: - Allergies: 09:32 Codeine; iw 09:32 Morphine; iw 09:32 PENICILLINS; iw - PMHx: 09:32 Hypertension; CVA; Hypothyroidism; sleep issues; iw - PSHx: 09:32 Colostomy reversal; Cholecystectomy; iw - Immunization history:: Adult Immunizations up to date. - Infectious Disease History:: Denies. - Social history:: Smoking status: . Screenin:30 Abuse screen: Denies threats or abuse. Nutritional screening: No deficits noted. ap3 Tuberculosis screening: No symptoms or risk factors identified. 12:23 [facility] ED Fall Risk Assessment (Adult) History of falling in the last 3 months, ap3 including since admission No falls in past 3 months (0 pts) Confusion or Disorientation No (0 pts) Intoxicated or Sedated No (0 pts) Impaired Gait No (0 pts) Mobility Assist Device Used No (0 pt) Altered Elimination No (0 pt) Score/Fall Risk Level 0 - 2 = Low Risk Oriented to surroundings, Maintained a safe environment, Educated pt \T\ family on fall prevention, incl call for assistance when getting out of bed, Assessed \T\ reinforced patient's understanding of fall precautions, Provided non-skid footwear, Hourly rounding (assess needs \T\ fall precautionary measures) done, Used ambulatory aids as needed (educated on \T\ assisted with), Used gait belt as appropriate. Assessment: 11:30 Reassessment: Patient and/or family updated on plan of care and expected duration. Pain ap3 level reassessed. Patient is alert, oriented x 3, equal unlabored respirations, skin warm/dry/pink. Patient states feeling better. Patient states symptoms have improved. General: Appears in no apparent distress. Behavior is calm, cooperative, appropriate for age. Pain: Denies pain. Neuro: Level of Consciousness is awake, alert, obeys commands, Oriented to person, place, time, situation, Appropriate for age. Cardiovascular: Patient's skin is warm and dry. Respiratory: Airway is patent Respiratory effort is even, unlabored. GI: Abd is soft. Vital Signs: 09:31 BP 158 / 89; Pulse 70; Resp 16; Temp 97.8; Pulse Ox 100% ; Weight 65.77 kg; Height 5 iw ft. 4 in. ; 11:29 BP 165 / 83; Pulse 69; Resp 17; Pulse Ox 100% ; Pain 0/10; ap3 09:31 Body Mass Index 24.89 (65.77 kg, 162.56 cm) iw 11:29 Pain Scale: Adult ap3 ED Course: 09:13 Patient arrived in ED. mr 09:31 Mitchell Echevarria MD is Attending Physician. ec2 09:32 Triage completed. iw 09:33 Arm band placed on. iw 09:57 US Abdomen Limited In Process Unspecified. EDMS 10:09 CBC with Diff Sent. bc6 10:09 CMP Sent. bc6 10:10 Lipase Sent. bc6 10:10 Initial lab(s) drawn, by me, sent to lab. Inserted saline lock: 24 gauge in right bc6 forearm, using aseptic technique. Blood collected. 10:51 CT Abd/Pelvis - IV Contrast Only In Process Unspecified. EDMS 11:29 Hermelinda Groves, JONA is Primary Nurse. ap3 11:30 Patient has correct armband on for positive identification. Placed in gown. Bed in low ap3 position. Call light in reach. Side rails up X 1. Provided Education on: fall risk and call light education. 12:23 No provider procedures requiring assistance completed. ap3 12:38 IV discontinued, intact, bleeding controlled, No redness/swelling at site. Pressure ap3 dressing applied. Administered Medications: 10:36 CANCELLED (Patient Refused): morphineor iv 4 mg IVP once over 4 mins ec2 12:24 Not Given (Patient Refused): ns 0.9% 1000 ml IV at 1 bolus Per protocol; 1000 mL bolus ap3 12:24 Not Given (Patient Refused): [id number] mg IVP once; dilute with 10 mL 0.9% NaCl; ap3 give over 2 minutes 12:25 Not Given (Patient Refused): ondansetron 4 mg IVP once; over 2 minutes ap3 Medication: 11:31 VIS not applicable for this client. ap3 Outcome: 12:23 Discharge ordered by . ec2 12:38 Discharged to home ambulatory, ap3 12:38 Condition: good 12:38 Discharge instructions given to patient, Instructed on discharge instructions, follow up and referral plans. Demonstrated understanding of instructions, follow-up care, 12:38 Patient left the ED. ap3 Signatures: Dispatcher [employer] EDIA Matilda Saucedo, Reg Reg mr Hortensia Hernández, RN Hermelinda Dyer RN RN ap3 Melissa Ahmadi 6 Mitchell Echevarria MD MD ec2
--- NOTE | 2024-04-29 18:01 | EDPHYS ---
Physician Documentation [facility] Name: Claribel Clayton Age: 68 yrs Sex: Female : 1955 Arrival Date: 04/29/2024 Time: 09:10 Bed 25 Private MD: ED Physician Mitchell Echevarria HPI: 04/29 10:38 This 68 yrs old Female presents to ER via Ambulatory with complaints of ec2 Abdominal Pain. 10:38 Patient arrives today for evaluation of upper abdominal pain. States started this ec2 morning, has improved since then. Reports associated nausea. Patient reports history of cholecystectomy, was told that she may have some bile duct issues in the future. Patient denies any urinary complaints. Denies any chest pain or difficulty breathing.. Historical: - Allergies: 09:32 Codeine; iw 09:32 Morphine; iw 09:32 PENICILLINS; iw - PMHx: 09:32 Hypertension; CVA; Hypothyroidism; sleep issues; iw - PSHx: 09:32 Colostomy reversal; Cholecystectomy; iw - Immunization history:: Adult Immunizations up to date. - Infectious Disease History:: Denies. - Social history:: Smoking status: . ROS: 10:38 Constitutional: as per hpi ec2 Exam: 10:38 Constitutional: GEN: NAD Head: atraumatic Eyes: EOMI Ears: External ears are ec2 normal. CV: regular rate LUNGS: no respiratory distress ABD: non-distended, soft, nontender, no guarding, not rigid SKIN: no evidence of rashes MSK: no evidence of trauma NEURO: moves all extremities equally Vital Signs: 09:31 BP 158 / 89; Pulse 70; Resp 16; Temp 97.8; Pulse Ox 100% ; Weight 65.77 kg; Height 5 iw ft. 4 in. ; 11:29 BP 165 / 83; Pulse 69; Resp 17; Pulse Ox 100% ; Pain 0/10; ap3 09:31 Body Mass Index 24.89 (65.77 kg, 162.56 cm) iw 11:29 Pain Scale: Adult ap3 MDM: 09:45 Patient medically screened. ec2 10:38 Data reviewed: vital signs. ED course: Patient arrives today for evaluation of upper ec2 abdominal pain peer examination remarkable for abdominal findings as above. Will obtain lab work, urine studies, CT imaging, ultrasound. Differential diagnosis include pancreatitis, gastritis, CBD pathology.. 10:41 ED course: CBC reassuring. Metabolic profile with appropriate electrolytes, renal ec2 dysfunction with a creatinine of 1.06 and a GFR 57, LFTs are unremarkable, lipase is reassuring, urine is noninfectious appearing pending ultrasound and CT imaging . 12:10 ED course: CT on pelvis shows no acute intra-abdominal process. Shows back injury, ec2 patient without any specific back pain. . 12:22 ED course: CBD dilation noted at 12 mm, patient reports marked improvement in symptoms ec2 without recurrence of symptoms, states that she would like to go home. Her discharge home, instructed on return precautions. . 04/29 09:42 Order name: CBC with Diff; Complete Time: 10:41 ec2 04/29 09:42 Order name: CMP; Complete Time: 10:41 ec2 04/29 09:42 Order name: Lipase; Complete Time: 10:41 ec2 04/29 09:42 Order name: Urinalysis w/ reflexes; Complete Time: 10:41 ec2 04/29 09:42 Order name: CT Abd/Pelvis - IV Contrast Only; Complete Time: 12:10 ec2 04/29 09:42 Order name: US Abdomen Limited; Complete Time: 12:21 ec2 04/29 09:42 Order name: IV Saline Lock; Complete Time: 10:09 ec2 04/29 09:42 Order name: Labs collected and sent; Complete Time: 10:09 ec2 Administered Medications: 10:36 CANCELLED (Patient Refused): morphineor iv 4 mg IVP once over 4 mins ec2 12:24 Not Given (Patient Refused): ns 0.9% 1000 ml IV at 1 bolus Per protocol; 1000 mL bolus ap3 12:24 Not Given (Patient Refused): mg IVP once; dilute with 10 mL 0.9% NaCl; ap3 give over 2 minutes 12:25 Not Given (Patient Refused): ondansetron 4 mg IVP once; over 2 minutes ap3 Disposition Summary: 04/29/24 12:23 Discharge Ordered Notes: Location: Home ec2 Condition: Stable ec2 Diagnosis - Upper abdominal pain, unspecified ec2 - Abnormal Bile Duct ec2 Followup: ec2 - With: Private Physician - When: - Reason: Re-evaluation by your physician Discharge Instructions: - Discharge Summary Sheet ec2 - Abdominal Pain, Adult ec2 Forms: - Medication Reconciliation Form ec2 - Antibiotic Education ec2 - Prescription Opioid Use ec2 - Patient Portal Instructions ec2 - Leadership Thank You Letter ec2 Signatures: Dispatcher [employer] Hortensia Murillo, RN JONA iw Hermelinda Groves RN RN ap3 Mitchell Echevarria MD MD ec2 Corrections: (The following items were deleted from the chart) 09:42 09:42 CBC+H.LAB.BRZ ordered. EDMS EDMS 09:42 09:42 COMPREHENSIVE METABOLIC PANEL+C.LAB.BRZ ordered. EDMS EDMS 09:42 09:42 LIPASE+C.LAB.BRZ ordered. EDMS EDMS 09:42 09:42 Urinalysis+U.LAB.BRZ ordered. EDMS EDMS 09:43 09:42 Abdomen Pelvis W Con+CT.RAD.BRZ ordered. EDMS EDMS 09:43 09:43 Abdomen Limited+US.RAD.BRZ ordered. EDMS EDMS 10:36 09:42 morphine IVP or IV 4 mg IVP once over 4 mins ordered. ec2 ec2
== END 2024-04-29 12:38 | disposition home or self-care (01) ==
LOC: ER 09:10
DX: R10.10 Upper abdominal pain, unspecified (principal); K83.9 Disease of biliary tract, unspecified
CPT/HCPCS: 85025; 36415; 81003; 83690; 80053; 74177; 76705; Q9967; J7030; J2405